=== PATIENT | male | born 1990 | race Two or more races ===

== ENCOUNTER 2023-01-21 14:36 | Emergency (ER) | payer OTHER, SELFPAY ==
[2023-01-21 14:40] VITALS: BP 138/82; PULSE 96; RESP 16; TEMP 36.3; O2SAT 97; BMI 39.2
--- NOTE | 2023-01-21 15:56 | CRLHL7_ITS ---
For Patients: As a result of the Century Cures Act, medical imaging exams and procedure reports are released immediately into your electronic medical record. You may view this report before your referring provider. If you have questions, please contact your health care provider. INDICATION: Head injury TECHNIQUE: CT head without contrast. COMPARISON: None. FINDINGS: CSF spaces: Within normal limits for age. Brain parenchyma: The bernal-white differentiation is normal. No sign of mass, hemorrhage, or midline shift. Skull base and calvarium: The visualized paranasal sinuses and mastoid air cells demonstrate no acute or significant findings. The visualized orbits are grossly unremarkable. No skull fractures. IMPRESSION: Unremarkable noncontrast head CT. Please note that all CT scans at this facility use dose modulation, iterative reconstruction, and/or weight-based dosing when appropriate to reduce radiation dose to as low as reasonably achievable. Dictated by Juvencio Lombardi MD @ 01/21/2023 5:15:16 PM (Electronically Signed)
--- NOTE | 2023-01-21 16:02 | ED_ITS ---
HPI - General Adult General Date Seen: 01/21/23 Chief complaint: Weakness Stated complaint: Fell Wednesday, dizzy since Time Seen by Provider: 01/21/23 15:43 Source: patient Mode of arrival: ambulatory Limitations: no limitations History of Present Illness HPI narrative: One patient is a 32-year-old male who fell one backward five days ago hitting his back and the back of his head on cement. He did not lose consciousness. He had immediate lightheadedness but no neurologic deficit. No bleeding or fluid from his ears or nose. In the past three days he has had some generalized weakness and vertigo. He vomited twice yesterday. He has been drinking but is not eating. No decreased level of consciousness, slurred speech, hearing or vision changes, focal neurologic deficit. No history of concussion. No other chronic health problems. He has not been taking any medications regularly. Related Data Previous Rx's Medication Instructions Recorded meclizine 25 mg tablet 25 mg PO TID PRN dizziness #15 tabs 01/21/23 Allergies Allergy/AdvReac Type Severity Reaction Status Date / Time No Known Drug Allergies Allergy Verified 01/21/23 14:42 Review of Systems Narrative: Review of systems is outlined above otherwise noted to be negative. PFSH PFSH Social History Smoking Status: Never smoker Do you use any of these nicotine containing products: None How often do you have a drink containing alcohol: never AUDIT-C Alcohol total score: 0 Non-prescribed substance use: denies use Exam Narrative: Exam Narrative: Vitals noted. HEENT: Conjunctiva clear. Tympanic membranes are pearly white bilaterally. Posterior pharynx is clear without erythema or exudate. Neck is supple without adenopathy, thyromegaly, carotid bruit. Full range of motion of the cervical spine. He has some tenderness on the left posterior skull but no bony deformity or crepitus is noted. No reproducible nystagmus. Lungs: Clear to auscultation in all joya. No wheezes, rales, rhonchi. Heart: Regular rate and rhythm without murmur. Abdomen: Soft and nontender. No guarding, rigidity, rebound. Bowel sounds are normal. No palpable masses. Extremities: No cyanosis or edema. Good distal pulses. Skin: No abnormalities noted of the exposed skin. Neurologic: Awake, alert, fully oriented. Neurologic exam is nonfocal. He is ambulatory without difficulty. Speech is clear. Const: Vital Signs, click to edit/add: Vital Signs - 24 hr 01/21/23 14:40 01/21/23 17:01 Temperature 97.3 F L 97.6 F Pulse Rate [Right Pulse Oximeter] 96 90 Respiratory Rate 16 16 Blood Pressure [Ri ght Upper Arm] 138/82 130/80 Pulse Oximetry 97 96 Oxygen Delivery Me thod Room Air Room Air Course Course Hospital Course: Patient seen and examined. IV is established she is given a L of normal saline. CT of his head is ordered. Reevaluation(s) Reevaluation #1: CT is unremarkable. He felt better after his IV fluids. He was also given a dose of meclizine 25 mg orally. Typical instructions following a closed head injury were given. Vital Signs Vital signs: Initial Vital Signs Temperature 97.3 F L 01/21/23 14:40 Temperature Source Temporal Artery Scan 01/21/23 14:40 Pulse Rate 96 01/21/23 14:40 Pulse Rhythm Regular 01/21/23 14:40 Pulse Strength 3+ Normal 01/21/23 14:40 Respiratory Rate 16 01/21/23 14:40 Blood Pressure 138/82 01/21/23 14:40 Blood Pressure Mean 100 01/21/23 14:40 Blood Pressure Position Sitting 01/21/23 14:40 Pulse Oximetry 97 01/21/23 14:40 Oxygen Delivery Method Room Air 01/21/23 14:40 Vital Signs Temperature 97.3 F L 01/21/23 14:40 Pulse Rate 96 01/21/23 14:40 Respiratory Rate 16 01/21/23 14:40 Blood Pressure 138/82 01/21/23 14:40 Pulse Oximetry 97 01/21/23 14:40 Oxygen Delivery Method Room Air 01/21/23 14:40 Temperature 97.6 F 01/21/23 17:01 Pulse Rate 90 01/21/23 17:01 Respiratory Rate 16 01/21/23 17:01 Blood Pressure 130/80 01/21/23 17:01 Pulse Oximetry 96 01/21/23 17:01 Oxygen Delivery Method Room Air 01/21/23 17:01 Discharge Plan Discharge Clinical Impression: Post concussive syndrome Patient Disposition: Home, Self-Care Condition: Improved Additional Instructions: No work until 01/25/2023. Rest, avoid screen time (TV, cellphone, computer). Push fluids. Tylenol or ibuprofen for headaches. Meclizine for vertigo. Follow-up with Dr Forrest if no better over the next 3-5 days. Prescriptions: New meclizine 25 mg tablet 25 mg PO TID PRN (Reason: dizziness) Qty: 15 0RF Follow Up/Referrals: Fe Forrest MD [Primary Care Provider] - Stand Alone Forms: [employer] Info Instructions
[2023-01-21] MEDS: 0.9 % SODIUM CHLORIDE 1000 ml 1,000 ML IV (16:25)
[2023-01-21] MEDS: MECLIZINE HCL 25 MG TABLET PO (16:59)
[2023-01-21 17:01] VITALS: BP 130/80; PULSE 90; RESP 16; TEMP 36.4; O2SAT 96
== END 2023-01-21 17:27 | disposition home or self-care (01) ==
PROVIDERS: Emergency Provider Family Medicine; PCP Family Medicine
DX: F07.81 Postconcussional syndrome (principal)
CPT/HCPCS: 70450; 99282; 99283; 99284; A9270; J7030

== ENCOUNTER 2024-06-19 08:17 | Outpatient (CLI) | payer OTHER, SELFPAY | END 2024-06-19 08:18 | disposition home or self-care (01) | LOC: AMB 06-21 03:13 | PROVIDERS: PCP Family Medicine; Visit Provider Family Medicine | DX: R56.9 Unspecified convulsions (principal); R42 Dizziness and giddiness | CPT/HCPCS: A0425; A0427 ==

== ENCOUNTER 2024-06-19 08:42 | Emergency (ER) | payer OTHER, SELFPAY ==
[2024-06-19 08:49] VITALS: BP 140/115; PULSE 154; RESP 22; TEMP 36.6; O2SAT 95; BMI 40.7
--- NOTE | 2024-06-19 09:01 | ED_ITS ---
HPI - General Adult General Time Seen by Provider: 09:01 Date Seen: 06/19/24 Chief complaint: Seizure Stated complaint: seizure Time Seen by Provider: 06/19/24 09:01 Source: patient and RN notes reviewed Mode of arrival: ambulatory Limitations: no limitations History of Present Illness HPI narrative: This 34-year-old male is brought in by ambulance with probable seizure. Patient was driving to work, started to notice his vision was blurring, he did drive a little bit thinking his eyes were maybe just dry. Eventually he pulled over and the next thing he noted he was on the ground with people around him. A witness whom talk to EMS stated he looks like he was having seizure activity. Patient noted with his vision closing in, he was feeling funny. He does not recollect any abnormal movements. His tongue is sore, did have blood it is mouth. He has never had a prior seizure. He notes he did hit his head in the shower yesterday. He had some alcohol Wednesday night, couple beers. Denies any chronic alcohol use, no illicit drug use, no medicines or supplements. He notes he does have severe anxiety. 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 Related Data Home Medications ?Medication ?Instructions ?Recorded ?Confirmed sertraline 50 mg tablet 50 mg PO DAILY 06/19/24 06/19/24 Previous Rx's ?Medication ?Instructions ?Recorded meclizine 25 mg tablet 25 mg PO TID PRN dizziness #15 tabs 01/21/23 Allergies Allergy/AdvReac Type Severity Reaction Status Date / Time No Known Drug Allergies Allergy Verified 01/21/23 14:42 Review of Systems Status of ROS: Reports: 6 or more systems reviewed and unremarkable except as noted in History and below [facility] Social History Smoking Status: Never smoker Do you use any of these nicotine containing products: None How often do you have a drink containing alcohol: never How often do you have six or more drinks on one occasion: Never AUDIT-C Alcohol total score: 0 Non-prescribed substance use: denies use Exam Const: Vital Signs, click to edit/add: Vital Signs - 24 hr 06/19/24 08:49 06/19/24 09:09 Temperature 98 F Pulse Rate [Right Pulse Oximeter] 154 H Respiratory Rate 22 Blood Pressure [Ri ght Upper Arm] 140/115 H Pulse Oximetry 95 94 Oxygen Delivery Me thod Room Air This 34-year-old male is alert, interactive, back to baseline, GCS 15/15. Pupils equal round reactive, sclera clear. He has some dried blood around his lips, can see a non bleeding bite on the left lateral tongue, some dried blood on along the tongue. Mucosa is dry. His speech is currently normal. CV fast but regular, no murmur. Lungs are clear, good air entry, no wheezing or crackles. Does seem mildly anxious but overall speech is normal and patient is lucid. Gross motor normal. He is able to follow commands at this time. No concern for any altered state at this time, not postictal. Documenting provider has reviewed patient's vital signs: yes Course Course ED Course: Patient's exam certainly seems to suggest that he did have a seizure with the tongue being bit. There was no loss of bowel or bladder but there is oral trauma. I doubt that this is anxiety, do feel that this represents seizure disorder. Will do head CT given that he did report hitting his head yesterday. Will do full laboratory workup. Reevaluation(s) Time of Reevaluation #1: 10:34 Reevaluation #1: Patient's heart rate is still elevated in the 130s, he states his only had a little coffee. He does not seem anxious any longer. Do think I will initiate some IV fluids. Will talk to Neurology on him, he will need follow-up outpatient. His potassium is mildly low, am replacing with oral. Did also review his elevated liver functions, will ultrasound just to ensure that we are not missing something but certainly could be fatty liver. I do supposed there is also the possibility that there can be anoxic injury but does not sound that he had an extended seizure. Time of Reevaluation #2: 13:28 Reevaluation #2: Provided copy of the ultrasound. We discussed that he very likely has fatty liver causing the elevated liver enzymes. He has had no further seizure activity, plan will be discharged to home. Reviewed with him that I did speak with his primary doctor, Dr. Munoz. She is aware of the elevated liver enzym es, did send her his ultrasound report. Will send her his liver enzyme levels. We have scheduled him a follow-up with her this week. She is placing stat referrals for Neurology for further seizure workup. I have discussed with him no driving, no operating machinery where he might get injured, no solitary bathing or swimming or hot tub until cleared by Neurology. We will provide him a note for work. Consultations Consultation #1: Did speak with Dr. Dhillon Neurology at [facility]. He recommended follow-up with [facility] or [facility]. He provided me with a general phone number from [facility]. Did contact [facility] and they would not let me talk to her provider, stated we needed to do the new referral as the patient had not been seen there before. Did review with them that this is a first-time seizure patient and he would have no reason to have seen them before. Reviewed that I was in the ER, do not have a referral process. Time: 10:55 Consultation #2: Spoke with patient's primary care provider Dr. Munoz. She is placing the neurology referral. Did discuss his liver enzymes and that we have an ultrasound pending, certainly could be fatty liver disease but does seem significant for liver enzymes. We will make sure she gets these results. Vital Signs Vital signs: Initial Vital Signs Temperature 98 F 06/19/24 08:49 Temperature Source Temporal Artery Scan 06/19/24 08:49 Pulse Rate 154 H 06/19/24 08:49 Pulse Rhythm Regular 06/19/24 08:49 Pulse Strength 3+ Normal 06/19/24 08:49 Respiratory Rate 22 06/19/24 08:49 Blood Pressure 140/115 H 06/19/24 08:49 Blood Pressure Mean 123 H 06/19/24 08:49 Blood Pressure Position Semi-Fowlers 06/19/24 08:49 Pulse Oximetry 95 06/19/24 08:49 Oxygen Delivery Method Room Air 06/19/24 08:49 Vital Signs Temperature 98 F 06/19/24 08:49 Pulse Rate 154 H 06/19/24 08:49 Respiratory Rate 22 06/19/24 08:49 Blood Pressure 140/115 H 06/19/24 08:49 Pulse Oximetry 95 06/19/24 08:49 Oxygen Delivery Method Room Air 06/19/24 08:49 Temperature 98 F 06/19/24 08:49 Pulse Rate 154 H 06/19/24 08:49 Respiratory Rate 22 06/19/24 08:49 Blood Pressure 140/115 H 06/19/24 08:49 Pulse Oximetry 94 06/19/24 09:09 Oxygen Delivery Method Room Air 06/19/24 08:49 Medications Administered Medications: Discontinued Medications Generic Name Dose Route Start Last Admin Trade Name Brendan PRN Reason Stop Dose Admin Lactated Ringer's 1,000 mls @ 1,000 mls/hr 06/19/24 10:46 06/19/24 11:37 Lactated Ringers 1000 Ml IV 06/19/24 11:45 Infused .Q1H ONE Infusion Potassium Bicarbonate 25 meq 06/19/24 10:45 06/19/24 12:36 Potassium Bicarb 25 Meq Effervescent Tab PO 06/19/24 12:46 25 meq Q2H HEMANTH Administration Medical Decision Making Lab Data Lab results reviewed: Yes I reviewed the patient's lab results Labs: Lab Results 06/19/24 06/19/24 06/19/24 Range/Units 09:01 09:09 10:52 WBC 11.27 H (4.50-11.00) K/uL RBC 5.15 (4.30-5.90) m/uL Hgb 16.4 (13.5-17.5) gm/dL Hct 48.9 (37.0-53.0) % MCV 95 (80-100) fL MCH 32 (26-34) pg MCHC 34 (32-36) gm/dL RDW Coeff of Ted 13.7 (11.5-15.5) % Plt Count 208 (140-440) K/uL Neut % (Auto) 55.8 (42.0-72.0) % Lymph % (Auto) 31.3 (20-44) % [place] % (Auto) 10.4 (0.0-11.0) % Eos % (Auto) 0.6 (0.0-7.0) % Baso % (Auto) 0.4 (0.0-3.0) % Neut # (Auto) 6.30 (1.7-7.0) K/uL Lymph # (Auto) 3.50 H (0.90-2.90) K/uL [place] # (Auto) 1.20 H (0.00-0.90) K/UL Eos # (Auto) 0.10 (0.00-0.50) K/uL Baso # (Auto) 0.00 (0.00-0.30) K/uL Abs Immat Gran (auto) 0.20 (0.00-0.30) K/uL Imm/Tot Granulo (auto) 1.5 % VBG pH 7.363 (7.32-7.43) VBG pCO2 26 L (40-50) mmHG VBG pO2 66.3 H (25-47) mmHG VBG HCO3 15 L (21-28) mmol/L Sodium 133 L (135-149) mmol/L Potassium 2.9 L* (3.6-5.1) mmol/L Chloride 93 L (96-114) mmol/L Carbon Dioxide 13 L (20-32) mmol/L Anion Gap 27 H (7-15) mEq/L BUN 9 (5-24) mg/dL Creatinine 1.4 (0.5-1.5) mg/dL Estimated Creat Clear 70.82 Estimated GFR 68 ml/min Glucose 185 H (60-115) mg/dL Lactate 14.9 H* (0.5-1.9) mmol/L Calcium 9.9 (8.4-10.6) mg/dL Magnesium 3.5 H (1.5-2.6) mg/dL Total Bilirubin 4.2 H (0.1-1.5) mg/dL AST 525 H (12-35) U/L ALT 205 H (4-50) U/L Alkaline Phosphatase 121 (40-150) U/L C-Reactive Protein 1.1 H (0.5-1.0) mg/dL Total Protein 9.1 H (6.0-8.3) g/dL Albumin 4.8 (3.3-5.0) g/dL Ethyl Alcohol < 0.01 L (0.01-0.03) % Lab Acknowledgement Test Added Imaging Data CT scan - head: Attestation: I have reviewed the pertinent imaging results. Radiologist's impression: Patient: AUGUSTA MCCLELLAN Facility:?[facility] Patient ID:?[id number] Site Patient ID:?[id number]. Site :?[id number] Study:?CT-Head w/o-06/19/2024 9:23:39 AM Ordering Physician:Vernell Diallo Final Report: Indication: Seizure, hit head Technique: Volumetric multidetector CT images of the head were obtained without the administration of low osmolar intravenous contrast. Comparison: CT head January 22, 2020 3rd Findings: There is no intra-axial or extra-axial fluid collection. There is no mass effect or midline shift. There is mild global cortical atrophy somewhat greater than expected for age. Lateral ventricles are grossly preserved in size and position. There are chronic small vessel disease changes in the subcortical and periventricular white matter without lost bernal-white differentiation. The orbits and their contents are grossly within normal limits. The bony calvarium is grossly intact. The paranasal sinuses are clear. The mastoid air cells are well aerated. Impression: Mild global cortical atrophy somewhat greater than expected for age with sulcal widening seen predominantly at the cerebral vertex. Persistent chronic small- vessel disease changes of the subcortical and periventricular white matter without evidence of acute intracranial abnormality. Please note that all CT scans at this facility use dose modulation, iterative reconstruction, and/or weight-based dosing when appropriate to reduce radiation dose to as low as reasonably achievable. Dictated by Luca Landry MD @ 06/19/2024 9:48:21 AM (Electronic Signature) US - abdomen: Attestation: I have reviewed the pertinent imaging results. Radiologist's impression: Patient: AUGUSTA MCCLELLAN Facility:?[facility] Patient ID:?[id number] Site Patient ID:?[id number] Site :?[id number] Study:?US-Abdomen limited-06/19/2024 11:34:57 AM Ordering Physician:?Kari Diallo Final Report: INDICATION: Elevated LFTs. TECHNIQUE: Ultrasound abdomen limited. Sonographic images of the right upper quadrant were obtained using bernal-scale and color Doppler images. COMPARISON: Abdominal ultrasound dated 12/01/2021. FINDINGS: Liver: Diffusely increased hepatic echogenicity. No suspicious masses. No intrahepatic biliary dilatation. Gallbladder: No stones or sludge. Normal wall thickness. No pericholecystic fluid. Common bile duct: 3 mm. The biliary tree is relatively poorly visualized due to bowel gas. Pancreas: Not well visualized. Right kidney: Normal in size. Normal echotexture and cortex. No suspicious masses, stones, or hydronephrosis. IMPRESSION: Diffusely increased hepatic echogenicity, compatible with steatosis. Dictated by Christopher De Souza MD @ 06/19/2024 12:02:39 PM (Electronic Signature) ECG Data Attestation: I personally reviewed and interpreted this ECG as follows: (Sinus tachycardia, 135 beats per minute. No acute ischemic change.) Prior ECG tracings: not available for review Discharge Plan Discharge Clinical Impression: New onset seizure, Fatty liver Instructions: New-Onset Seizure in Adults (ED) Additional Instructions: Follow up appointment is scheduled at the [facility] on 06/21 with a 10am appointment time. Please check in at 9:45am to complete paperwork. If you have any questions or need to reschedule, please call [phone][place] [address], should not operate any machinery where you might be injured if recurrent seizure happens; may shower but no unsupervised swimming, hot tubs or bath tubs until further cleared by Neurology. If you do have a recurrent seizure, call 911 and seek emergent medical evaluation. Your primary care provider has placed neurology referral, can review this with her when you are clinic later this week. Prescriptions: No Action meclizine 25 mg tablet 25 mg PO TID PRN (Reason: dizziness) Qty: 15 0RF sertraline 50 mg tablet 50 mg PO DAILY Follow Up/Referrals: Fe Forrest MD [Primary Care Provider] -
[2024-06-19 09:09] VITALS: O2SAT 94
--- NOTE | 2024-06-19 09:09 | CRLHL7_ITS ---
For Patients: As a result of the Century Cures Act, medical imaging exams and procedure reports are released immediately into your electronic medical record. You may view this report before your referring provider. If you have questions, please contact your health care provider. Indication: Seizure, hit head Technique: Volumetric multidetector CT images of the head were obtained without the administration of low osmolar intravenous contrast. Comparison: CT head January 22, 2020 Findings: There is no intra-axial or extra-axial fluid collection. There is no mass effect or midline shift. There is mild global cortical atrophy somewhat greater than expected for age. Lateral ventricles are grossly preserved in size and position. There are chronic small vessel disease changes in the subcortical and periventricular white matter without lost bernal-white differentiation. The orbits and their contents are grossly within normal limits. The bony calvarium is grossly intact. The paranasal sinuses are clear. The mastoid air cells are well aerated. Impression: Mild global cortical atrophy somewhat greater than expected for age with sulcal widening seen predominantly at the cerebral vertex. Persistent chronic small-vessel disease changes of the subcortical and periventricular white matter without evidence of acute intracranial abnormality. Please note that all CT scans at this facility use dose modulation, iterative reconstruction, and/or weight-based dosing when appropriate to reduce radiation dose to as low as reasonably achievable. Dictated by Luca Landry MD @ 06/19/2024 9:48:21 AM (Electronically Signed)
[2024-06-19 09:27] LABS: Lactate* 14.9 mmol/L (0.5-1.9)
[2024-06-19 09:27] LABS: PCO2 VBG 26 mmHG (40-50); pH VBG 7.363 (7.32-7.43)
[2024-06-19 09:28] LABS: HCO3 VBG 15 mmol/L (21-28); PO2 VBG 66.3 mmHG (25-47)
[2024-06-19 09:31] LABS: Albumin* 4.8 g/dL (3.3-5.0); Basophils Percent Auto 0.4 % (0.0-3.0); Chloride* 93 mmol/L (96-114); Eosinophils Percent Auto 0.6 % (0.0-7.0); Hematocrit 48.9 % (37.0-53.0); Hemoglobin* 16.4 gm/dL (13.5-17.5); Immature Granulocytes Pct Auto 1.5 %; Lymphocytes Percent Auto 31.3 % (20-44); Mean Corpuscular HGB Conc 34 gm/dL (32-36); Mean Corpuscular Hemoglobin 32 pg (26-34); Mean Corpuscular Volume 95 fL (80-100); Monocytes Percent Auto 10.4 % (0.0-11.0); Neutrophils Percent Auto 55.8 % (42.0-72.0); Platelet Count* 208 K/uL (140-440); RDW Coefficient of Variation % 13.7 % (11.5-15.5); Red Blood Count 5.15 m/uL (4.30-5.90); White Blood Count* 11.27 K/uL (4.50-11.00)
[2024-06-19 09:32] LABS: Sodium* 133 mmol/L (135-149)
[2024-06-19 09:34] LABS: Bilirubin Total* 4.2 mg/dL (0.1-1.5); Creatinine* 1.4 mg/dL (0.5-1.5); Est. Creatinine Clearance* 70.82; Estimated Glomerular Filt Rate 68 ml/min
[2024-06-19 09:35] LABS: Alkaline Phosphatase* 121 U/L (40-150); Anion Gap 27 mEq/L (7-15); Blood Urea Nitrogen* 9 mg/dL (5-24); Calcium* 9.9 mg/dL (8.4-10.6); Carbon Dioxide* 13 mmol/L (20-32); Glucose* 185 mg/dL (60-115); Total Protein* 9.1 g/dL (6.0-8.3)
[2024-06-19 09:38] LABS: C Reactive Protein* 1.1 mg/dL (0.5-1.0)
[2024-06-19 09:41] LABS: Aspartate Amino Transferase* 525 U/L (12-35); Slide Review Reflex No
[2024-06-19 09:59] LABS: Potassium* 2.9 mmol/L (3.6-5.1)
[2024-06-19 10:00] LABS: Ethanol* < 0.01 % (0.01-0.03)
[2024-06-19 10:11] LABS: Alanine Aminotransferase* 205 U/L (4-50)
--- NOTE | 2024-06-19 10:32 | CRLHL7_ITS ---
For Patients: As a result of the Century Cures Act, medical imaging exams and procedure reports are released immediately into your electronic medical record. You may view this report before your referring provider. If you have questions, please contact your health care provider. INDICATION: Elevated LFTs. TECHNIQUE: Ultrasound abdomen limited. Sonographic images of the right upper quadrant were obtained using bernal-scale and color Doppler images. COMPARISON: Abdominal ultrasound dated 12/01/2021. FINDINGS: Liver: Diffusely increased hepatic echogenicity. No suspicious masses. No intrahepatic biliary dilatation. Gallbladder: No stones or sludge. Normal wall thickness. No pericholecystic fluid. Common bile duct: 3 mm. The biliary tree is relatively poorly visualized due to bowel gas. Pancreas: Not well visualized. Right kidney: Normal in size. Normal echotexture and cortex. No suspicious masses, stones, or hydronephrosis. IMPRESSION: Diffusely increased hepatic echogenicity, compatible with steatosis. Dictated by Christopher De Souza MD @ 06/19/2024 12:02:39 PM (Electronically Signed)
[2024-06-19] MEDS: LACTATED RINGERS 1000 ML 1,000 ML IV (10:53)
[2024-06-19] MEDS: POTASSIUM BICARB 25 MEQ EFFERVESCENT TAB PO ×2 (10:53→12:36)
[2024-06-19 11:08] LABS: Magnesium* 3.5 mg/dL (1.5-2.6)
== END 2024-06-19 13:53 | disposition home or self-care (01) ==
PROVIDERS: Emergency Provider Family Medicine; PCP Family Medicine
DX: K76.0 Fatty (change of) liver, not elsewhere classified (principal); G40.89 Other seizures
CPT/HCPCS: 36415; 70450; 76705; 80053; 82077; 82803; 83605; 83735; 85025; 86140; 93005; 94761; 99285; A9270; J7120

== ENCOUNTER 2025-01-15 10:39 | Emergency (ER) | payer OTHER, SELFPAY ==
--- OUTSIDE RECORDS SUMMARY | 2024-12-28 16:48 | XMS_ITS | Encounter Summary ---
Author Organization [facility] Address [address] [place] [address] Care Team Providers Care District Gauger Name Role Phone Elsewhere, Pcp Primary Care Provider Unavailabl e Reason for Visit * Reason Comments Jaundice * Auth/Cert (Routine) Specialty Diagnoses / Procedures Referred By Contac t Referred To Contact Diagnoses Hyponatremia Hyperbilirubinemia Jaundice Procedures [facility] INIT HOSP IP/OBS SF/LOW Referral ID Status Reason Start Date Expiration Date Visits Re quested Visits Authorized [id number] 1 1 Encounter Details Date Type Department Care Team (Latest Contact Info) Description 12/28/2024 4:48 PM CDT - 12/31/2024 8:07 AM CDT Hospital Encounter [facility], [facility], Third Floor [address] [place] [address] [phone] Jeanine Thompson P.A.-C., M.S. [address] [place] [address] [phone] Regi Mcadams APRN, C.N.P., D.N.P., M.S.N. [address] [place] [phone] Tripp Ni M.D. [address] [place] [address] [phone] Hyperbilirubinemia (Primary Dx); Jaundice; Hyponatremia Discharge Disposition: Home or Self Care Social History Tobacco Use Types Packs/Day Years Used Date Smoking Tobacco: Never Smokeless Tobacco: Never Tobacco Cessation:Counseling Given: Not Answered Alcohol Use Standard Drinks/Week Comments Yes 84 (1 standard drink = 0.6 oz pure alcohol) Detox for withdrawal 02/08/2022 [facility] Utilities Answer Date Recorded In the past 12 months has e [employer], gas, oil, or water [employer] threatened to shut off services in your [...] things needed for daily living? No 12/30/2024 Dental Answer Date Recorded Dental: Regular Dentist Unknown 02/11/20 Housing Stability Answer Date Recorded What is your living situation today? I have a [facility] place to live 12/29/2024 Sex and [...] AM CDT DISCHARGE SUMMARY BRIEF OVERVIEW Hospital: [facility] Discharge Provider: Tripp Ni M.D. Primary Team: [facility] Medicine 1 ([facility]) Primary Care Providers: Elsewhere, Pcp (General) No [...] call within the next week, please call [phone]. 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 Other recommendations: Please ABSTAIN from alcohol for life If you have any questions regarding your hospitalization prior to your follow-up appointments, contact the [facility] Supervisor [employer] at [phone] and ask to speak with the [facility] Medicine ([facility]) Service. OUTPATIENT FOLLOW UP For appointment details [...] AM CDT You were discharged from the [facility] Medicine 1 ([facility]) Service. Please identify this service name if youcall with questions after hospitalization. Take a copy of this after visit summary to your appointment(s). ? [place], [place] ? JANUARY 05, 2025- Wednesday -1:00 PM- Hospital Follow-Up with Dr. Oliver, primary care provider, at [facility]. ? RECOMMENDATIONS: ? * PLEASE ARRIVE AT LEAST 15 MINUTES EARLY. ? * ? [facility] ? You may have outpatient appointments at [facility] that changed during your hospitalization.? Refer to your [facility] Patient Appointment Guide (PAG) for the most current schedule of appointments and detailed instructions of tests/procedures. ? Call [phone], if you did not receive a PAG or need to CANCEL any [facility] appointment(s). documented in this encounter Medications at Time of Discharge ondansetron (ZOFRAN) 4 mg tablet Take 4 mg by mouth every 6 (six) hours as needed. 11/19/2021 documented as of this encounter Progress Notes * Moises Temple M.D., M.S. - 12/30/2024 6:32 AM CDT T Medicine 1 ([facility]) PROGRESS NOTE SUBJECTIVE Interval Events: Mr. Bocanegra [...] is a 34 y.o. male hospitalized on [place] [address] ([facility]) for likely alcoholic hepatitis with signs of [...] medical student, Eleazar Antony. Plan discussed with [facility] Medicine 1 ([facility]) Employment Consultant, Dr. Ni, who was present during wu portionsof the evaluation today. Please page the [facility] Medicine 1 ([facility]) service pager at [phone] with any questions. Moises Temple M.D., M.Sc. [...] is hospitalized on RO DO3D in room [id number]. The patient was hospitalized on 12/28/2024 for Hyponatremia [E87.1], Hyperbilirubinemia [R17], and Jaundice [R17]. ASSESSMENT / PLAN ASSESSMENT Visit was aimed at addressing the consult. PLAN Social work will attempt to meet with the patient at a later date Karissa Alaniz, Remedios.S.W. 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 EtOH Use disorder - ethanol level < 10, monitoring CIWA scores without prn lorazepam, MVI w/min,monitoring & replacing refeeding labs. Jaden Ellis Pharm.D., R.Ph., BCPS documented in this encounter H&P Notes * Kassi Pascual M.D., Ph.D. - 12/29/2024 12:33 AM CDT [facility] Medicine 1 ([facility]) Admission Note SUBJECTIVE CHIEF COMPLAINT/REASON FOR VISIT: [...] The patient had elevated LFTs going back [id number] at which time patient had ALT and [...] years of age). 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 OBJECTIVE PHYSICAL EXAMINATION General: [...] / PLAN Mr. Bocanegra is hospitalized on [facility] 1 ([facility]) for evaluation and management of hyperbilirubinemia, hyponatremia [...] Home Please page the T Medicine 1 ([facility]) service pager at [phone] with any questions. Kassi Pascual M.D., Ph.D. [...] underlying cause. He has never seen a transit planner. He drinks at least eight 12oz beers [...] antibody, iron studies (TIBC, iron, ferritin), ceruloplasmin, [id number], alpha-fetoprotein, A1c, lipid panel POCUS to determine if amenable pocket for diagnostic paracentesis GI Hepatology consult Diphenhydramine prn for pruritis CIWA, thiamine, multivitamin, CM consult for substance use alcohol cessation Patient is not on any chronic home medications. Outpatient follow-up with Neurology as planned for recent seizure hx This is a senior resident supervisory note. Please see the graduate intern's note for further details. The patient will be discussed with the unix consultant in the morning. documented in this encounter Consult Notes * Ines Washington M.S.W., L.G.S.W. - 12/30/2024 3:50 PM CDTAssociated Order(s): IP CONSULT TO CARE MANAGEMENT Psychosocial Assessment SUBJECTIVE ASSESSMENT INFORMATION Referral Data Referral Source: Provider/Service Referral Reason: Psychosocial assessment, Chemical Health assessment Previous Assessment: No Technical Specialist Services Used: No Primary Language: Sami Technical Specialist Services Used: No Sexuality/Pronoun: Person(s) present during [...] OF PRESENT ILLNESS The patient presents to [place] ED due to jaundice and itchiness all over his body for the past few weeks. He was admitted to a general med floor - Dom 3 D room 345 with an admitting diagnosis of Hyperbilirubinemia. SOCIAL HISTORY Early Growth and Development: The patient met social and developmental milestones as expected. Family of Origin: The patient is one in a sib-set of 5. Citizenship: Unknown Resident Status: [place] Resident Marital Status: Family / Household: The patient resides in [place], [place] with his spouse and their 3 kids. Support System: spouse and family members Primary Caregiver: self Spirituality/Druze/Cultural Factors: Unknown History: No Highest Level of [...] Communication: Can write, Talks, Understands speaking, Understands Sami Shopping: Independent Medication Management: Independent Housekeeping: Independent Meal Prep: Independent Assistive Devices: None BASELINE SERVICES/RESOURCES Primary care clinic and provider: ELSEWHERE, PCP/Dr. Vikas Oliver MD ([phone]) Services/Resources: None ANTICIPATED NEEDS Anticipated Needs Functional [...] or his immediate [facility] concerns over his drinking. Substance [...] counter medications: Other: ASSESSMENT / PLAN DISCUSSION Search Engine Marketing Strategist met with the patient in his room on [address] to address the care management consult for substance use and to complete a psychosocial assessment. The patient was lying awake, watching TV. Search Engine Marketing Strategist introduced self and explained the role of an inpatient hospital social human services assistants and purpose of the visit. The patient was agreeable to meet. Lizet Bocanegra (92) is a 34 year old male who was born and raised in the [place], [place] area. He is one in a sib-set of 5. His parents are still living. He has regular contact with family members. The patient completed high school and went on and earned an AA degree. The patient is and has 3 children. The patient and family reside in a one level home in [place], [place]. There are 2 steps, with railing, [...] the transition of care/plan: None Karissa Martin, Toby.G.S.WLloyd 12/30/2024 * Camilla Beth M.D. - 12/29/2024 [...] steroids. He has not previously seen a Deputy Probation Officer. This is a supervisory note for medical [...] page the GI Hepatobiliary consult pager at [phone] with any questions or concerns. Cosigned by [...] [phone] DATE OF CONSULTATION: 12/29/2024 REQUESTING SERVICE: T Medicine 1 ([facility]) CHIEF COMPLAINT/REASON FOR VISIT We are seeing Lizet Bocanegra at the request of T Medicine 1 ([facility]) for the evaluation of new cirrhosis. HISTORY [...] has never previously been seen by a car rental sales assistant. Liver enzymes were not checked again until [...] Pleasepage the GI Hepatobiliary consult pager at [phone] with any questions or concerns. -- Charmaine [...] free from falls End of Shift Summary: [id number]. Pt had a temp of 38C but [...] PM CDT Care of patient transferred to nm by VIRGINIA Thompson. Disposition pending Facilitate admission. VITAL SIGNS BP 129/64 Pulse 102 Temp 36.6 ??C (Oral) Resp 20 Wt 112 kg SpO2 94% ED Course as of 12/28/24 2232 Amy December 28, 20242230 Potassium, P: 3.8 2231 Sodium, P(!): 127 1 Creatinine(!): 0.53 2231 Glucose, P: 108 1 Hemoglobin(!): 13.1 1 Platelet Count(!): 412 1 Leukocytes(!): 12.5 1 Lactate(!): 2.6 1 INR: 1.4 1 Lipase, S: 44 2231 Bilirubin, Total, S(!): 15.9 2231 Aspartate Aminotransferase [...] not been signed. Information might be incomplete. 2231 US Gallbladder and or Biliary Ducts Result [...] not been signed. Information might be incomplete. 2231 CT Abdomen Pelvis with IV Contrast Narrative [...] documented in this encounter Plan of Treatment Upcoming Encounters Date Type Department Care Team (Late st Contact Info) Description 01/17/2025 8:30 AM CDT Virtual Visit Division of Gastroenterology in [place], [place] [address] [place] [phone] Camilla Beth M.D. [address] [place] [phone] documented as of this encounter Procedures Procedure Name Priority Date/Time Associated Diagnosis Comments HEPATIC FUNCTION PANEL, S Routine 2024 9:00 AM CDT PROTHROMBIN TIME (PT), P Routine 9:00 AM CDT CBC WITH DIFFERENTIAL, B Routine 9:00 AM CDT BASIC METABOLIC PANEL, S/P [...] CAPACITY, S/P Routine 12/29/2024 10:16 AM CDT [id number], S Routine 10:16 AM CDT CERULOPLASMIN, S [...] PM CDT PROTHROMBIN TIME (PT), P STAT 025 5:17 PM CDT CBC WITH DIFFERENTIAL, B STAT 025 5:17 PM CDT LIPASE, S/P STAT 12/28/2024 [...] 9:00 AM CDT 12/30/2024 9:47 AM CDT Janki Perkins M.D. LAB BLOOD ADD-ON Final Resu lt [facility] [address] [place] [address], [facility] [address] [place] [address] * (ABNORMAL) CBC with Differential, Blood (12/30/2024 [...] - 6.45 x10(9)/L 12/30/2024 11:04 AM CDT [facility] Comment:Rechecked Lymphocytes 0.88(L) 0.95 - 3.07 x10(9)/L [...] ADD-ON Final Resu lt Performing Organization Address [facility] Co de Phone Number [facility] [address] DTL [facility] [address] 200 [place] [address] * (ABNORMAL) Prothrombin Time (PT) (12/30/2024 9:00 AM CDT) Prothrombin Time, P 15.8(H) 9.4 - 12.5 sec 12/30/2024 11:32 AM CDT DTL INR 1.4 0.9 - 1.1 12/30/2024 11:32 AM CDT DTL Comment: ----ADDITIONAL INFORMATION---- Standard intensity warfarin therapeutic range: 2.0 to 3.0 High intensity warfarin therapeutic range: 2.5 to 3.5 Blood (Blood, Venous) 12/30/2024 9:00 AM CDT 12/30/2024 9:33 AM CDT us Janki Perkins M.D. LAB BLOOD ADD-ON Final Resu lt Performing Organization Address City/[facility]/ZIP Co de Phone Number [facility] [address] [facility] 200 [place] [address] * (ABNORMAL) Hepatic Function Panel (12/30/2024 9:00 [...] 9:00 AM CDT 12/30/2024 9:47 AM CDT Janki Perkins M.D. LAB BLOOD ADD-ON Final Resu lt [facility] 200 [place] [address], [facility] 200 [place] [address] * Lactate for Sepsis with Reflex (12/29/2024 6:34 PM CDT) Pathologist [facility] Lactate, P 1.7 0.5 - 2.2 mmol/L 12/29/2024 7:02 PM CDT [facility] Blood (Blood, Venous) 12/29/2024 6:34 PM CDT 12/29/2024 6:40 PM CDT us Janki Perkins M.D. LAB BLOOD NON ADD-ON Final Result [facility] [address] [place] [address], [facility] STMA [facility] [address] [place] [address] * Bacteria / Avril Culture, Blood #2 (12/29/2024 6:34 PM CDT) Bacteria/Berenice da Culture, Blood No growth after 5 days of incubation. 01/03/2025 7:02 PM CDT DTL Blood (Blood, Peripheral Draw) 12/29/2024 6:34 PM CDT 12/29/2024 7:01 PM CDT Comment:Specimen Source Site : Blood us Janki Perkins M.D. LAB MICROBIOLOGY - GENERAL ORDERABLES Final Result Performing Organization Address City/[facility]/ZIP Co de Phone Number [facility] [address] [place] [address], [facility] [address] [place] [address] * Bacteria / Avril Culture, Blood #1 (12/29/2024 6:26 PM CDT) Bacteria/Berenice da Culture, Blood No growth after 5 days of incubation. 01/03/2025 7:02 PM CDT DTL Blood (Blood, Peripheral Draw) 12/29/2024 6:26 PM CDT 12/29/2024 7:01 PM CDT Comment:Specimen Source Site : Blood us Janki Perkins M.D. LAB MICROBIOLOGY - GENERAL ORDERABLES Final Result [facility] [address] [place] [address], [facility] [address] [place] [address] * US Paracentesis with Imaging Guidance (12/29/2024 [...] PM CDT DHPM Gross Appearance Serous 12/30/19 5:54 PM CDT DHPM Total Nucleated Cells 220 /mcL 12/29/2024 5:54 PM CDT [facility]PM Comment: ----REFERENCE VALUE---- Synovial: <150 /mcL Peritoneal: <500 /mcL Pleural: <500 /mcL Pericardial: <500 /mcL ----ADDITIONAL INFORMATION---- This test has been modified from the leak detection engineer's instructions. Its performance characteristics were determined by [facility] in a manner consistent with CLIA [...] Reviewed by: Tech 12/29/2024 9:11 PM CDT [facility] Fluid (Peritoneal Fluid) 12/29/2024 4:15 PM CDT Janki Perkins M.D. LAB BODY FLUIDS AND STOOLS ORDERABLES Final Result Performing Organization Address [facility]/ZIP Co de Phone Number [facility] 200 [place] [address], [facility] 200 [place] [address] * Bacterial Culture, Aerobic + Susceptibility (12/29/2024 4:15 PM CDT) Bacterial Culture, Aerobic + Susc No growth after 5 days of incubation. 01/03/2025 3:26 PM CDT DT Fluid (Peritoneum) 12/29/2024 4:15 PM CDT Narrative [facility] - 01/03/2025 3:26 PM CDT Bacterial Culture: Received Bactec aerobic and Bactec anaerobic bottles Janki Perkins M.D. LAB MICROBIOLOGY - GENERAL ORDERABLES Final Result Performing Organization Address [facility] de Phone Number [facility] 200 [place] [address], [facility] 200 [place] [address] * Phosphatidylethanol Confirmation (12/29/2024 11:10 AM CDT) PEth 16:0/18:1 (POPEth) by LC-MS/MS 457 Cutoff: 10 ng/mL 12/31/2024 2:16 PM CDT [facility] Comment: Phosphatidylethanol (PEth) homologues result interpretation [...] 10 ng/mL 12/31/2024 2:16 PM CDT [facility] Comment: PEth 16:0/18:2 (PLPEth) Reference ranges are not well established PEth Interpretation Positive. 12/31 2:16 PM CDT [facility] Comment: ----ADDITIONAL INFORMATION---- This report is intended for use in clinical monitoring and management of patients. It is not intended for use in employment-related testing. This test was developed and its performance characteristics determined by [facility] in a manner consistent with CLIA requirements. This test has not been cleared or approved by the U.S. Food and Drug Administration. Blood (Blood, Venous) 12/29/2024 11:10 AM CDT 12/29/2024 12:47 PM CDT Camilla Beth M.D. LAB BLOOD ADD-ON Final Result [facility] [address] [place] [address] [facility] [address] [place] [address] [place] [address] * (ABNORMAL) Phosphorus Inorganic (12/29/2024 10:16 AM CDT) Phosphorus (Inorganic), S 1.7(L) 2.5 - 4.5 mg/dL 12/29/2024 11:27 AM CDT DTL Blood (Blood, Venous) 12/29/2024 10:16 AM CDT 12/29/2024 11:01 AM CDT Kassi Pascual M.D., Ph.D. LAB BLOOD ADD-ON Final Result [facility] [address] [place] [address], [facility] [address] [place] [address] * (ABNORMAL) Lipid Panel (12/29/2024 10:16 AM CDT) Triglycerides 393(H) mg/dL 12/29/2024 12:30 PM CDT DTL Comment: ----REFERENCE VALUE---- Normal: <150 mg/dL Borderline [...] M.D., Ph.D. LAB BLOOD ADD-ON Final Result [facility] 200 [place], [place] [address] DTL [facility] 200 [place] [address] * (ABNORMAL) Hepatic Function Panel (12/29/2024 10:16 [...] M.D., Ph.D. LAB BLOOD ADD-ON Final Result [facility] 200 [place] [address], [facility] [address] [place] [address] * (ABNORMAL) Wlmir-1-Sibwysmybtw (12/29/2024 10:16 AM CDT) Nnvun-0-Cothhvo psin, S 239(H) 100 - 190 mg/dL 12/29/2024 4:10 PM CDT [facility] Blood (Blood, Venous) 12/29/2024 10:16 AM CDT 12/29/2024 2:54 PM CDT us Kassi Pascual M.D., Ph.D. LAB BLOOD ADD-ON Final Result [facility] [address] [place] [address] [facility] [address] [place] [address] * (ABNORMAL) Ceruloplasmin (12/29/2024 10:16 AM CDT) Ceruloplasmin, S 39.7(H) 19.0 - 31.0 mg/dL 12/29/2024 1:30 PM CDT [facility] Blood (Blood, Venous) 12/29/2024 10:16 AM CDT 12/29/2024 11:43 AM CDT Kassi Pascual M.D., Ph.D. LAB BLOOD ADD-ON Final Result Performing Organization Address City/[facility]/ZIP Co de Phone Number [facility] 200 [place] [address], [facility] 200 [place] [address] * Mitochondrial Antibodies (M2) (12/29/2024 10:16 AM CDT) Mitochondrial Ab, M2, S <0.1 <0.1 (Negative) U 12/29/2024 6:43 PM CDT [facility] Blood (Blood, Venous) 12/29/2024 10:16 AM CDT 12/29/2024 12:59 PM CDT us Kassi Pascual M.D., Ph.D. LAB BLOOD ADD-ON Final Result [facility] [address] [place] [address] [facility] [address] [place] [address] * (ABNORMAL) Immunoglobulin G (IgG) (12/29/2024 10:16 AM CDT) [facility] Immunoglobulin G (IgG), S 1780(H) 767 - 1590 mg/dL 12/29/2024 4:04 PM CDT [facility] Blood (Blood, Venous) 12/29/2024 10:16 AM CDT 12/29/2024 1:44 PM CDT us Kassi Pascual M.D., Ph.D. LAB BLOOD ADD-ON Final Result [facility] [address] [place] [address] [facility] [address] [place] [address] * (ABNORMAL) Ferritin (12/29/2024 10:16 AM CDT) [facility] Ferritin, S 417(H) 31 - 409 mcg/L 12/29/2024 11:27 AM CDT DT Blood (Blood, Venous) 12/29/2024 10:16 AM CDT 12/29/2024 10:49 AM CDT Kassi Pascual M.D., Ph.D. LAB BLOOD ADD-ON Final Result [facility] [address] [place], [place] [address] [place] [address] [facility] [address] [place] [address] * (ABNORMAL) Iron and Total Iron-Binding Capacity (12/29/2024 10:16 AM CDT) [facility] Iron 65 50 - 150 mcg/dL 12/29/2024 11:27 AM CDT DTL Total Iron Binding Capacity 177(L) 250 - 400 mcg/dL 12/29/2024 11:27 AM CDT DTL Percent Saturation 37 14 - 50 % 12/29/2024 11:27 AM CDT DTL Blood (Blood, Venous) 12/29/2024 10:16 AM CDT 12/29/2024 10:49 AM CDT Kassi Pascual M.D., Ph.D. LAB BLOOD ADD-ON Final Result Performing Organization Address [facility]/ZIP Co de Phone Number [facility] [address] [place] [address], [facility] DTL [facility] [address] [place] [address] * Smooth Muscle Antibodies (12/29/2024 10:16 AM CDT) Smooth Muscle Ab Screen, S Negative Negative 12/30/2024 10:42 AM CDT [facility] Comment: Negative: No further testing will be performed ----ADDITIONAL INFORMATION---- This test was developed and its performance characteristics determined by [facility] in a manner consistent with CLIA requirements. This test has not been cleared or approved by the U.S. Food and Drug Administration. Blood (Blood, Venous) 12/29/2024 10:16 AM CDT 12/29/2024 12:54 PM CDT Kassi Pascual M.D., Ph.D. LAB BLOOD ADD-ON Final Result Performing Organization Address City/[facility] Co de Phone Number [facility] [address] [place] [address] [facility] [address] [place] [address] [place] [address] * (ABNORMAL) EMANUEL (Antinuclear Antibodies) (12/29/2024 10:16 AM CDT) Antinuclear Ab, S 2.1(H) <=1.0 (Negative) U 12/29/2024 7:34 PM CDT [facility] Comment: Interpretation: Weak Positive (1.1-2.9) ----ADDITIONAL INFORMATION---- Method: Enzyme-linked immunoassay using HEp-2 nuclear extract supplemented with purified antigens. Blood (Blood, Venous) 12/29/2024 10:16 AM CDT 12/29/2024 12:58 PM CDT us Kassi Pascual M.D., Ph.D. LAB BLOOD ADD-ON Final Result [facility] [address] [place] [address] [facility] [address] [place] [address] * (ABNORMAL) CBC with Differential, Blood (12/29/2024 [...] - 6.45 x10(9)/L 12/29/2024 11:52 AM CDT DH Comment:Rechecked Lymphocytes 0.95 0.95 - 3.07 x10(9)/L 12/29/2024 11:52 AM CDT DTL Monocytes 1.19(H) 0.26 - 0.81 x10(9)/L 12/29/2024 11:52 AM CDT DTL Eosinophils 0.11 0.03 - 0.48 x10(9)/L 12/29/2024 11:52 AM CDT DTL Basophils 0.10(H) 0.01 - 0.08 x10(9)/L 12/29/2024 11:52 AM CDT DTL Blood (Blood, Venous) 12/29/2024 10:16 AM CDT 12/29/2024 10:37 AM CDT us Kassi Pascual M.D., Ph.D. LAB BLOOD ADD-ON Final Result [facility] [address] [place] [address], [facility] DTL [facility] [address] [place] [address] [facility] [address] [place] [address] * (ABNORMAL) Basic Metabolic Panel (12/29/2024 10:16 AM CDT) Pathologist [facility] Potassium, S 4.3 3.6 - 5.2 mmol/L [...] - 140 mg/dL 12/29/2024 11:27 AM CDT DT Blood (Blood, Venous) 12/29/2024 10:16 AM CDT 12/29/2024 10:49 AM CDT Kassi Pascual M.D., Ph.D. LAB BLOOD ADD-ON Final Result Performing Organization Address City/[facility]/ZIP Co de Phone Number [facility] [address] [place] [address] * Hemoglobin A1c (12/29/2024 10:15 AM CDT) Pathologist [facility] Hemoglobin A1c, B 4.8 4.0 - 5.6 % 12/29/2024 11:08 AM CDT [facility] Blood (Blood, Venous) 12/29/2024 10:15 AM CDT 12/29/2024 10:37 AM CDT Kassi Pascual M.D., Ph.D. LAB BLOOD ADD-ON Final Result Performing Organization Address [facility] Co de Phone Number [facility] [address] [place] [address] * HBs Antigen Scrn, Serum (12/29/2024 10:15 AM CDT) Pathologist [facility] HBs Antigen Scrn, S Negative Negative 12/29/2024 1:48 PM CDT [facility] Blood (Blood, Peripheral Draw) 12/29/2024 10:15 AM CDT 12/29/2024 1:04 PM CDT Kassi Pascual M.D., Ph.D. LAB MICROBIOLOGY - BLOOD ORDERABLES Final Result [facility] [address] [place] [address] [facility] [address] [place] [address] * HCV Ab w/Reflex to HCV PCR, Serum (12/29/2024 10:15 AM CDT) Pathologist [facility] HCV Ab, S Negative Negative 12/29/2024 1:48 PM CDT [facility] Comment: Consumption of high-dose biotin supplement within 12 hours of blood collection for this test can cause false-negative results. Blood (Blood, Venous) 12/29/2024 10:15 AM CDT 12/29/2024 1:04 PM CDT Kassi Pascual M.D., Ph.D. LAB MICROBIOLOGY - BLOOD ORDERABLES Final Result Performing Organization Address City/[facility]/ZIP Co de Phone Number [facility] [address] [place] [address] [place] [address] * Hepatitis A IgM Ab, Serum (12/29/2024 10:15 AM CDT) [facility] Hepatitis A IgM Ab, S Negative Negative 12/29/2024 1:48 PM CDT [facility] Comment: This result does not exclude the possibility of recent exposure to hepatitis A virus. Antibody level during early infection stage may be below the limit of detection of the assay. Consumption of high-dose biotin supplement within 12 hours of blood collection for this test can cause false-negative results. Blood (Blood, Peripheral Draw) 12/29/2024 10:15 AM CDT 12/29/2024 1:04 PM CDT us Kassi Pascual M.D., Ph.D. LAB MICROBIOLOGY - BLOOD ORDERABLES Final Result [facility] [address] [place] [address] [facility] [address] [place] [address] * Hepatitis B Core IgM Ab (12/29/2024 10:15 AM CDT) [facility] HBc IgM Ab, S Negative Negative 12/29/2024 1:48 PM CDT [facility] Comment: Consumption of high-dose biotin supplement within 12 hours of blood collection for this test can cause false-negative results. Blood (Blood, Peripheral Draw) 12/29/2024 10:15 AM CDT 12/29/2024 1:04 PM CDT Kassi Pascual M.D., Ph.D. LAB MICROBIOLOGY - BLOOD ORDERABLES Final Result Performing Organization Address [facility] Co de Phone Number [facility] [address] [place], [place] [id number] [place] [address] [place] [address] * Acetaminophen Level (12/29/2024 9:50 AM CDT) [facility] Acetaminophen, S <7 Therapeutic Range: 10-30 mcg/mL 12/29/2024 12:27 PM CDT DT Blood (Blood, Venous) 12/29/2024 9:50 AM CDT 12/29/2024 12:02 PM CDT Camilla Beth M.D. LAB BLOOD ADD-ON Final Result Performing Organization Address [facility] [place] [address], [address] [address] * (ABNORMAL) Magnesium (12/28/2024 11:42 PM CDT) [facility] Magnesium, P 2.4(H) 1.7 - 2.3 mg/dL 12/29/2024 12:16 AM CDT DT Blood (Blood, Venous) 12/28/2024 11:42 PM CDT 12/28/2024 11:52 PM CDT Regi Mcadams APRN, C.N.P., D.N.P., M.S.N. LAB BLO OD ADD-ON Final Result Performing Organization Address [facility] Co de Phone Number [facility] [address] [place] [address], [facility] 200 [place] [address] * (ABNORMAL) Phosphorus Inorganic (12/28/2024 11:42 PM CDT) Pathologist [facility] Phosphorus (Inorganic), P 1.6(L) 2.5 - 4.5 mg/dL 12/29/2024 12:16 AM CDT DTL Blood (Blood, Venous) 12/28/2024 11:42 PM CDT 12/28/2024 11:52 PM CDT Edilberto Mcguire APRN.N.P., [place].N.P., M.S.N. LAB BLO OD ADD-ON Final Result Performing Organization Address [facility] Co de Phone Number [facility] [address] [place] [address], [facility] [address] [place] [address] * Lactate (12/28/2024 11:42 PM CDT) [facility] Lactate, P 1.0 0.5 - 2.2 mmol/L 12/29/2024 12:17 AM CDT DTL Blood (Blood, Venous) 12/28/2024 11:42 PM CDT 12/28/2024 11:52 PM CDT us Regi Mcadams APRN, C.N.P., D.N.P., M.S.N. LAB BLO OD NON ADD-ON Final Result Performing Organization Address City/[facility]/ZIP Co de Phone Number [facility] [address] [place] [address], [facility] 200 [place] [address] * Ethanol Level, Serum (12/28/2024 11:42 PM CDT) Ethanol, S <10 <10 mg/dL 12/29/2024 12:24 AM CDT DTL Blood (Blood, Venous) 12/28/2024 11:42 PM CDT 12/29/2024 12:13 AM CDT us Jeanine Thompson P.A.-C., M.S. LAB BLOOD NON ADD -ON Final Result [facility] [address] [place] [address], [facility] [address] [place] [address] * US Liver with Liver Doppler (12/28/2024 [...] limits given known liverparenchymal disease/cirrhosis. us Ivan Meléndez M.D. Ge US PROCEDURES Ann l Result * CT [...] lesions. Lung bases are clear. Procedure Note Vikas Tejeda M.D. - 12/28/2024 EXAM: CT ABDOMEN PELVIS [...] (ABNORMAL) Lactate, B (12/28/2024 5:17 PM CDT) Lactate, B 2.6(H) 0.5 - 2.2 mmol/L 12/28/2024 5:26 PM CDT [facility] Blood (Blood, Venous) 12/28/2024 5:17 PM CDT 12/28/2024 5:24 PM CDT Deysi Garcia P.A.-C., M.S. LAB BLOOD NON ADD -ON Final Result [facility] [employer] [facility] [address] [place] [address], [facility] [address] [place] [address] * Lipase (12/28/2024 5:17 PM CDT) Lipase, S 44 13 - 60 U/L 12/28/2024 6: 02 PM CDT DT Blood (Blood, Venous) 12/28/2024 5:17 PM CDT 12/28/2024 5:44 PM CDT Deysi Garcia P.A.-C., M.S. LAB BLOOD ADD-ON Final Result [address] [place] [address] * (ABNORMAL) Prothrombin Time (PT) (12/28/2024 5:17 PM CDT) Prothrombin Time, P 15.7(H) 9.4 - 12.5 sec 12/28/2024 5:33 PM CDT [facility] INR 1.4 0.9 - 1.1 12/28/2024 5:33 PM CDT [facility] Comment: ----ADDITIONAL INFORMATION---- Standard intensity warfarin therapeutic range: 2.0 to 3.0 High intensity warfarin therapeutic range: 2.5 to 3.5 Blood (Blood, Venous) 12/28/2024 5:17 PM CDT 12/28/2024 5:24 PM CDT Deysi Garcia P.A.-C., M.S. LAB [place]OD [place] [address] * (ABNORMAL) Hepatic Function Panel (12/28/2024 5:17 [...] P.A.-C., M.S. LAB BLOOD ADD-ON Final Result [facility] [address] [place] [address], [facility] [address] [place] [address] * (ABNORMAL) Basic Metabolic Panel (12/28/2024 5:17 [...] P.A.-C., M.S. LAB BLOOD ADD-ON Final Result [facility] [address] [place] [address], [facility] STMA [facility] [address] [place] [address] DTL [facility] [address] [place] [address] * (ABNORMAL) CBC with Differential, Blood (12/28/2024 5:17 PM CDT) Hemoglobin 13.1(L) 13.2 - 16.6 g/dL 12/28/2024 [...] - 6.45 x10(9)/L 12/28/2024 6:17 PM CDT [facility] Comment:Rechecked Lymphocytes 0.96 0.95 - 3.07 x10(9)/L [...] P.A.-C., M.S. LAB BLOOD ADD-ON Final Result [facility] [address] [place] [address], [facility] [address] [place] [address] [facility] [address] [place] [address] documented in this encounter Visit Diagnoses Diagnosis [...] intravenous, Once in imaging, contrast, Starting on Amy 12/28/24 at 1928, For 1 dose, Imaging [...] mL/hr, Administer over 1 Hours, Once, On Amy 12/28/24 at 1829, For 1 dose New Bag 12/28/2024 6:38 PM CDT 1,000 mL 1000 mL/hr ldvqckhfg-avuryy-jwldbhqty 280-160-250 mg per packet 1 packet (Phos-NaK) [...] 1-100 mL 1-100 mL, intravenous, Once, On Amy 12/28/24 at 1929, For 1 dose, Imaging [...] Cano R.N.)2257 (Given - Provider: Erika Elizalde RCarey) 0615 (Given - Provider: Skip AcharyaN.)1434 (Given - Provider: Jaden Cano R.N.)2139 (Given - Provider: Erika Elizalde R.N.) 0556 (Given - Provider: Erika Elizalde R.N.) multivitamin/mineral-p renatal tablet 1 tablet 1 tablet, oral, Daily, First dose on Wed12/29/24 at 0900 0923 (Given - Provider: Jaden Cano R.N.) 0810 (Given - Provider: Jaden Cano R.N.) truqxuahd-tigksz-tggii hate 280-160-250 mg per packet 1 packet [...] R.N.)2259 (Given - Provider: Erika Elizalde R.N.) 0810 (Given - Provider: Jaden Cano R.N.)2012 (Given [...] injection documented in this encounter Care Teams District Gauger Relationship Specialty Start Date End Date Elsewhere, Pcp PCP - General Internal Medicine 7/12/22 documented as of this encounter
--- OUTSIDE RECORDS SUMMARY | 2025-01-08 05:33 | XMS_ITS | Continuity of Care Document ---
Author Organization [facility] Address [address] [address] [place] [address] Phone Care Team Providers Care Machining Supervisor Name Role Phone Anand Branham MD, Moises Avitia Unavailabl e Advance Directives Directive Yes / No Effective Date File Name No Information Encounters Encounter Description Practice Location Reason(s) For Visit Diagnoses Date Provider Providers Copied on Encounter [facility], [address] [address], [place], [place], [id number], [place] tel:[phone] [facility] No Information Anand De Leon. [address] [facility] [address], [place], [place], [id number], [place]. tel:[phone] Family History Family Member Type Diagnosis Age At Onset No Information Payers Payer name Insurance type Covered democrat ID Authoriza tion(s) No Information Social History Type Description Quantity Date Captured Comments Sex Male Smoking Status No Information Chief Complaint And Reason For Visit No Information Reason For Referral Reason For Referral No Information Plan Of Treatment Date Type Action Status Appointment Lizet Bocanegra BOOKED History Of Present Illness Encounter Date Complaint History Of Prese nt Illness No Information Functional Status Date Functional Assessmen t No Information Instructions Date Instruction Additional Infor mation No Information Assessments Type Assessment Date No Information Patient Care Teams Name Effective Dates (start - stop) Status Members No Information
--- OUTSIDE RECORDS SUMMARY | 2025-01-08 05:33 | XMS_ITS | Continuity of Care Document ---
Author Organization [facility] Address [address] [address] [place] [address] Phone Care Team Providers Care Spray Dyer Name Role Phone Anand Branham MD, Moises Avitia Unavailabl e Advance Directives Directive Yes / No Effective Date File Name No Information Encounters Encounter Description Practice Location Reason(s) For Visit Diagnoses Date Provider Providers Copied on Encounter [facility], [address] [address], [place], [place], [id number], [place] tel:[phone] [facility] No Information Anand De Leon. [address] [facility] [address], [place], [place], [id number], [place]. tel:[phone] Family History Family Member Type Diagnosis Age At Onset No Information Payers Payer name Insurance type Covered constitution party ID Authoriza tion(s) No Information Social History [...]
--- OUTSIDE RECORDS SUMMARY | 2025-01-15 10:43 | XMS_ITS | Clinical Summary ---
Author Organization [facility] Address [address] [place] [address] Care Team Providers Care Assistant Manager/Embalmer Name Role Phone Elsewhere, Pcp Primary Care Provider Unavailabl e Source Comments Patient records contain information from all sites at [facility]. For routine questions regarding patient records, call [phone] during business hours, M-F 8:00 AM - 5:00 PM Central Time. Record requests for emergency care only can be directed to [phone] at any time.[facility] Allergies No known active allergies Medications ondansetron (ZOFRAN) 4 mg tablet Take 4 mg by mouth every 6 (six) hours as needed. 2 Active LORazepam (ATIVAN) 1 mg tablet Take 1 mg by mouth 2 (two) times a day. 2 12/30/19 25 Discontinued Active Problems Problem Noted Date Diagnosed Date Hyperbilirubinemia 12/28/2024 Hematuria 02/10/2022 Encounters Date Type Department Care Team Description 12/31/2024 Clinical Communication Division of Gastroenterology in [place], [place] [address] [place] [phone] Evon Colby M.D. 12/29/2024 Clinical Communication [facility] [address] [place] [phone] Nate Pinto M.D. 12/28/2024 4:48 PM CDT - 12/31/2024 8:07 AM CDT Hospital Encounter [facility], [facility] Third Floor [address] [place] [phone] Jeanine Thompson P.A.-C., M.S. Regi Mcadams APRN C.N.P., D.N.P., M.S.N. Tripp Ni M.D. Hyperbilirubinemia (Primary Dx); Jaundice; Hyponatremia Discharge Disposition: Home or Self Care from Last 3 Months Social History Tobacco Use Types Packs/Day Years Used Date Smoking Tobacco: Never Smokeless Tobacco: Never Tobacco Cessation:Counseling Given: Not Answered Alcohol Use Standard Drinks/Week Comments Yes 84 (1 standard drink = 0.6 oz pure alcohol) Detox for withdrawal 02/08/2022 [facility] [employer] Answer Date Recorded In the past 12 months has [facility] [employer], gas, oil, or water [employer] threatened to shut off services in your [...] Date Recorded Dental: Regular Dentist Unknown 02/11/20 22 Housing Stability Answer Date Recorded What is your living situation today? I have a [facility] place to live 12/29/2024 Sex and Gender Information Value Date Recorded Sex Assigned at Not on file Legal Sex Male 12:18 PM CDT Gender Identity Not on file Sexual Orientation Not on file Last Filed Vital Signs Vital Sign Reading [...] Mass Index 40.07 12/29/2024 12:08 AM CDT Plan of Treatment Upcoming Encounters Date Type Department Care Team (Late st Contact Info) Description 01/17/2025 8:30 AM CDT Virtual Visit Division of Gastroenterology in [place], [place] [address] [place] [phone] Camilla Beth M.D. [address] [place] [phone] Health Maintenance Due Date Last Done Comments HIV Screening 1992 DTaP,Tdap,and Td Vaccines (1 - Tdap) 02/21/2011 Hepatitis B Vaccines (1 of 3 - 19+ 3-dose series) 02/21/2011 COVID-19 Vaccine ( - 2023-2 5 season) 2024 Influenza Vaccine (#1) 2024 Depression Screening (Annual PHQ-2) 08/02/2024 Hepatitis B Screening Discontinued 11/25/2021 HPV Vaccines Aged Out No longer eligi ble based on patient's age to complete this topic IPV Vaccines Aged Out No longer eligi ble based on patient's age to complete this topic Pneumococcal vaccine (0-49 years) Aged Out No longer eligible based on patient's age to complete this topic Procedures Procedure Name Priority Date/Time Associated Diagnosis Comments BASIC METABOLIC PANEL, S/P Routine 12/30/2024 9:00 AM CDT CBC WITH DIFFERENTIAL, B Routine 9:00 AM CDT PROTHROMBIN TIME (PT), P Routine 9:00 AM CDT HEPATIC FUNCTION PANEL, S Routine 2024 9:00 AM CDT ADULT OXYGEN THERAPY Routine [...] and all outpatients) 12/29/2024 4:32 PM CDT CELL COUNT AND DIFFERENTIAL, BF Timed 12/29/2024 4:15 PM CDT Hyperbilirubine carmina Jaundice Hyponatremia BACTERIAL CULTURE, AEROBIC + SUSC Timed 12/29/2024 4:15 PM CDT Hyperbilirubine carmina Jaundice Hyponatremia PHOSPHATIDYLETHANOL CONFIRMATION, B Routine 12/29/2024 11:10 AM CDT PHOSPHORUS (INORGANIC), S Routine 2024 10:16 AM CDT LIPID PANEL, S Routine 12/29/2024 10:16 AM CDT HEPATIC FUNCTION PANEL, S Routine 2024 10:16 AM CDT BZLAQ-1-[id number], S Routine 10:16 AM CDT CERULOPLASMIN, S Routine 12/29/2024 10:16 AM CDT MITOCHONDRIAL ABS (M2), S Routine 2024 10:16 AM CDT IMMUNOGLOBULIN G (IGG), S Routine 2024 10:16 AM CDT FERRITIN, S Routine 12/29/2024 10:16 AM CDT IRON AND TOT IRON-BINDING CAPACITY, S/P Routine 12/29/2024 10:16 AM CDT SMOOTH MUSCLE ABS, S Routine 12/29/2024 10:16 AM CDT ANTINUCLEAR ABS (EMANUEL), S Routine 025 10:16 AM CDT CBC WITH DIFFERENTIAL, B Routine 025 10:16 AM CDT BASIC METABOLIC PANEL, S/P Routine 12/29/2024 10:16 AM CDT HEMOGLOBIN A1C, B Routine 12/29/2024 10:15 AM CDT HBS ANTIGEN SCRN, S Routine 12/29/2024 10:15 AM CDT HCV AB W/REFLEX TO HCV PCR, S Routine 12/29/2024 10:15 AM CDT HEPATITIS A IGM AB Routine 12/29/2024 10:15 AM CDT HEP B CORE AB, IGM Routine 12/29/2024 10:15 AM CDT ACETAMINOPHEN LEVEL, S Routine 9:50 AM CDT ADULT OXYGEN THERAPY Routine 12/29/2024 8:01 AM CDT ADULT OXYGEN THERAPY Routine 12/29/2024 1:11 AM CDT ADULT OXYGEN THERAPY Routine 12/29/2024 1:11 AM CDT ADULT OXYGEN THERAPY Routine 12/29/2024 1:11 AM CDT MAGNESIUM, S STAT 12/28/2024 11:42 PM CDT PHOSPHORUS (INORGANIC), S STAT 2024 11:42 PM CDT LACTATE, B/P STAT 12/28/2024 11:42 PM CDT ETHANOL, S STAT 12/28/2024 11:42 PM CDT US LIVER [...] LACTATE, B STAT 12/28/2024 5:17 PM CDT LIPASE, S/P STAT 12/28/2024 5:17 PM CDT PROTHROMBIN TIME (PT), P STAT 025 5:17 PM CDT HEPATIC FUNCTION PANEL, S STAT 2024 5:17 PM CDT BASIC METABOLIC PANEL, S/P STAT 12/28/2024 5:17 PM CDT CBC WITH DIFFERENTIAL, B STAT 025 5:17 PM CDT from Last 3 Months Results * (ABNORMAL) Hepatic Function Panel (12/30/2024 9:00 AM CDT) Only the most recent of3 resultswithin the time period is included. Bilirubin, Total, S 15.8(H) 0.0 - 1.2 [...] M.D. LAB BLOOD ADD-ON Final Resu lt [facility] [address] [place] [address], [facility] DTL [facility] [address] [place] [address] * (ABNORMAL) Prothrombin Time (PT) (12/30/2024 9:00 AM CDT) Only the most recent of2 resultswithin the time period is included. Prothrombin Time, P 15.8(H) 9.4 - 12.5 sec 12/30/2024 11:32 AM CDT DTL INR 1.4 0.9 - 1.1 12/30/2024 11:32 AM CDT DTL Comment: ----ADDITIONAL INFORMATION---- Standard intensity warfarin therapeutic range: 2.0 to 3.0 High intensity warfarin therapeutic range: 2.5 to 3.5 Blood (Blood, Venous) 12/30/2024 9:00 AM CDT 12/30/2024 9:33 AM CDT us Janki Perkins M.D. LAB BLOOD ADD-ON Final Resu lt [facility] [address] [place] [address], [facility] [address] [place] [address] * (ABNORMAL) CBC with Differential, Blood (12/30/2024 9:00 AM CDT) Only the most recent of3 resultswithin the time period is included. Pathologist [facility] Hemoglobin 12.7(L) 13.2 - 16.6 g/dL 12/30/2024 [...] - 6.45 x10(9)/L 12/30/2024 11:04 AM CDT [facility] Comment:Rechecked Lymphocytes 0.88(L) 0.95 - 3.07 [...] M.D. LAB [place]LOOD [place] [address], [facility] DTL [facility] [address] [place] [address] * (ABNORMAL) Basic Metabolic Panel (12/30/2024 9:00 AM CDT) Only the most recent of3 resultswithin the time period is included. Potassium, S 4.2 3.6 - 5.2 mmol/L [...] ADD-ON Final Resu lt Performing Organization Address City/[facility]/ZIP Co de Phone Number [address] [place] [address] * Lactate for Sepsis with Reflex (12/29/2024 6:34 PM CDT) [facility] Lactate, P 1.7 0.5 - 2.2 mmol/L 12/29/2024 7:02 PM CDT [facility] Blood (Blood, Venous) 12/29/2024 6:34 PM CDT 12/29/2024 6:40 PM CDT Janki Perkins M.D. LAB BLOOD NON [place] [address] * Bacteria / Avril Culture, Blood #2 (12/29/2024 6:34 PM CDT) Only the most recent of2 resultswithin the time period is included. Bacteria/Berenice da Culture, Blood No growth after 5 days of incubation. 01/03/2025 7:02 PM CDT DTL Blood (Blood, Peripheral Draw) 12/29/2024 6:34 PM CDT 12/29/2024 7:01 PM CDT Comment:Specimen Source Site : Blood us Janki Perkins M.D. LAB MICROBIOLOGY - GENERAL ORDERABLES Final Result [facility] [address] [place] [address], [place] [facility] [address] [place] [address] * US Paracentesis with Imaging Guidance (12/29/2024 [...] POST-PROCEDURE DIAGNOSIS: Ascites. IMPRESSION: Ultrasound-guided paracentesis. EP Janki Perkins M.D. IMG US PROCEDURES Final Res ult * Bacterial Culture, Aerobic + Susceptibility (12/29/2024 4:15 PM CDT) Bacterial Culture, Aerobic + Susc No growth after 5 days of incubation. 01/03/2025 3:26 PM CDT DTL Fluid (Peritoneum) 12/29/2024 4:15 PM CDT Narrative [facility] - 01/03/2025 3:26 PM CDT Bacterial Culture: Received Bactec aerobic and Bactec anaerobic bottles Janki Perkins M.D. LAB MICROBIOLOGY - GENERAL ORDERABLES Final Result [facility] [address] [place] [address], [place] [facility] [address] [place] [address] * Cell Count and Differential, Body Fluid [...] This test has been modified from the spinning bath person's instructions. Its performance characteristics were determined by [facility] in a manner consistent with CLIA [...] or maligna nt cells seen. Reviewed by: Ina 12/29/2024 9:11 PM CDT DHPM Fluid (Peritoneal Fluid) 12/29/2024 4:15 PM CDT us Janki Perkins M.D. LAB BODY FLUIDS AND STOOLS ORDERABLES Final Result [facility] [address] [place] [address], [facility] [address] [place] [address] * Phosphatidylethanol Confirmation (12/29/2024 11:10 AM CDT) PEth 16:0/18:1 (POPEth) by LC-MS/MS 457 Cutoff: 10 ng/mL 12/31/2024 2:16 PM CDT [facility] Comment: Phosphatidylethanol (PEth) homologues result interpretation [...] Cutoff: 10 ng/mL 12/31/2024 2:16 PM CDT [facility] Comment: PEth 16:0/18:2 (PLPEth) Reference ranges are not well established PEth Interpretation Positive. 12/31 2:16 PM CDT [facility] Comment: ----ADDITIONAL INFORMATION---- This report is intended for use in clinical monitoring and management of patients. It is not intended for use in employment-related testing. This test was developed and its performance characteristics determined by [facility] in a manner consistent with CLIA requirements. This test has not been cleared or approved by the U.S. Food and Drug Administration. Blood (Blood, Venous) 12/29/2024 11:10 AM CDT 12/29/2024 12:47 PM CDT us Camilla Beth M.D. LAB BLOOD ADD-ON Final Result [facility] [address] [place] [address] [facility] [address] [place] [address] [place] [address] * (ABNORMAL) Lipid Panel (12/29/2024 10:16 AM [...] M.D., Ph.D. LAB BLOOD ADD-ON Final Result [facility] [address] [place] [address], [place] DTL [facility] [address] [place] [address] * (ABNORMAL) Iron and Total Iron-Binding Capacity (12/29/2024 10:16 AM CDT) Iron 65 50 - 150 mcg/dL 12/29/2024 11:27 AM CDT DTL Total Iron Binding Capacity 177(L) 250 - 400 mcg/dL 12/29/2024 11:27 AM CDT DTL Percent Saturation 37 14 - 50 % 12/29/2024 11:27 AM CDT DT Blood (Blood, Venous) 12/29/2024 10:16 AM CDT 12/29/2024 10:49 AM CDT Kassi Pascual M.D., Ph.D. LAB BLOOD ADD-ON Final Result Performing Organization Address [facility]/ZIP Co de Phone Number [facility] [address] [place] [address], [facility] [address] [place] [address] * (ABNORMAL) Qougj-6-Cvibyjwtzgm (12/29/2024 10:16 AM CDT) Nvmci-3-Yjceoki psin, S 239(H) 100 - 190 mg/dL 12/29/2024 4:10 PM CDT [facility] Blood (Blood, Venous) 12/29/2024 10:16 AM CDT 12/29/2024 2:54 PM CDT Kassi Pascual M.D., Ph.D. LAB BLOOD ADD-ON Final Result [facility] [address] [place] [address] [facility] [address] [place] [address] * (ABNORMAL) Ceruloplasmin (12/29/2024 10:16 AM CDT) Ceruloplasmin, S 39.7(H) 19.0 - 31.0 mg/dL 12/29/2024 1:30 PM CDT DT Blood (Blood, Venous) 12/29/2024 10:16 AM CDT 12/29/2024 11:43 AM CDT us Kassi Pascual M.D., Ph.D. LAB BLOOD ADD-ON Final Result Performing Organization Address City/[facility]/ZIP Co de Phone Number [facility] [address] [place] [address], [facility] [address] [place] [address] * Mitochondrial Antibodies (M2) (12/29/2024 10:16 AM CDT) Mitochondrial Ab, M2, S <0.1 <0.1 (Negative) U 12/29/2024 6:43 PM CDT [facility] Blood (Blood, Venous) 12/29/2024 10:16 AM CDT 12/29/2024 12:59 PM CDT us Kassi Pascual M.D., Ph.D. LAB BLOOD ADD-ON Final Result Performing Organization Address [facility] Co de Phone Number [facility] [address] [place] [address] [facility] [address] [place] [address] * Smooth Muscle Antibodies (12/29/2024 10:16 AM CDT) Smooth Muscle Ab Screen, S Negative Negative 12/30/2024 10:42 AM CDT [facility] Comment: Negative: No further testing will be performed ----ADDITIONAL INFORMATION---- This test was developed and its performance characteristics determined by [facility] in a manner consistent with CLIA requirements. This test has not been cleared or approved by the U.S. Food and Drug Administration. Blood (Blood, Venous) 12/29/2024 10:16 AM CDT 12/29/2024 12:54 PM CDT us Kassi Pascual M.D., Ph.D. LAB BLOOD ADD-ON Final Result Performing Organization Address [facility]/ZIP Co de Phone Number [facility] [address] [place] [address] [facility] [address] [place] [address] [place] [address] * (ABNORMAL) EMANUEL (Antinuclear Antibodies) (12/29/2024 10:16 AM CDT) Antinuclear Ab, S 2.1(H) <=1.0 (Negative) U 12/29/2024 7:34 PM CDT [facility] Comment: Interpretation: Weak Positive (1.1-2.9) ----ADDITIONAL INFORMATION---- Method: Enzyme-linked immunoassay using HEp-2 nuclear extract supplemented with purified antigens. Blood (Blood, Venous) 12/29/2024 10:16 AM CDT 12/29/2024 12:58 PM CDT Kassi Pascual M.D., Ph.D. LAB BLOOD ADD-ON Final Result Performing Organization Address [facility] Co de Phone Number [facility] [address] [place] [address] [place] [address] [place] [address] * (ABNORMAL) Phosphorus Inorganic (12/29/2024 10:16 AM CDT) Only the most recent of2 resultswithin the time period is included. Pathologist [facility] Phosphorus (Inorganic), S 1.7(L) 2.5 - 4.5 mg/dL 12/29/2024 11:27 AM CDT DTL Blood (Blood, Venous) 12/29/2024 10:16 AM CDT 12/29/2024 11:01 AM CDT Kassi Pascual M.D., Ph.D. LAB BLOOD ADD-ON Final Result Performing Organization Address City/[facility]/ZIP Co de Phone Number [facility] [address] [facility] [address] [place] [address] * (ABNORMAL) Immunoglobulin G (IgG) (12/29/2024 10:16 AM CDT) [facility] Immunoglobulin G (IgG), S 1780(H) 767 - 1590 mg/dL 12/29/2024 4:04 PM CDT [facility] Blood (Blood, Venous) 12/29/2024 10:16 AM CDT 12/29/2024 1:44 PM CDT Kassi Pacsual M.D., Ph.D. LAB BLOOD ADD-ON Final Result [facility] [address] [place] [address] [facility] [address] [place] [address] * (ABNORMAL) Ferritin (12/29/2024 10:16 AM CDT) [facility] Ferritin, S 417(H) 31 - 409 mcg/L 12/29/2024 11:27 AM CDT [facility] Blood (Blood, Venous) 12/29/2024 10:16 AM CDT 12/29/2024 10:49 AM CDT Kassi Pascual M.D., Ph.D. LAB BLOOD ADD-ON Final Result [facility] [address] [place] [address], [facility] [address] [place] [address] * HBs Antigen Scrn, Serum (12/29/2024 10:15 AM CDT) [facility] HBs Antigen Scrn, S Negative Negative 12/29/2024 1:48 PM CDT [facility] Blood (Blood, Peripheral Draw) 12/29/2024 10:15 AM CDT 12/29/2024 1:04 PM CDT Result [facility] Kassi Pascual M.D., Ph.D. LAB MICROBIOLOGY - BLOOD ORDERABLES Final Result Performing Organization Address City/[facility] Co de Phone Number [facility] [address] [place] [address] [facility] [address] [place] [address] * HCV Ab w/Reflex to HCV PCR, Serum (12/29/2024 10:15 AM CDT) HCV Ab, S Negative Negative 12/29/2024 1:48 PM CDT [facility] Comment: Consumption of high-dose biotin supplement within 12 hours of blood collection for this test can cause false-negative results. Blood (Blood, Venous) 12/29/2024 10:15 AM CDT 12/29/2024 1:04 PM CDT Result [facility] Kassi Pascual M.D., Ph.D. LAB MICROBIOLOGY - BLOOD ORDERABLES Final Result Performing Organization Address [facility] de Phone Number [facility] [address] [place] [address] [facility] [address] [place] [address] * Hepatitis A IgM Ab, Serum (12/29/2024 10:15 AM CDT) Hepatitis A IgM Ab, S Negative Negative 12/29/2024 1:48 PM CDT [facility] Comment: This result does not exclude the possibility of recent exposure to hepatitis A virus. Antibody level during early infection stage may be below the limit of detection of the assay. Consumption of high-dose biotin supplement within 12 hours of blood collection for this test can cause false-negative results. Blood (Blood, Peripheral Draw) 12/29/2024 10:15 AM CDT 12/29/2024 1:04 PM CDT Result [facility] Kassi Pascual M.D., Ph.D. LAB MICROBIOLOGY - BLOOD ORDERABLES Final Result Performing Organization Address City/[facility]/ZIP Co de Phone Number [facility] [address] [place] [address] [facility] [address] [place] [address] * Hepatitis B Core IgM Ab (12/29/2024 10:15 AM CDT) Pathologist [facility] HBc IgM Ab, S Negative Negative 12/29/2024 1:48 PM CDT [facility] Comment: Consumption of high-dose biotin supplement within 12 hours of blood collection for this test can cause false-negative results. Blood (Blood, Peripheral Draw) 12/29/2024 10:15 AM CDT 12/29/2024 1:04 PM CDT Kassi Pascual M.D., Ph.D. LAB MICROBIOLOGY - BLOOD ORDERABLES Final Result Performing Organization Address [facility] Co de Phone Number [facility] [address] [place] [address] [facility] [address] [place] [address] * Hemoglobin A1c (12/29/2024 10:15 AM CDT) Pathologist [facility] Hemoglobin A1c, B 4.8 4.0 - 5.6 % 12/29/2024 11:08 AM CDT DTL Blood (Blood, Venous) 12/29/2024 10:15 AM CDT 12/29/2024 10:37 AM CDT Kassi Pascual M.D., Ph.D. LAB BLOOD ADD-ON Final Result [facility] [address] [place] [address], [facility] [address] [place] [address] * Acetaminophen Level (12/29/2024 9:50 AM CDT) Pathologist [facility] Acetaminophen, S <7 Therapeutic Range: 10-30 mcg/mL 12/29/2024 12:27 PM CDT DTL Blood (Blood, Venous) 12/29/2024 9:50 AM CDT 12/29/2024 12:02 PM CDT Camilla Beth M.D. LAB BLOOD ADD-ON Final Result Performing Organization Address City/[facility]/ZIP Co de Phone Number [facility] [address] [place] [address] * Ethanol Level, Serum (12/28/2024 11:42 PM CDT) Ethanol, S <10 <10 mg/dL 12/29/2024 12:24 AM CDT DTL Blood (Blood, Venous) 12/28/2024 11:42 PM CDT 12/29/2024 12:13 AM CDT Jeanine Thompson P.A.-C., M.S. LAB BLOOD NON ADD -ON Final Result Performing Organization Address [facility] Co de Phone Number [facility] [address] [place] [address] * (ABNORMAL) Magnesium (12/28/2024 11:42 PM CDT) Magnesium, P 2.4(H) 1.7 - 2.3 mg/dL 12/29/2024 12:16 AM CDT DTL Blood (Blood, Venous) 12/28/2024 11:42 PM CDT 12/28/2024 11:52 PM CDT Regi Mcadams APRN, C.N.P., D.N.P., M.S.N. LAB BLO OD ADD-ON Final Result Performing Organization Address City/[facility]/ZIP Co de Phone Number [facility] [address] [place] [address] * Lactate (12/28/2024 11:42 PM CDT) Lactate, P 1.0 0.5 - 2.2 mmol/L 12/29/2024 12:17 AM CDT DTL Blood (Blood, Venous) 12/28/2024 11:42 PM CDT 12/28/2024 11:52 PM CDT us Regi Mcadams APRN, C.N.P., D.N.P., M.S.N. LAB BLO OD NON ADD-ON Final Result [facility] [address] [place] [address], [facility] DTL [facility] [address] [place] [address] * US Liver with Liver Doppler (12/28/2024 [...] bowel gas. Other: Trace ascites. Procedure Note McMenomy, Miah P, M.D. - 12/29/2024 EXAM: US LIVER WITH [...] and hepatic veins. us Ivan Meléndez M.D. IMGe US PROCEDURES Ann l Result * US [...] limits given known liverparenchymal disease/cirrhosis. us Ivan ENRIQUEZ US PROCEDURES Ann l Result * CT [...] LAB BLOOD NON ADD -ON Final Result Performing Organization Address City/[facility]/ZIP Co de Phone Number [facility] [address] [place] [address], [facility] STMA [facility] [address] [place] [address] * Lipase (12/28/2024 5:17 PM CDT) Lipase, S 44 13 - 60 U/L 12/28/2024 6: 02 PM CDT DTL Blood (Blood, Venous) 12/28/2024 5:17 PM CDT 12/28/2024 5:44 PM CDT Deysi Garcia P.A.-C., M.S. LAB BLOOD ADD-ON Final Result Performing Organization Address [facility] Co de Phone Number [facility] [address] [place] [address], [facility] DTL [facility] [address] [place] [address] from Last 3 Months Insurance [employer] Advance Directives For more information, please contact: [phone] * Full Code (Latest Code Status on File) Date Activated Date Inactivated Comments 12/29/2024 1:11 AM 12/31/2024 10:12 AM Question Answer Comments Full Code: Discussed Care Teams Assistant Manager/Embalmer Relationship Specialty Start Date End Date Elsewhere, Pcp PCP - General Internal Medicine 02/10/22
--- OUTSIDE RECORDS SUMMARY | 2025-01-15 10:43 | XMS_ITS | Encounter Summary ---
Author Organization [facility] Address [address] [place] [id number] Care Team Providers Care Pluck Separator Name Role Phone Elsewhere, Pcp Primary Care Provider Unavailabl e Encounter Details Date Type Department Care Team (Latest Contact Info) Description 12/31/2024 Clinical Communication Division of Gastroenterology in [place], [place] [address] [place] [phone] Evon Colby M.D. [address] [place] [address] Social History Tobacco Use Types Packs/Day Years Used Date Smoking Tobacco: Never Smokeless Tobacco: Never Alcohol Use Standard Drinks/Week Comments Yes 84 (1 standard drink = 0.6 oz pure alcohol) Detox for withdrawal 02/08/2022 [facility] Utilities Answer Date Recorded In the past 12 months has [facility] [employer], gas, oil, or water [employer] threatened to shut off services in your [...] your living situation today? I have a [facility] place to live 12/29/2024 Sex and Gender Information Value Date Recorded Sex Assigned at Not on file Legal Sex Male 12:18 PM CDT Gender Identity Not on file Sexual Orientation Not on file documented as of this encounter Plan of Treatment Upcoming Encounters Date Type Department Care Team (Late st Contact Info) Description 01/17/2025 8:30 AM CDT Virtual Visit Division of Gastroenterology in [place], [place] [address] [place] [address] Camilla Beth M.D. [address] [place] [address] documented as of this encounter Visit Diagnoses Diagnosis Alcoholic Hepatitis Without Ascites (HCC)- Primary documented in this encounter Care Teams Pluck Separator Relationship Specialty Start Date End Date Elsewhere, Pcp PCP - General Internal Medicine 02/10/22 documented as of this encounter
--- OUTSIDE RECORDS SUMMARY | 2025-01-15 10:44 | XMS_ITS | Encounter Summary ---
Author Organization [facility] Address [address] [place] [id number] Care Team Providers Care Technical Services Assistant Name Role Phone Elsewhere, Pcp Primary Care Provider Unavailabl e Reason for Referral * Outpatient (Routine) - Authorized Specialty Diagnoses / Procedures Referred By Contac t Referred To Contact Diagnoses Other Seizures (HCC) Procedures EEG routine - awake and sleep VT INJ TRIGGER PNT >=3 MUS Carmella Contreras M.D. [address] [place] [address] Phone: tel: fax: [facility] Region Referral ID Status Reason Start Date Expiration Date V isits Requested Visits Authorized [id number] Authorized 12/29/2024 03/31/2026 1 1 * Outpatient (Routine) - Authorized Specialty Diagnoses / Procedures Referred By Contac t Referred To Contact Neurology Diagnoses Other Seizures (HCC) Carmella Contreras M.D. [address] [place] [address] Phone: tel: fax: [facility] Region Referral ID Status Reason Start Date Expiration Date V isits Requested Visits Authorized [id number] Authorized 12/29/2024 06/30/2026 1 1 Encounter Details Date Type Department Care Team (Late st Contact Info) Description 12/29/2024 Clinical Communication [facility] [address] [place] [address] Nate Pinto M.D. [address] [place] [address] Social History Tobacco Use Types Packs/Day Years Used Date Smoking Tobacco: Never Smokeless Tobacco: Never Alcohol Use Standard Drinks/Week Comments Yes 84 (1 standard drink = 0.6 oz pure alcohol) Detox for withdrawal 02/08/2022 [facility] Utilities Answer Date Recorded In the past 12 months has [facility] [employer], gas, oil, or water [employer] threatened to shut off services in your [...] your living situation today? I have a [facility] place to live 12/29/2024 Sex and [...] CDT Virtual Visit Division of Gastroenterology in [place], [place] [address] [place] [address] Camilla Beth M.D. [address] [place] [address] Scheduled Orders Name Type Priority Associated Diagnoses Orde r Schedule EEG routine - awake and sleep Neurology Routine Other Seizures (HCC) Expected: 01/12/2025, Expires: 03/31/2026 Scheduled Referrals Name Type Priority Associated Diagnoses Orde r Schedule Neurology - Epilepsy consult (clinic) Outpatient Referral Routine Other Seizures (HCC) Expected: 01/12/2025 (Approximate), Expires: 03/31/2026 documented as of this encounter Visit Diagnoses Diagnosis Other Seizures (HCC)- Primary documented in this encounter Care Teams Technical Services Assistant Relationship Specialty Start Date End Date Elsewhere, Pcp PCP - General Internal Medicine 02/10/22 documented as of this encounter
--- OUTSIDE RECORDS SUMMARY | 2025-01-15 10:44 | XMS_ITS | Clinical Summary ---
Author Organization [facility] Address [address] [place] [id number] Care Team Providers Care Web Knitter Name Role Phone Vikas Oliver MD Primary Care P rovider Allergies No known active allergies Medications cholestyramine 4 gram powdIndications:El evated bilirubin Mix 4 g in liquid then take by mouth 2 times daily if needed (Use 4g 1-2x per day as needed for itching). 231 g 5 Active multivitamin no.36-folate no.6 1 mg chewIndications:He patitis Chew by mouth. 5 Active thiamine 100 mg tabletIndications: Hepatitis Take 1 Tablet (100 mg) by mouth once daily. 5 Active sertraline (ZOLOFT) 50 mg tabletIndications: Current moderate episode of major depressive disorder, unspecified whether recurrent (HC),Anxiety Take 1 Tablet (50 mg) by mouth once daily. 30 Tablet 1 4 12/28/19 25 Discontinu ed(*Med complete/R egimen complete/L evel of care change) oxyCODONE (ROXICODONE) 5 mg immediate release tabletIndications: Right sided abdominal pain Take 1 Tablet (5 mg) by mouth every 6 hours if needed for Pain. 6 Tablet 5 12/28/19 25 Discontinu ed(*Med complete/R egimen complete/L evel of care change) ondansetron (ZOFRAN ODT) 4 mg disintegrating tabletIndications: RUQ pain Place 1 Tablet (4 mg) on the tongue every 8 hours if needed for Nausea/Vom iting. 10 Tablet 12/28/19 Discontinu ed(*Med complete/R egimen complete/L evel of care change) Active Problems Problem Noted Date Diagnosed Date Portal hypertension 01/07/2025 Alcoholic cirrhosis of liver with ascites 2024 Hyperbilirubinemia 12/28/2024 Elevated LFTs 12/27/2024 New onset seizure 06/21/2024 Fatty liver 06/21/2024 Recurrent dislocation of right shoulder 04/25/20 Depression 04/14/2024 Anxiety 04/14/2024 Encounters Date Type Department Care Team Description 01/15/2025 Telephone [facility] [address] [place] [address] Vikas Oliver MD Other (Sick) 01/14/2025 2:00 PM CDT Telemedicine [facility] [address] [place] [address] Zora Moon NP Telehealth (/My stomach being bloated and my stool. /No vitals taken -virtual visit./) 01/09/2025 Nurse Triage [facility] [address] [place] [address] Vikas Oliver MD Leg Swelling 01/06/2025 4:18 PM CDT - 01/06/2025 9:13 PM CDT Emergency [facility] [address] [place] [address] Cal Love PA Cirrhosis of liver with ascites, unspecified hepatic cirrhosis type (HC) (Primary Dx); Hyperbilirubinemia Discharge Disposition: Home Self Care 01/06/2025 Travel 01/05/2025 1:00 PM CDT Office Visit [facility] [address] [place] [address] Vikas Oliver MD Hospital F/U (Yellow skin and eyes and itching 12/28-12/31/24) 01/05/2025 Travel 12/27/2024 2:15 PM CDT Office Visit [facility] [address] [place] [address] Vikas Oliver MD Concerns (Eyes jaundice/itching skin) 12/27/2024 Travel 12/27/2024 Nurse Triage [facility] [address] [place] [address] Josie Munoz, DO Jaundice 10/27/2024 Telephone [facility] [address] [place] [address] Josie Munoz, DO Questions (Paperwork) from Last 3 Months Family History Medical History Relation Name Comments Diabetes type II Father Hypertension Father Relation Name Status Comments Father Social History Tobacco Use Types Packs/Day Years Used Date Smoking Tobacco: Never Smokeless Tobacco: Never Tobacco Cessation:Counseling Given: Yes Alcohol Use Standard Drinks/Week Comments Not Currently 0 (1 standard drink = 0.6 oz pur e alcohol) PHQ-2 Answer Date Recorded PHQ-2 TOTAL SCORE 2 04/06/2024 Social Connections Answer Date Recorded Do you often feel lonely or isolated from those around you? 4 04/06/2024 Financial Resource Strain Answer Date R ecorded Difficulty of Paying Living Expenses 3 04/06/2024 Difficulty of Paying Living Expenses Not on file 04/06/2024 Food Insecurity Answer Date Recorded Do you worry your food will run out before you are able to buy more? 1 04/06/2024 Transportation Needs Answer Date Record ed Does lack of transportation keep you from medica l appointments? 1 04/06/2024 Does lack of transportation keep you from work, meetings or getting things that you need? 1 04/06/2024 Housing Stability Answer Date Recorded What is your housing situation today? 1 04/06/2024 Interpersonal Safety Answer Date Record ed Are you being hit, kicked, p ushed or yelled at (see row info)? No 01/06/2025 Interpersonal Safety Abuse 12 - 18 Not on file 01/06/2025 Interpersonal Safety Ambulatory Vulnerability No t on file 01/06/2025 Utilities Answer Date Recorded Do you have trouble paying f or utilities (for example, heat, electricity, water, phone)? 1 04/06/2024 Sex and Gender Information Value Date Recorded Sex Assigned at Male 10/11/2024 10:03 AM CDT Legal Sex Male 6:11 AM CDT Gender Identity Male 10/11/2024 10:03 AM CDT Sexual Orientation Straight 10/11/2024 10 :03 AM CDT Obstetrics History Last Filed Vital Signs Vital Sign Reading Time Taken Comments Blood Pressure 120/70 01/06/2025 9:11 PM CDT Pulse 108 01/06/2025 9:11 PM CDT Temperature 36.1 C (97 F) 01/06/2025 4:28 PM CDT Respiratory Rate 18 01/06/2025 6:27 PM CDT Oxygen Saturation 94% 01/06/2025 9:11 PM CDT Inhaled Oxygen Concentration - - Weight 113.4 kg (250 lb) 01/06/2025 4:28 PM CDT Height 167.6 cm (5' 6) 01/06/2025 4:28 PM CDT Body Mass Index 40.35 01/06/2025 4:28 PM CDT Plan of Treatment Health Maintenance Due Date Last Done Comments Tdap 02/21/2003 HIV for age 15-65 02/21/2007 Hepatitis B series for 19+ ( 1 of 3 - 19+ 3-dose series) 02/21/2011 Pneumococcal series for age 6-49 (1 of 2 - PCV) 02/21/2011 Tetanus booster 2012 BMI (ht and wt on same day) for age 18+ 04/15/2022 04/15/2021, 02/13/2021 COVID-19 vaccine series ( - 2023- season) 2024 Influenza Vaccine (Season Ended) 2025 Depression screening for age 12+ 04/06/2025 04/06/2024, 11/28/2021, 11/27/2021, Additional history exists Hepatitis C screening for ag e 18-79 Completed 11/25/2021 Procedures Procedure Name Priority Date/Time Associated Diagnosis Comments CT ABDOMEN PELVIS W STAT 01/06/2025 7 :[address] CHEST PE STUDY STAT 01/06/2025 7:2 2 PM CDT RED CELL MORPHOLOGY STAT 01/06/2025 5 :20 PM CDT PLATELET ESTIMATE STAT 01/06/2025 5:2 0 PM CDT MANUAL DIFFERENTIAL STAT 01/06/2025 5 :20 PM CDT CBC WITH AUTO DIFFERENTIAL STAT 01/06/2025 5:20 PM CDT ETHANOL SERUM OR PLASMA STAT 01/06/2025 5:20 PM CDT D-DIMER,QUANTITATIVE STAT 01/06/2025 5:20 PM CDT TROPONIN T (HS) ACUTE W/2HR REFLEX STAT 01/06/2025 5:20 PM CDT BLOOD GAS,VENOUS STAT 01/06/2025 5:20 PM CDT PROTIME-INR STAT 01/06/2025 5:20 PM CDT PRO-BNP STAT 01/06/2025 5:20 PM CDT LIPASE STAT 01/06/2025 5:20 PM CDT HEPATIC FUNCTION PANEL STAT 01/06/2025 5:20 PM CDT CBC WITH AUTO DIFFERENTIAL STAT 01/06/2025 5:20 PM CDT BASIC METABOLIC PANEL STAT 01/06/2025 5:20 PM CDT EKG 12 LEAD STAT 01/06/2025 4:44 PM CDT HEPATIC FUNCTION PANEL Routine 12/27/2024 3:10 PM CDT Fatty liver Jaundice LIPID PANEL Routine 12/27/2024 3:10 PM CDT Fatty liver PROTIME-INR Routine 12/27/2024 3:08 PM CDT Fatty liver Jaundice ANTI HCV Add On 11/25/2021 10:00 AM CDT Elevated liver enzymes from Last 3 Months or Most Recently Relevant to Health Maintenance Results * CT ABDOMEN PELVIS W (01/06/2025 7:23 PM CDT) Anatomical Region Laterality Modality Abdomen, Pelvis, AORTA, LIVER, SPLEEN Computed Tomography 01/06/2025 8:09 PM CDT Impressions 01/06/2025 8:09 PM CDT 1. Cirrhotic liver morphology with stigmata of portal venous hypertension, including small volume of ascites, gastroesophageal and splenic varices and splenomegaly. 2. Mild gallbladder wall thickening is nonspecific and can be seen with hepatic dysfunction. 3. Moderate pancolonic wall thickening, nonspecific but suggestive of portal colopathy. Please note that all CT scans at this facility use dose modulation, iterative reconstruction, and/or weight-based dosing when appropriate to reduce radiation dose to as low as reasonably achievable. Dictated by Jorge Luis Kothari MD @ 01/06/2025 8:09:32 PM (Electronically Signed) Narrative 01/06/2025 8:09 PM CDT For Patients: As a result of the Century Cures Act, medical imaging exams and procedure reports are released immediately into your electronic medical record. You may view this report before your referring provider. If you have questions, please contact your health care provider. INDICATION: Abdominal pain. TECHNIQUE: Multiplanar CT examination of the abdomen and pelvis was performed after the administration of 100 mL Omnipaque 350 intravenous contrast. COMPARISON: CT abdomen pelvis 10/11/2024. FINDINGS: Lower chest: No focal consolidation. Normal heart size. No pleural effusions or pneumothorax. Linear bandlike opacifications of the lungs bilaterally, likely subsegmental atelectasis and/or scarring. Liver: Cirrhotic liver morphology. Gallbladder: Mild gallbladder wall thickening. Biliary: Unremarkable. Pancreas: Within normal limits. Spleen: Splenomegaly. Adrenal glands: Unremarkable. Renal/ureters/bladder: Normal in size and symmetrically enhancing. No obstructive uropathy. No hydronephrosis or obstructive urinary calculi. No suspicious renal masses. The ureters appear unremarkable. The bladder is within normal limits. Pelvis: Unremarkable. Gastrointestinal: Diffuse pancolonic wall thickening, likely portal colopathy. No bowel obstruction. Normal appendix. No significant colonic diverticulosis. Mild colonic stool burden. Vasculature: No aortic aneurysm. The portal vein remains patent. Mild atherosclerotic calcifications. Gastroesophageal and splenic varices. Lymph nodes: No pathologic lymphadenopathy by size criteria. Peritoneum: Small volume ascites. No drainable fluid collections. No pneumoperitoneum. Abdominal wall/soft tissues: Soft tissue nodule in the left anterior abdominal wall, likely sebaceous cyst. Bones: No acute osseous abnormalities. Multilevel degenerative changes of the visualized thoracolumbar spine. Procedure Note TayeJorge Luish, DO - 01/06/2025 For Patients: As a result of the Cures Act, medical imagingexams and procedure reports are released immediately into your electronicmedical record. You may view this report before your referring provider.If you have questions, please contact your health care provider. INDICATION: Abdominal pain. TECHNIQUE: Multiplanar CT examination of the abdomen and pelvis was performed afterthe administration of 100 mL Omnipaque 350 intravenous contrast. COMPARISON: CT abdomen pelvis 10/11/2024. FINDINGS: Lower chest: No focal consolidation. Normal heart size. No pleuraleffusions or pneumothorax. Linear bandlike opacifications of the lungsbilaterally, likely subsegmental atelectasis and/or scarring. Liver: Cirrhotic liver morphology. Gallbladder: Mild gallbladder wall thickening. Biliary: Unremarkable. Pancreas: Within normal limits. Spleen: Splenomegaly. Adrenal glands: Unremarkable. Renal/ureters/bladder: Normal in size and symmetrically enhancing. Noobstructive uropathy. No hydronephrosis or obstructive urinary calculi. Nosuspicious renal masses. The ureters appear unremarkable. The bladder iswithin normal limits. Pelvis: Unremarkable. Gastrointestinal: Diffuse pancolonic wall thickening, likely portalcolopathy. No bowel obstruction. Normal appendix. No significant colonicdiverticulosis. Mild colonic stool burden. Vasculature: No aortic aneurysm. The portal vein remains patent. Mildatherosclerotic calcifications. Gastroesophageal and splenic varices. Lymph nodes: No pathologic lymphadenopathy by size criteria. Peritoneum: Small volume ascites. No drainable fluid collections. Nopneumoperitoneum. Abdominal wall/soft tissues: Soft tissue nodule in the left anteriorabdominal wall, likely sebaceous cyst. Bones: No acute osseous abnormalities. Multilevel degenerative changes ofthe visualized thoracolumbar spine. IMPRESSION: 1. Cirrhotic liver morphology with stigmata of portal venous hypertension,including small volume of ascites, gastroesophageal and splenic varicesand splenomegaly. 2. Mild gallbladder wall thickening is nonspecific and can be seen withhepatic dysfunction. 3. Moderate pancolonic wall thickening, nonspecific but suggestive ofportal colopathy. Please note that all CT scans at this facility use dose modulation,iterative reconstruction, and/or weight-based dosing when appropriate toreduce radiation dose to as low as reasonably achievable. Dictated by Jorge Luis Kothari MD @ 01/06/2025 8:09:32 PM (Electronically Signed) Cal COLEMAN CT Final Re sult * CT CHEST PE STUDY (01/06/2025 7:22 PM CDT) Anatomical Region Laterality Modality CHEST, THORAX, HEART Computed To mography 01/06/2025 8:04 PM CDT Impressions 01/06/2025 8:04 PM CDT 1. Poor enhancement of the pulmonary artery limits evaluation. No central or proximal pulmonary emboli seen. 2. Basilar atelectasis. 3. Splenomegaly. Fatty appearance of the liver with hepatomegaly. Mild upper abdominal ascites. Please note that all CT scans at this facility use dose modulation, iterative reconstruction, and/or weight-based dosing when appropriate to reduce radiation dose to as low as reasonably achievable. Dictated by Estelita Fisher MD @ 01/06/2025 8:04:38 PM (Electronically Signed) Narrative 01/06/2025 8:04 PM CDT For Patients: As a result of the 21st Century Cures Act, medical imaging exams and procedure reports are released immediately into your electronic medical record. You may view this report before your referring provider. If you have questions, please contact your health care provider. INDICATION: PE suspected TECHNIQUE: CT chest was acquired with 100 cc Omnipaque 350 IV contrast. Coronal and MIP reconstructions were performed. COMPARISON: CT 10/11/2024 FINDINGS: Lungs and pleura: No suspicious nodules or infiltrates. No pleural effusions, pleural thickening, or pneumothorax. Lungs are hypoinflated. Atelectasis Basilar Heart and vasculature: Heart size is normal. Thoracic aorta and pulmonary artery are normal in caliber. Extremely limited exam with poor Enhancement of the pulmonary artery. No central or proximal pulmonary emboli seen Lymph nodes/mediastinum: No mediastinal, hilar, or axillary adenopathy. Chest wall: No masses. Upper abdomen: Splenomegaly measuring 18.6 centimeters heterogeneous fatty appearance of the liver. Hepatomegaly. Mild upper abdominal ascites Bones: Unremarkable for age. Procedure Note Estelita Fisher MD - 01/06/2025 For Patients: As a result of the Century Cures Act, medical imagingexams and procedure reports are released immediately into your electronicmedical record. You may view this report before your referring provider.If you have questions, please contact your health care provider. INDICATION: PE suspected TECHNIQUE: CT chest was acquired with 100 cc Omnipaque 350 IV contrast. Coronal andMIP reconstructions were performed. COMPARISON: CT 10/11/2024 FINDINGS: Lungs and pleura: No suspicious nodules or infiltrates. No pleuraleffusions, pleural thickening, or pneumothorax. Lungs are hypoinflated. Atelectasis Basilar Heart and vasculature: Heart size is normal. Thoracic aorta and pulmonaryartery are normal in caliber. Extremely limited exam with poorEnhancement of the pulmonary artery. No central or proximal pulmonaryemboli seen Lymph nodes/mediastinum: No mediastinal, hilar, or axillary adenopathy. Chest wall: No masses. Upper abdomen: Splenomegaly measuring 18.6 centimeters heterogeneous fattyappearance of the liver. Hepatomegaly. Mild upper abdominal ascites Bones: Unremarkable for age. IMPRESSION: 1. Poor enhancement of the pulmonary artery limits evaluation. No centralor proximal pulmonary emboli seen. 2. Basilar atelectasis. 3. Splenomegaly. Fatty appearance of the liver with hepatomegaly. Mildupper abdominal ascites. Please note that all CT scans at this facility use dose modulation,iterative reconstruction, and/or weight-based dosing when appropriate toreduce radiation dose to as low as reasonably achievable. Dictated by Estelita Fisher MD @ 01/06/2025 8:04:38 PM (Electronically Signed) us Cal Danny COLEMAN CT Final Re sult * TROPONIN T (HS) ACUTE W/2HR REFLEX (01/06/2025 5:20 PM CDT) TROPONIN T HS <6 6-15 ng/L ng/L 01/06/2025 5:53 PM CDT [facility] Blood BLOOD SPECIMEN / Unknown Venipuncture / Unknown 01/06/2025 5:20 PM CDT 01/06/2025 5:23 PM CDT Narrative [facility] - 01/06/2025 5:53 PM CDT hs-cTnT (Elecsys Troponin T Gen 5) concentration (s) above the sex-specific 99th percentile (16 ng/L or greater for males or 11 ng/L or greater for females) are indicative of myocardial injury. If initial hs-cTnT <=100 ng/L at presentation, a 0h/2h ABSOLUTE (ng/L) delta change (rising or falling) of >=10 ng/L suggests a significant change, whereas a 0h/2h delta change <=3 ng/L suggests no significant change. If initial hs-cTnT >100 ng/L at presentation, a 0h/2h/ RELATIVE (percent, %) delta change of 20% is suggested to distinguish patients with acute vs. chronic myocardial injury. There are multiple etiologies that can cause hs-cTnT increases above the 99th percentile (myocardial injury) other than acute myocardial infarction. Clinical context and careful clinical evaluation are critical for diagnosis and risk-stratification. The diagnosis of acute myocardial infarction requires a rising and/or falling pattern in hs-cTnT concentrations with at least one value above the sex-specific 99th percentile PLUS at least one of the following clinical criteria: ischemic symptoms, new or presumed new significant ST-T wave changes or new LBBB, development of pathological Q waves, imaging evidence of new loss of viable myocardium or new regional wall motion abnormality, or identification of intracoronary atherothrombosis or an acute angiographic culprit on coronary angiography. In appropriate low-risk patients with a non-ischemic electrocardiogram without active chest pain with a symptom onset >3-hours without recurrence, a single initial hs-cTnT<6 ng/L identifies patient with a very low risk in emergency department patient population. us Cal COLEMAN CHEMISTRY Final Re sult [facility] [address] [place] [address] * (ABNORMAL) CBC WITH AUTO DIFFERENTIAL (01/06/2025 5:20 PM CDT) WHITE BLOOD COUNT 16.1(H) 4.5 - 11.0 thou/cu mm 01/06/2025 6:17 PM CDT [facility] RED BLOOD COUNT 3.58(L) 4.30 - 5.90 mil/cu mm 01/06/2025 6:17 PM CDT [facility] HEMOGLOBIN 12.2(L) 13.5 - 17.5 g/dL 01/06/2025 6:17 PM T [facility] HEMATOCRIT 35.0(L) 37.0 - 53.0 % 01/06/2025 6:17 PM T [facility] MCV 98 80 - 100 fL 01/06/2025 6:17 PM T [facility] MCH 34.1(H) 26.0 - 34.0 pg 01/06/2025 6:17 PM [facility] MCHC 34.9 32.0 - 36.0 g/dL 01/06/2025 6:17 PM T [facility] RDW 19.8(H) 11.5 - 15.5 % 01/06/2025 6:17 PM T [facility] PLATELET COUNT 423 140 - 440 thou/cu mm 01/06/2025 6:17 PM T [facility] MPV 10.3 6.5 - 11.0 fL 01/06/2025 6:17 PM [facility] Blood BLOOD SPECIMEN / Unknown Venipuncture / Unknown 01/06/2025 5:20 PM CDT 01/06/2025 5:23 PM CDT us Cal Danny COLEMAN HEMATOLOGY Final Re sult [facility] [address] [place] [address] * (ABNORMAL) RED CELL MORPHOLOGY (01/06/2025 5:20 PM CDT) TARGET CELLS Moderate 01/06/2025 6:17 PM CDT [facility] RBC COMMENT Present(A) RBC morphology appears normal, RBC morphology within normal limits for newborns. 01/06/2025 6:17 PM CDT [facility] Blood BLOOD SPECIMEN / Unknown Venipuncture / Unknown 01/06/2025 5:20 PM CDT 01/06/2025 5:23 PM CDT Cal COLEMAN HEMATOLOGY Final Re sult Performing Organization Address [facility]/ZIP Co de Phone Number [facility] [address] [place] [address] * (ABNORMAL) PLATELET ESTIMATE (01/06/2025 5:20 PM CDT) [facility] PLATELET ESTIMATE Increased (A) Adequate, No estimate 01/06/2025 6:17 PM CDT [facility] Blood BLOOD SPECIMEN / Unknown Venipuncture / Unknown 01/06/2025 5:20 PM CDT 01/06/2025 5:23 PM CDT Cal COLEMAN HEMATOLOGY Final Re sult Performing Organization Address [facility] Co de Phone Number [facility] [address] [place] [address] * (ABNORMAL) MANUAL DIFFERENTIAL (01/06/2025 5:20 PM CDT) [facility] % NEUTROPHILS 82.0 % 01/06/2025 6:17 PM CDT [facility] % LYMPHOCYTES 14.0 % 01/06/2025 6:17 PM T [facility] % MONOCYTES 3.0 % 01/06/2025 6:17 PM T [facility] % EOSINOPHILS 1.0 % 01/06/2025 6:17 PM T [facility] % BASOPHILS 0.0 % 01/06/2025 6:17 PM T [facility] NEUTROPHILS ABSOLUTE 13.2(H) 1.7 - 7.0 thou/cu mm 01/06/2025 6:17 PM T [facility] LYMPHOCYTES ABSOLUTE 2.3 0.9 - 2.9 thou/cu mm 01/06/2025 6:17 PM T [facility] MONOCYTES ABSOLUTE 0.5 <0.9 thou/cu mm 01/06/2025 6:17 PM T [facility] EOSINOPHILS ABSOLUTE 0.2 <0.5 thou/cu mm 01/06/2025 6:17 PM T [facility] BASOPHILS ABSOLUTE 0.0 <0.3 thou/cu mm 01/06/2025 6:17 PM T [facility] Blood BLOOD SPECIMEN / Unknown Venipuncture / Unknown 01/06/2025 5:20 PM CDT 01/06/2025 5:23 PM CDT us Calmac COLEMAN HEMATOLOGY Final Re sult [facility] [address] [place] [id number] * (ABNORMAL) BLOOD GAS,VENOUS (01/06/2025 5:20 PM CDT) PH, VENOUS 7.44(H) 7.32 - 7.43 01/06/2025 5:36 PM [facility] PCO2, VENOUS 34(L) 41 - 51 mmHg 01/06/2025 5:36 PM [facility] PO2, VENOUS 58(H) 35 - 40 mmHg 01/06/2025 5:36 PM [facility] HCO3,VENOUS 23 22 - 29 mmol/L 01/06/2025 5:36 PM [facility] BASE EXCESS, VENOUS, POCT -0.5 -2.0 - 3.0 01/06/2025 5:36 PM [facility] O2 SATURATION, VENOUS 91(H) 70 - 75 % 01/06/2025 5:36 PM [facility] PATIENT TEMPERATURE 37.0 Degrees C 01/06/2025 5:36 PM T [facility] Blood VENOUS BLOOD SPECIMEN / Unknown Venipuncture / Unknown 01/06/2025 5:20 PM CDT 01/06/2025 5:23 PM CDT Cal COLEMAN CHEMISTRY Final Re sult Performing Organization Address [facility]/ZIP Co de Phone Number [facility] [address] [place] [address] * ETHANOL SERUM OR PLASMA (01/06/2025 5:20 PM CDT) ETHANOL <0.010 <0.010 g/dL 01/06/2025 5:46 PM CDT [facility] Blood BLOOD SPECIMEN / Unknown Venipuncture / Unknown 01/06/2025 5:20 PM CDT 01/06/2025 5:23 PM CDT Cal COLEMAN CHEMISTRY Final Re sult Performing Organization Address [facility] de Phone Number [facility] [address] [place] [address] * (ABNORMAL) PROTIME-INR (01/06/2025 5:20 PM CDT) Only the most recent of2 resultswithin the time period is included. Pathologist [facility] INR 1.8(H) <1.3 01/06/2025 6:06 PM CDT [facility] PROTIME 20.7(H) 10.6 - 12.4 sec 01/06/2025 6:06 PM CDT [facility] Blood BLOOD SPECIMEN / Unknown Venipuncture / Unknown 01/06/2025 5:20 PM CDT 01/06/2025 5:23 PM CDT Narrative [facility] - 01/06/2025 6:06 PM CDT Therapeutic Range 2.0-3.0 for most anticoagulated patients 2.5-3.5 or 4.0 for high risk patients The INR is only used for patients on stable oral anticoagulant therapy. It makes no significant contribution to the diagnosis or treatment of patients whose Protime is prolonged for other reasons. INR results are increased when heparin levels exceed 1.0 U/mL, which corresponds to an aPTT >125 seconds if the patient is on UFH. Cal COLEMAN HEMATOLOGY Final Re sult Performing Organization Address [facility] Co de Phone Number [facility] [address] [place] [address] * (ABNORMAL) D-DIMER,QUANTITATIVE (01/06/2025 5:20 PM CDT) D-DIMER,QUANTI TATIVE 2.12(H) <=0.49 FEU mcg/mL 01/06/2025 6:06 PM CDT [facility] Blood BLOOD SPECIMEN / Unknown Venipuncture / Unknown 01/06/2025 5:20 PM CDT 01/06/2025 5:23 PM CDT [facility] - 01/06/2025 6:06 PM CDT The cut off value for exclusion of Deep Vein Thrombosis and / or Pulmonary Embolism is 0.50 FEU mcg/mL For patients greater than 50 years of age the upper limit is age dependent and was calculated with the formula: (PATIENT AGE x 0.01) FEU mcg/mL = Upper limit of normal range Cal COLEMAN HEMATOLOGY Final Re sult Performing Organization Address [facility] de Phone Number [facility] [address] [place] [address] * (ABNORMAL) PRO-BNP (01/06/2025 5:20 PM CDT) PRO-BNP 144(H) <125 pg/mL 01/06/2025 5:54 PM CDT [facility] Blood BLOOD SPECIMEN / Unknown Venipuncture / Unknown 01/06/2025 5:20 PM CDT 01/06/2025 5:23 PM CDT [facility] - 01/06/2025 5:54 PM CDT The following cut-points have been suggested for the use of proBNP for the diagnostic evaluation of heart failure (HF) in patient with acute dyspnea. Patients with eGFR >= 60 Diagnosis (rule in CHF) <50 Years Old 450 pg/mL 50 - 75 Years Old 900 pg/mL >75 Years Old 1800 pg/mL Exclusion (rule out CHF) Age Independent 300 pg/mL A cutoff of 1200 pg/mL for patients with an eGFR <60 yields a diagnostic sensitivity of 89% and specificity of 72% for acute congestive heart failure. Cal COLEMAN SEND OUTS Final Re sult Performing Organization Address [facility] de Phone Number [facility] [address] [place], [place] [phone] * LIPASE (01/06/2025 5:20 PM CDT) LIPASE 28.4 13.0 - 60.0 IU/L 01/06/2025 5:53 PM CDT [facility] Blood BLOOD SPECIMEN / Unknown Venipuncture / Unknown 01/06/2025 5:20 PM CDT 01/06/2025 5:23 PM CDT Cal COLEMAN CHEMISTRY Final Re sult Performing Organization Address [facility] Co de Phone Number [facility] [address] [place], [place] [phone] * (ABNORMAL) HEPATIC FUNCTION PANEL (01/06/2025 5:20 PM CDT) Only the most recent of2 resultswithin the time period is included. ALBUMIN 2.5(L) 4.0 - 4.9 g/dL 01/06/2025 5:54 PM CDT [facility] PROTEIN,TOTAL 6.5 6.0 - 8.0 g/dL 01/06/2025 5:54 PM CDT [facility] BILIRUBIN,TOTAL 14.1(H) 0.0 - 1.2 mg/dL 01/06/2025 5:54 PM CDT [facility] BILIRUBIN,DIRECT 10.1(H) 0.0 - 0.2 mg/dL 01/06/2025 5:54 PM CDT [facility] BILIRUBIN,INDIRE CT 4.0(H) 0.2 - 0.8 mg/dL 01/06/2025 5:54 PM CDT [facility] ALK PHOSPHATASE 184(H) 40 - 129 IU/L 01/06/2025 5:54 PM T [facility] ALT (SGPT) 153(H) 10 - 50 IU/L 01/06/2025 5:54 PM T [facility] AST (SGOT) 432(H) 10 - 50 IU/L 01/06/2025 5:54 PM T [facility] Blood BLOOD SPECIMEN / Unknown Venipuncture / Unknown 01/06/2025 5:20 PM CDT 01/06/2025 5:23 PM CDT us Calmac COLEMAN CHEMISTRY Final Re sult [facility] [address] [place] [address] * (ABNORMAL) BASIC METABOLIC PANEL (01/06/2025 5:20 PM CDT) SODIUM 133(L) 136 - 145 mmol/L 01/06/2025 5:54 PM CDT [facility] POTASSIUM 3.9 3.5 - 5.1 mmol/L 01/06/2025 5:54 PM [facility] CHLORIDE 102 98 - 107 mmol/L 01/06/2025 5:54 PM T [facility] CO2,TOTAL 21(L) 22 - 29 mmol/L 01/06/2025 5:54 PM T [facility] ANION GAP 10 5 - 18 01/06/2025 5:54 PM CDT [facility] GLUCOSE 91 70 - 99 mg/dL 01/06/2025 5:54 PM CDT [facility] CALCIUM 7.6(L) 8.8 - 10.4 mg/dL 01/06/2025 5:54 PM CDT [facility] Comment: Reference ranges for this test were updated on 06/06/2024 to reflect our healthy population more accurately. Reference range changes are not retroactively applied to results, but previous results using the same methodology can be interpreted in the context of the new reference range. BUN 6 6 - 20 mg/dL 01/06/2025 5:54 PM T [facility] CREATININE 0.57(L) 0.70 - 1.20 mg/dL 01/06/2025 5:54 PM T [facility] BUN/CREAT RATIO 11 10 - 20 5:54 PM T [facility] eGFR >90 >90 mL/min/1. 73m2 01/06/2025 5:54 PM T [facility] Comment:As of 2021, eG FR is calculated by the CKD-EPI creatinine equation without race adjustment. eGFR can be influenced by muscle mass, exercise, and diet. The reported eGFR is an estimation only and is only applicable if the renal function is stable. Blood BLOOD SPECIMEN / Unknown Venipuncture / Unknown 01/06/2025 5:20 PM CDT 01/06/2025 5:23 PM CDT us Cal COLEMAN CHEMISTRY Final Re sult [facility] [address] [place] [address] * EKG 12 LEAD (01/06/2025 4:44 PM CDT) Interpretation Sinus tachycardia Otherwise normal ECG When compared with ECG of 11-Oct-2024 11:04, No significant change was found BEYOND NOW Ventricular Rate 105 BPM BEYOND NOW Atrial Rate 105 BPM BEYOND NOW P-R Interval 146 ms BEYOND NOW QRS Duration 94 ms BEYOND NOW QT 356 ms BEYOND NOW QTc 470 ms BEYOND NOW P [place] 23 degrees BEYOND NOW R [place] 29 degrees BEYOND NOW T [place] 9 degrees BEYOND NOW 01/06/2025 4:44 PM CDT 01/06/2025 10:06 PM CDT us Calmac COLEMAN EKG ORD Final Re sult BEYOND NOW [place], [place] * (ABNORMAL) LIPID PANEL (12/27/2024 3:10 PM CDT) CHOLESTEROL, TOTAL TNP mg/dL [facility] Comment: TEST NOT PERFORMED Specimen is icteric. HDL CHOLESTEROL 7(L) > OR = 40 mg/dL [facility] TRIGLYCERIDES 468(H) <150 mg/dL [facility] Comment: If a non-fasting specimen was collected, consider repeat triglyceride testing on a fasting specimen if clinically indicated. Win et al. J. of Clin. Lipidol. 2015;9:129-169. LDL-CHOLESTEROL [facility] Comment: Result not calculated because one or more required values not available. Reference range: <100 Desirable range <100 mg/dL for primary prevention; <70 mg/dL for patients with CHD or diabetic patients with > or = 2 CHD risk factors. LDL-C is now calculated using the Hao-Rasmussen calculation, which is a validated novel method providing better accuracy than the Friedewald equation in the estimation of LDL-C. Hao SS et al. MADDY. 2013;310(19): 6576-6960 (http://education.[employer]/faq/QLZ323) CHOL/HDLC RATIO [facility] Comment: Result not calculated because one or more required values not available. NON HDL CHOLESTEROL [facility] Comment: Result not calculated because one or more required values not available. For patients with diabetes plus 1 major ASCVD risk factor, treating to a non-HDL-C goal of <100 mg/dL (LDL-C of <70 mg/dL) is considered a therapeutic option. Blood BLOOD SPECIMEN / Unknown 12/27/2024 3:10 PM CDT 12/27/2024 3:10 PM CDT Narrative [facility] - 01/01/2025 1:30 PM CDT FASTING:NO FASTING: NO us Vikas Oliver MD CHEMISTRY Final Result [facility] [address] [place] [address], [facility] [address] [place] [address] * ANTI HCV (11/25/2021 10:00 AM CDT) Pathologist [facility] HEPATITIS C ANTIBODY Non-React maritza Non-React maritza 11/26/2021 10:49 AM CDT [facility] Comment:Antibodies to HCV no t detected; does not exclude the possibility of exposure to HCV. Blood BLOOD SPECIMEN / Unknown Venipuncture / Unknown 11/25/2021 10:00 AM CDT 11/25/2021 10:03 AM CDT us Henny COLEMAN SEND OUTS Final Resu lt [facility] [address] [place] [address], from Last 3 Months or Most Recently Relevant to Health Maintenance Insurance [facility] Care Teams Web Knitter Relationship Specialty Start Date End Date Vikas Oliver MD [address] [place] [address] PCP - General Family Practice 12/27/24
[2025-01-15 10:47] VITALS: BP 112/74; PULSE 103; RESP 20; TEMP 36.4; O2SAT 95; BMI 42.0
[2025-01-15 11:22] LABS: Basophils Percent Auto 0.2 % (0.0-3.0); Eosinophils Percent Auto 0.5 % (0.0-7.0); Hematocrit 35.6 % (37.0-53.0); Hemoglobin* 12.1 gm/dL (13.5-17.5); Immature Granulocytes Pct Auto 4.6 %; Lactate* 1.4 mmol/L (0.5-1.9); Lymphocytes Percent Auto 6.8 % (20-44); Mean Corpuscular HGB Conc 34 gm/dL (32-36); Mean Corpuscular Hemoglobin 34 pg (26-34); Mean Corpuscular Volume 101 fL (80-100); Monocytes Percent Auto 7.3 % (0.0-11.0); Neutrophils Percent Auto 80.6 % (42.0-72.0); Platelet Count* 435 K/uL (140-440); RDW Coefficient of Variation % 19.7 % (11.5-15.5); Red Blood Count 3.53 m/uL (4.30-5.90); White Blood Count* 17.46 K/uL (4.50-11.00)
[2025-01-15 11:24] LABS: Slide Review Reflex No
--- NOTE | 2025-01-15 11:29 | ED.GENADULT ---
HPI - General Adult General Chief complaint: Chest Pain Stated complaint: up left side pain abdominal, blood on stool Time Seen by Provider: 01/15/25 10:54 Source: patient Mode of arrival: ambulatory Limitations: no limitations History of Present Illness HPI narrative: 34-year-old male presenting today with generalized not feeling well. Patient states that for the last 6 weeks he has had significant bloating, can not eat more than a handful of food at a time. He states that he has noticed a change in his skin color over the last 6 weeks, skin and eyes turning yellow. He states that he has diarrhea often times with blood spots in his stools. He denies vomiting but feels nauseated. Patient states that he was admitted at [facility] where ?I did not do anything for me, so I left?. He states that he also had an ER visit at [place] medial week or 2 ago and that they ?did not do anything for me either?. Patient complains of left upper quadrant abdominal pain that comes and goes but is becoming more constant. He complains of feeling short of breath over the last 6 weeks. States that he did drink approximately 8-10 drinks per day, 3 days per week. He was instructed to follow up with GI, has not done this yet- states that it is this Wednesday. Patient states that he has not had any alcoholic beverages for over a month. Per medical records from [place], patient has a history of fatty liver, alcoholic hepatitis seizures, hyperbilirubinemia, . It appears that the patient was admitted to [facility] on 12/28/2024 after being fall and jaundiced with elevated LFTs. At that time bilirubin was 15.9, elevated lactate. CT of the abdomen showed changes of the liver consistent with cirrhosis and suggestion of portal hypertension with mild ascites. Ultrasound of the gallbladder showed gallbladder wall thickening with sludge. Ultrasound of the liver shows signs consistent with cirrhosis and portal hypertension. Patient was admitted, had a negative workup for infectious etiology of hepatitis. Diagnostic paracentesis with clear fluid and few PMNs. Patient left AMA on 12/31, had not yet been evaluated by GI. Seen by primary care in 01/05 -thiamine and folate supplementation recommended, hepatology follow-up recommended. Patient was seen in the ER in [place] on 01/06 - with similar complaints that he presents with today. CT scan done on 01/06/2025 a showed cirrhotic liver morphology, mild gallbladder wall thickening, splenomegaly. Also showed diffuse medina colonic wall thickening, likely portal colopathy. Presence of gastroesophageal and splenic varices in small volume ascites. He was also found to have an elevated D-dimer in with his shortness of breath he had a chest CT PE study which did not show evidence of PE. Going through the patient's [place] records, it appears that the patient has had elevated LFTs going back to 2021, at which time they were in the 700-800 range. Got as high as an ALT of 1500 and AST of 966. They have been declining since. Related Data Home Medications ?Medication ?Instructions ?Recorded ?Confirmed No Known Home Medications 01/15/25 01/15/25 Allergies Allergy/AdvReac Type Severity Reaction Status Date / Time No Known Drug Allergies Allergy Verified 01/21/23 14:42 Review of Systems Status of ROS: Reports: 10 or more systems reviewed and unremarkable except as noted in History and below [facility] Social History Smoking Status: Never smoker Do you use any of these nicotine containing products: None How often do you have a drink containing alcohol: 2-3 times a week AUDIT-C Alcohol total score: 3 Non-prescribed substance use: denies use Exam Narrative: Exam Narrative: Well-nourished well-developed patient in no acute distress. Alert and oriented. Answers questions appropriately. Mood and affect are appropriate. Thoughts are goal oriented and rational. No tangential or magical thinking noted. Patient speaks in full sentences without needing to catch his breath. Clearly jaundiced. HEENT: Normocephalic atraumatic. Pupils are equally round reactive to light. Extraocular muscles are intact. Conjunctivae are moist with icterus. Slightly dry mucous membranes. Posterior pharynx is normal. Neck is soft without any lymphadenopathy or thyromegaly. No masses are appreciated. Cardiovascular: Heart is regular rate and rhythm S1 and S2 are present without any murmurs. Lungs: Clear to auscultation bilaterally no wheezes rhonchi or rales are appreciated. Patient takes deep breaths without any discomfort. Abdomen: Tense, distended. Normal bowel sounds. Nontender. Extremities: Bilateral lower extremities show 1+ pitting edema to the knees. Const: Vital Signs, click to edit/add: Vital Signs - 24 hr 01/15/25 10:47 01/15/25 11:55 01/15/25 14:04 Temperature 97.5 F L Pulse Rate 109 H Pulse Rate [Pulse Oximeter] 103 H 101 H Respiratory Rate 20 20 18 Blood Pressure 131/77 Blood Pressure [Ri ght Upper Arm] 112/74 149/74 H Pulse Oximetry 95 95 93 Oxygen Delivery Me thod Room Air Room Air Room Air Course Course ED Course: On 01/06/2025 patient had an ALT of 153 and AST of 432, total bilirubin was 14.1. Today, labs look much worse with an ALT of 301, AST of 807 and total bilirubin of 18.6. He does also have an elevated white cell count at 17.46, however it was 16,000 on the . CRP is elevated at 6.5, sodium low at 130. Normal renal function. INR elevated at 1.49. Low sodium at 1:30 a.m., normal potassium at 4.3. Slightly low calcium at 8.2. Alkaline phosphatase elevated at 187. Normal troponin. TSH minimally elevated at 4.93 Urine is aureliano colored with 3+ bilirubin. Urine drug screen is negative, negative salicylates acetaminophen and alcohol levels. Upon arrival IV was started and patient was given a L of normal saline. He remained hemodynamically stable while he was here. I did speak to Dr. Philippe GI at [facility] [place] [place], hospitalist who for in agreement that the patient should be transferred for fleeting management at a location that had GI services. It is a 4-8 hour beds away at this time, but patient will be transferred to [facility] at this time. Vital Signs Vital signs: Initial Vital Signs Temperature 97.5 F L 01/15/25 10:47 Temperature Source Temporal Artery Scan 01/15/25 10:47 Pulse Rate 103 H 01/15/25 10:47 Respiratory Rate 20 01/15/25 10:47 Blood Pressure 112/74 01/15/25 10:47 Blood Pressure Mean 86 01/15/25 10:47 Blood Pressure Position Sitting 01/15/25 10:47 Pulse Oximetry 95 01/15/25 10:47 Oxygen Delivery Method Room Air 01/15/25 10:47 Vital Signs Temperature 97.5 F L 01/15/25 10:47 Pulse Rate 103 H 01/15/25 10:47 Respiratory Rate 20 01/15/25 10:47 Blood Pressure 112/74 01/15/25 10:47 Pulse Oximetry 95 01/15/25 10:47 Oxygen Delivery Method Room Air 01/15/25 10:47 Temperature 97.5 F L 01/15/25 10:47 Pulse Rate 109 H 01/15/25 14:04 Respiratory Rate 18 01/15/25 14:04 Blood Pressure 131/77 01/15/25 14:04 Pulse Oximetry 93 01/15/25 14:04 Oxygen Delivery Method Room Air 01/15/25 14:04 Medications Administered Medications: Discontinued Medications Generic Name Dose Route Start Last Admin Trade Name Freq PRN Reason Stop Dose Admin Sodium Chloride 1,000 mls @ 1,000 mls/hr 01/15/25 12:30 01/15/25 14:01 0.9 % Sodium Chloride 1000 Ml IV 01/15/25 13:29 Infused .Q1H HEMANTH Infusion Medical Decision Making MDM Narrative Medical decision making narrative: 34-year-old male with liver failure, likely secondary to alcoholic cirrhosis. Patient will be transferred for further management. Medical Records Medical records reviewed: Yes I reviewed the patient's medical records Lab Data Lab results reviewed: Yes I reviewed the patient's lab results Labs: Lab Results 01/15/25 01/15/25 Range/Units 11:12 12:30 WBC 17.46 H (4.50-11.00) K/uL RBC 3.53 L (4.30-5.90) m/uL Hgb 12.1 L (13.5-17.5) gm/dL Hct 35.6 L (37.0-53.0) % MCV 101 H (80-100) fL MCH 34 (26-34) pg MCHC 34 (32-36) gm/dL RDW Coeff of Ted 19.7 H (11.5-15.5) % Plt Count 435 (140-440) K/uL Neut % (Auto) 80.6 H (42.0-72.0) % Lymph % (Auto) 6.8 L (20-44) % Piute % (Auto) 7.3 (0.0-11.0) % Eos % (Auto) 0.5 (0.0-7.0) % Baso % (Auto) 0.2 (0.0-3.0) % Neut # (Auto) 14.10 H (1.7-7.0) K/uL Lymph # (Auto) 1.20 (0.90-2.90) K/uL [place] # (Auto) 1.30 H (0.00-0.90) K/UL Eos # (Auto) 0.10 (0.00-0.50) K/uL Baso # (Auto) 0.00 (0.00-0.30) K/uL Abs Immat Gran (auto) 0.80 H (0.00-0.30) K/uL Imm/Tot Granulo (auto) 4.6 % ESR 72 H (2-15) mm/hr INR 1.49 H (0.91-1.10) Sodium 130 L (135-149) mmol/L Potassium 4.3 (3.6-5.1) mmol/L Chloride 101 (96-114) mmol/L Carbon Dioxide 23 (20-32) mmol/L Anion Gap 6 L (7-15) mEq/L BUN 8 (5-24) mg/dL Creatinine 0.6 (0.5-1.5) mg/dL Estimated Creat Clear 159.50 Estimated GFR 132 ml/min Glucose 97 (60-115) mg/dL Lactate 1.4 (0.5-1.9) mmol/L Calcium 8.2 L (8.4-10.6) mg/dL Total Bilirubin 18.6 H* (0.1-1.5) mg/dL Direct Bilirubin 16.3 H (0.0-0.5) mg/dL AST 807 H (12-35) U/L ALT 301 H (4-50) U/L Alkaline Phosphatase 187 H (40-150) U/L Ammonia < 8.7 L (13.1-30.0) umol/L Troponin I < 0.01 (0.01-0.04) ng/mL C-Reactive Protein 6.5 H (0.5-1.0) mg/dL NT-Pro-B Natriuret Pep 145 (See Note) pg/mL Total Protein 7.6 (6.0-8.3) g/dL Albumin 3.0 L (3.3-5.0) g/dL Lipase 98 (23-300) U/L Procalcitonin 0.43 (<0.50) ng/mL TSH 4.930 H (0.270-4.20) uIU/mL Urine Color Aureliano A (Yellow) Urine Appearance Clear (Clear) Urine pH 6.0 (5.0-8.5) Ur Specific [place] 1.015 (1.000-1.030) Urine Protein 1+ A (Negative) Urine Glucose (UA) Trace A (Negative) Urine Ketones Trace A (Negative) Urine Blood Negative (Negative) Urine Nitrite Negative (Negative) Urine Bilirubin 3+ A (Negative) Urine Urobilinogen 1.0 (0.2-1.0) Ur Leukocyte Esterase Negative (Negative) Urine RBC 0-2 (0-2) Urine WBC 0-2 (0-5) Ur Squamous Epith Cells None (None-Few) Urine Bacteria Few A (None) Salicylates < 1.0 L (1.0-10) mg/dL Urine Opiates Screen Negative (Negative) Ur Oxycodone Screen Negative (Negative) Urine Methadone Screen Negative (Negative) Acetaminophen < 10.0 (10.0-30.0) ug/mL Ur Barbiturates Screen Negative (Negative) U Tricyclic Antidepress Negative (Negative) Ur Phencyclidine Scrn Negative (Negative) Ur Amphetamines Screen Negative (Negative) U Methamphetamines Scrn Negative (Negative) U Benzodiazepines Scrn Negative (Negative) Urine Cocaine Screen Negative (Negative) U Marijuana (THC) Screen Negative (Negative) Ur Drug Screen Comment See Note Ethyl Alcohol < 0.01 (0.01-0.03) % Discharge Plan Discharge Clinical Impression: Liver failure Patient Disposition: steve Paz Condition: Stable Prescriptions: No Action No Known Home Medications Stand Alone Forms: MyHealth Info Instructions
[2025-01-15 11:35] LABS: Chloride* 101 mmol/L (96-114); Potassium* 4.3 mmol/L (3.6-5.1); Sodium* 130 mmol/L (135-149)
[2025-01-15 11:37] LABS: Blood Urea Nitrogen* 8 mg/dL (5-24); Creatinine* 0.6 mg/dL (0.5-1.5); Estimated Glomerular Filt Rate 132 ml/min
[2025-01-15 11:38] LABS: Alanine Aminotransferase* 301 U/L (4-50); Alkaline Phosphatase* 187 U/L (40-150); Anion Gap 6 mEq/L (7-15); Bilirubin Direct* 16.3 mg/dL (0.0-0.5); Calcium* 8.2 mg/dL (8.4-10.6); Carbon Dioxide* 23 mmol/L (20-32); Glucose* 97 mg/dL (60-115); INR 1.49 (0.91-1.10); Lipase* 98 U/L (23-300); Total Protein* 7.6 g/dL (6.0-8.3)
[2025-01-15 11:41] LABS: C Reactive Protein* 6.5 mg/dL (0.5-1.0)
[2025-01-15 11:45] LABS: Ammonia* < 8.7 umol/L (13.1-30.0)
[2025-01-15 11:50] LABS: Bilirubin Total* 18.6 mg/dL (0.1-1.5)
[2025-01-15 11:51] LABS: Acetaminophen* < 10.0 ug/mL (10.0-30.0); Aspartate Amino Transferase* 807 U/L (12-35)
[2025-01-15 11:55] VITALS: BP 149/74; PULSE 101; RESP 20; O2SAT 95
[2025-01-15 11:55] LABS: Procalcitonin* 0.43 ng/mL (<0.50)
[2025-01-15 11:59] LABS: NT Pro B Type NatriureticPept* 145 pg/mL (See Note); Troponin I* < 0.01 ng/mL (0.01-0.04)
[2025-01-15] MEDS: 0.9 % SODIUM CHLORIDE 1000 ml 1,000 ML IV (12:33)
[2025-01-15 12:39] LABS: Appearance Urine Clear (Clear); Bilirubin Urine 3+ (Negative); Blood Urine Negative (Negative); Color Urine Amber (Yellow); Glucose Urine Trace (Negative); Ketones Urine Trace (Negative); Leukocyte Esterase Urine Negative (Negative); Nitrite Urine Negative (Negative); Protein Urine 1+ (Negative); Specific Gravity Urine 1.015 (1.000-1.030)
[2025-01-15 12:48] LABS: Amphetamine Screen Urine Negative (Negative); Barbiturate Screen Urine Negative (Negative); Benzodiazepines Screen Urine Negative (Negative); Cannabinoid Screen Urine Negative (Negative); Cocaine Screen Urine Negative (Negative); Methadone Screen Urine Negative (Negative); Methamphetamines Screen Urine Negative (Negative); Opiate Screen Urine Negative (Negative); Oxycodone Screen Urine Negative (Negative); Phencyclidine Screen Urine Negative (Negative); Tricyclic Antidepressant Urine Negative (Negative)
[2025-01-15 12:59] LABS: Bacteria Urine Few; RBC Urine 0-2 (0-2); WBC Urine 0-2 (0-5)
[2025-01-15 13:00] LABS: Ethanol* < 0.01 % (0.01-0.03); Salicylate* < 1.0 mg/dL (1.0-10)
[2025-01-15 13:44] LABS: Erythrocyte SedimentationRate* 72 mm/hr (2-15)
[2025-01-15 14:04] VITALS: BP 131/77; PULSE 109; RESP 18; O2SAT 93
[2025-01-15 16:21] VITALS: BP 121/74; PULSE 95; RESP 16; O2SAT 95
[2025-01-15 18:56] VITALS: BP 116/65; PULSE 105; RESP 18; O2SAT 93
[2025-01-15 20:30] VITALS: BP 116/68; PULSE 105; RESP 22; TEMP 36.8; O2SAT 93
== END 2025-01-15 22:40 | disposition short-term general hospital (02) ==
PROVIDERS: Emergency Provider Family Medicine
DX: K72.00 Acute and subacute hepatic failure without coma (principal)
CPT/HCPCS: 36415; 80048; 80076; 80143; 80179; 80306; 81001; 82077; 82140; 83605; 83690; 83880; 84145; 84443; 84484; 85025; 85610; 85651; 86140; 87086; 99284; 99285; J7030

== ENCOUNTER 2025-01-15 22:28 | Outpatient (CLI) | payer OTHER, SELFPAY ==
--- OUTSIDE RECORDS SUMMARY | 2024-12-28 16:48 | XMS_ITS | Encounter Summary ---
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 escalate CIWA evaluation if deemed clinically necessary. # Liver cirrhosis, new, query 2/2 alcohol, MELD 25 # Small Ascites # Jaundice # Splenomegaly # Thrombocytosis # Hypoalbuminemia # Hyponatremia Repleted Phos POCUS to evaluate for amenable pocket for paracentesis Additional lab studies: Metabolic labs: A1c, lipid panel Viral hepatitis panel (hepatitis A, B, and C) Antinuclear antibody (EMANUEL) to assess for autoimmune hepatitis Smooth muscle antibody to assess for autoimmune hepatitis Gamma globulin to assess for autoimmune hepatitis Anti-mitochondrial antibody to assess for primary biliary cirrhosis Iron and total iron binding capacity to screen for hemochromatosis Ceruloplasmin to screen for Michael disease Alpha-1 antitrypsin to screen for deficiency Alpha-fetoprotein Hepatobiliary consult # Alcohol use, Binge drinking w/o complex withdrawal > Last drink 3 weeks prior, Ethanol <10 in ED CIWA protocol Thiamine 100 mg, multivitamin daily Care management, substance use consult # New seizure, unknown etiology > Patient has Neurology appointment in January VTE prophylaxis: Hep SC Code status: Full Surrogate Decision Maker: Lesly Living Situation Before Admission: Home Discharge Plan (equipment, therapy, and facility): Home Please page the [facility] ([facility]) service pager at [phone] with any questions. Kassi Pascual M.D., Ph.D. Cosigned by Tripp Ni M.D. at 12/29/2024 4:38 PM CDT Associated attestation - Tripp Ni M.D. - 12/29/2024 4:38 PM CDT I saw and evaluated the patient, participating in the wu portions of the service. I reviewed the resident/fellow???s note. I agree with the resident/fellow???s findings and plan. Patient is a 34-year-old male presenting to the ED with jaundiced skin, icterus in the setting of significant alcohol use with new onset seizures without known etiology. Noted to have elevated LFTs with imaging raising concern for cirrhosis. Noted to have a MELD score of 25. Has slight amount of ascites, splenomegaly, thrombocytosis. Lasting 3 weeks ago. Able to ambulate and respond without difficulty Seen by the gastroenterology team who advised the following: serologic work-up underway, including infections, autoimmune, ceruloplasmin and additional studies.We added a PEth and acetaminophen level (which was undetectable). We will continue to follow closely and provide further recommendations as results unfold. 2. We anticipate outpatient EGD and colonoscopy for imaging abnormalities (duodenal wall thickeningand question of fat stranding in the colon near hepatic flexure on CT in 09/2024) and to screen for varices, in addition to outpatient Hepatology follow-up. 3. Monitor closely for evidence of systemic infection. 4. Calorie counts. Continue thiamine and multivitamin with folate. 5. Continue to trend liver tests and INR with AM labs. 6. We have recommended complete abstinence from alcohol. Continue to offer resources for cessation if Lizet is interested. 7. Please obtain routine blood cultures. Tripp Ni M.D. * Juliane Vargas M.D. - 12/28/2024 10:46 PM CDT MEDICINE SENIOR SUPERVISORY ADMISSION NOTE SUBJECTIVE Lizet Bocanegra is a 34 y.o. male who presents with pruritis and jaundice. Medical comorbidities are notable for recent presumed acute acalculous cholecystitis (09/2024), elevated AST and ALT, hepatic steatosis, depression, and anxiety. Patient presented to his PCP on 12/27 with 2 weeks of pruritis and yellow skin and eyes. Labs returned 12/28 with Tbili 14.5, AST 248, and ALT 80, for which patient was directed to present to the ED. He was vitally stable. Labs were notable for mild anemia, thrombocytosis, leukocytosis, hyponatremia, hypochloremia, NAGMA, significant direct hyperbilirubinemia with mild to moderately elevated liver transaminases (AST > x2 ALT), and mildly elevated lactate. CT abdomen pelvis with contrast demonstrated liver cirrhosis with ascites and proximal colon congestion, gallbladder wall thickening w/ per icholecystic fluid favored to be reactive, and duodeanl wall thickening representing reactive duodenitis vs. less likely grooved pancreatitis. Gallbladder US redemonstrated the CT abdomen findings, additionally showing biliary sludge and a negative sonographic galan sign, suggesting secondary to liver disease. Liver US w/ dopplers showed reversal of flow in main, left, and right portal veins. Hewas given 1L NS and admitted for further management. Additional labs that resulted at time of admission: EtOH < 10, repeat lactate wnl, Mg 2.4, Phos 1.6. Patient endorses the above history. He was aware that liver markers were elevated in the past but was unsure the underlying cause. He has never seen a call center receptionist. He drinks at least eight 12oz beers approximately 2-3 days per week. He cannot quantify how long he has done this for as he willsometimes stop drinking for months to years at a time. He does not smoke tobacco. No other recreational drug use. No new medications. No new OTC supplements or vitamins. He has never had this issue in the past. OBJECTIVE PHYSICAL EXAM General: middle aged male in no acute distress Skin: jaundice. no palmar erythema. no spider angiomas. HEENT: conjunctival icterus present, pupils equal and round, EOMI, Heart: RRR, no murmurs Lungs: CTAB, breathing comfortably Abdomen: soft, obese, NT, BS+, no rebound or guarding, no fluid wave Extremities: warm and well perfused. no edema. Neuro: alert, fully oriented, conversant. speech fluent. spontaneously moves all extremities. DIAGNOSTICS I have reviewed the laboratory data, ekgs, and imaging reports since ED presentation, in addition to the following: - EBV PCR negative 12/01/2021 - CMV PCR negative 12/01/2021 - HbsAg nonreactive, HbcAby nonreactive 11/25/2021, HbsAby Quant 217 11/25/2021 - Hep C antibody nonreactive 11/25/2021 - Hep A IgG reactive, IgM nonreactive 11/27/2021 - HEV IgM negative 12/01/2021 - EMANUEL positive 1:1280 11/27/2021 - anti-smooth muscle leelee and anti-mitochondrial leelee negative 11/27/2021 - Ethanol 0.328 g/dL on 10/11/2024 ASSESSMENT / PLAN Lizet Bocanegra is a 34 y.o. male who is admitted with significant direct hyperbilirubinemia in the setting of newly found cirrhosis with portal hypertension. Patient has a prior history of elevated liver enzymes with an extensive hepatitis workup in 2021. It appears he was recommended a GI evaluation but unfortunately lost to follow-up. He now presents with cirrhosis with portal hypertension and a significant hyperbilirubinemia. His MELD-Na score is 27.We will obtain initial serum studies for cirrhosis evaluation and consult GI hepatobiliary. He did have small ascites on CT imaging, so we will perform bedside POCUS to determine if there is a fluid pocket present for a diagnostic paracentesis. MELD 3.0: 25 at 12/28/2024 5:17 PM MELD-Na: 27 at 12/28/2024 5:17 PM Calculated from: Serum Creatinine: 0.53 mg/dL (Using min of 1 mg/dL) at 12/28/2024 5:17 PM Serum Sodium: 127 mmol/L at 12/28/2024 5:17 PM Total Bilirubin: 15.9 mg/dL at 12/28/2024 5:17 PM Serum Albumin: 2.8 g/dL at 12/28/2024 5:17 PM INR(ratio): 1.4 at 12/28/2024 5:17 PM Age at listing (hypothetical): 34 years Sex: Male at 12/28/2024 5:17 PM # Liver cirrhosis with portal hypertension with ascites # Direct hyperbilirubinemia # Elevated AST, ALT, Alk Phos # Splenomegaly # Gallbladder wall thickening and pericholecystic fluid favored to be secondary to liver disease # Alcohol abuse, binge drinking # Obesity BMI > 40 # Hyponatremia # Hypochloremia # Hypophosphatemia # NAGMA # Anemia # Recent seizure PLAN Daily HFP, INR, CBC, BMP Obtain: hepatitis panel, EMANUEL, antimitochondrial antibody, gamma globulin, smooth muscle antibody, iron studies (TIBC, iron, ferritin), ceruloplasmin, [id number], alpha-fetoprotein, A1c, lipid panel POCUS to determine if amenable pocket for diagnostic paracentesis GI Hepatology consult Diphenhydramine prn for pruritis CIWA, thiamine, multivitamin, CM consult for substance use alcohol cessation Patient is not on any chronic home medications. Outpatient follow-up with Neurology as planned for recent seizure hx This is a senior resident supervisory note. Please see the music internship's note for further details. The patient will be discussed with the inside sales consultant in the morning. documented in this encounter Consult Notes * Ines Washington M.S.W., Remedios.S.W. - 12/30/2024 3:50 PM CDTAssociated Order(s): IP CONSULT TO CARE MANAGEMENT Psychosocial Assessment SUBJECTIVE ASSESSMENT INFORMATION Referral Data Referral Source: Provider/Service Referral Reason: Psychosocial assessment, Chemical Health assessment Previous Assessment: No Miniature Set Constructor Services Used: No Primary Language: Guatemalan Miniature Set Constructor Services Used: No Sexuality/Pronoun: Person(s) present during interview: patient Disclaimer: They were advised of the various topics that will be assessed during this evaluation. They consented to proceed. The information provided in the assessment is based on review of the medical record as well as the face to face interview. They were advised that the content of this interview will be shared with the health care team and documented in the medical record. They were advised that anyone with access to their patient portal will have access to this information. It was discussed that staff are mandated reporters and they reported understanding. HISTORY OF PRESENT ILLNESS The patient presents to [place] ED due to jaundice and itchiness all over his body for the past few weeks. He was admitted to a [facility] floor - Dom 3 D room 345 with an admitting diagnosis of Hyperbilirubinemia. SOCIAL HISTORY Early Growth and Development: The patient met social and developmental milestones as expected. Family of Origin: The patient is one in a sib-set of 5. Citizenship: Unknown Resident Status: [place] Marital Status: Family / Household: The patient resides in [place], [place] with his spouse and their 3 kids. Support System: spouse and family members Primary Caregiver: self Spirituality/Sabianism/Cultural Factors: Unknown History: No Highest Level of Education: associate's degree Employment: employed Psychosocial Risk Factors Impacting the Patient: none Maltreatment: none reported Trauma: none reported Current Legal Status: Legal History: none reported Social Drivers of Health with Concerns No concerns present Current Stressors Current Medical Condition Coping Skills/Strengths The patient has good coping skills OBJECTIVE FINANCES/INSURANCE Primary insurance: N/A Secondary insurance: N/A Financial concerns: No ADVANCE DIRECTIVES Advance Directives Status: None on file BASELINE FUNCTIONAL STATUS Baseline Activities of Daily Living Mobility: Independent Dressing: Independent Feeding: Independent Bathing: Independent Grooming: Independent Toileting: Independent Behavior: Appropriate, Pleasant, Cooperative, Calm Communication: Can write, Talks, Understands speaking, Understands Guatemalan Shopping: Independent Medication Management: Independent Housekeeping: Independent Meal Prep: Independent Assistive Devices: None BASELINE SERVICES/RESOURCES Primary care clinic and provider: ELSEWHERE, PCP/Dr. Vikas Oliver MD ([phone]) Services/Resources: None ANTICIPATED NEEDS Anticipated Needs Functional Status: None Assistive Devices: None Anticipated Modifications to the Patient's Home: None Transportation Needs: Independent to drive Does the patient need discharge transport arranged?: Yes Has discharge transport been arranged?: No Anticipated Discharge Destination: Home or Self Care MENTAL HEALTH Mental Health History: Patient reports no mental health history Mental Health Treatment History No history of Psychiatric Treatment noted Suicide Risk and Safety Risk Assessment: No past or current suicidal ideation or attempts. Suicidal: No Homicidal: No Mental Status: Orientation: Oriented to person, place and time Level of consciousness: Awake and alert Appearance: Age appearing Behavior observed: Calm and Interactive Memory: Good Cooperation: Cooperative Concentration: Good Mood: , Calm, and Irritable Affect: Within a normal range Speech: Coherent and Within normal limits for volume, rate and tone. Thought content: No abnormality noted Thought process: Logical and goal-directed Judgement: Good Insight: Good Review of Psychiatric Symptoms: Sleep/insomnia: no sleep concerns Energy: stable Appetite/weight: unchanged Anxiety symptoms: no symptoms of anxiety Depression symptoms: no symptoms Ivon/hypomania symptoms: no symptoms Psychotic symptoms: no symptoms Trauma response symptoms: no symptoms Disruptive, impulse-control, and conduct symptoms: no symptoms Personality symptoms: no symptoms Neurocognitive symptoms: no symptoms Neurodevelopmental symptoms: no symptoms Feeding and eating symptoms: no concerns Impact of life/functioning: None Duration/severity: 2 weeks SUBSTANCE USE Current: Patient reports drinking 1/2 case of beer sporadically. He stated that he can go weeks andmonths without drinking. He denies use of any illegal drugs. He stated he has never been in troublewith Law Enforcement due to his drinking, never received a DWI/DUI, has never missed work due to his alcohol consumption. He reported that neither his or his immediate family have ever talked towam about any concerns over his drinking. Substance Use Extended History Alcohol: Alcohol current or past use: Yes Type: Beer Route of administration: oral Age of first use: Early 20s History, pattern, and progression of use: Patient reports that he drinks sporadically, he can go weeks or months without drinking. Cannabis: Cannabis current or past use: No Hallucinogens: LSD current or past use: No Mushrooms current or past use: No Ketamine current or past use: No Phencyclidine current or past use: No Other Hallucinogen current or past use: No Inhalants: Current or past use: No Nicotine: Current or past use: No Opioids: Heroin current or past use: No Methadone current or past use: No Suboxone current or past use: No Other opioid current or past use: No Sedative/Hypnotics/Anxiolytics: Sleeping pills current or past use: No Benzodiazepines current or past use: No Stimulants: Cocaine current or past use: No Methamphetamine current or past use: No Ecstasy current or past use: No Over the counter medications: Other: ASSESSMENT / PLAN DISCUSSION Irrigation System Installer met with the patient in his room on [address] to address the care management consult for substance use and to complete a psychosocial assessment. The patient was lying awake, watching TV. Irrigation System Installer introduced self and explained the role of an inpatient hospital addiction social worker and purpose of the visit. The patient was agreeable to meet. Lizet Bocanegra ([birth year]) is a 34 year old male who was born and raised in the [place], [place] area. He is one in a sib-set of 5. His parents are still living. He has regular contact with family members. The patient completed high school and went on and earned an AA degree. The patient is and has 3 children. The patient and family reside in a one level home in [place], [place]. There are 2 steps, with railing, to get into the home. There is a step-over tub with nograb bars installed. The patient operates a motor vehicle. He did not serve in the . He is fully independent in all ADL's and IDL's. The patient denies any past or current mental health concerns, issues, or diagnosis. He has never been hospitalized for psychiatric reasons. The patient denies the use of any illegal drugs. He sporadically drinks 1/2 case of beer. He statedhe can go weeks to months without drinking. He does not feel his drinking is an issue and declined an Chemical Dependency Resources. He denies any Law Enforcement contact due to his drinking. He has never received any DWI/DUI's. He stated that neither his or his immediate family have voiced concerns about his alcohol use. The patient is planning to discharge home self-care. Family will provide transportation at time of discharge. IMPRESSION The patient was awake, alert and oriented x 3. He was pleasant but guarded. He declined any information around Chemical Dependency information or resources. INTERVENTIONS -Provided education regarding role of social work and set expectations surrounding discharge planning. -Provided supportive, strengths-based counseling related to hospitalization -Provided counseling utilizing empathic and reflective listening, normalization, problem solving and motivational interviewing techniques -Assessed needs, identified risk and protective factors PLAN - The patient will discharge home self-care. - The patient's family will provide transportation. - Social Work will continue to follow. For any new discharge planning needs. Anticipated barriers to the transition of care/plan: None Karissa Martin, Toby.[email or web address] 12/30/2024 * Camilla Beth M.D. - 12/29/2024 9:19 AM CDT GASTROENTEROLOGY & HEPATOBILIARY CONSULT Date/Time: 12/29/2024 9:20 AM CDT Patient Name: Lizet Bocanegra : 1990 CONSULT Evaluation of: Hyperbilirubinemia Referring Provider: Tripp Ni M.D. ASSESSMENT AND PLAN Mr. Bocanegra is a 34-year-old male admitted in the setting of jaundice with history of probable alcohol use disorder, obesity (BMI 40), and anxiety/depression. The chronicity of the jaundice is somewhatunclear. He has a history of abnormal liver tests, predominantly hepatocellular pattern, dating back to 2021. However, it is not clear that he was ever counseled that his abnormal liver tests might be related to alcohol. Reported last drink 3 weeks ago. Imaging shows features of advanced fibrosis if not cirrhosis in the setting of portal hypertension and recanalized umbilical vein. Previous evaluation has shown a positive EMANUEL, otherwise unrevealing serologic workup which was limited. Imaging onthis admission shows no evidence of vascular thrombotic complications such as Budd- Chiari or biliary obstruction. Trace ascites is noted; not enough for paracentesis. Lizet is relatively asymptomatic,notably without abdominal pain, fever, viral prodrome type symptoms. There is no encephalopathy or asterixis. INR is 1.4. Notably, Mr. Bocanegra also had exposure to amoxicillin-clavulanate in September. However, he reports he only took 1 tablet. Denies herbal supplements, anabolic steroids. He has not previously seen a Actuarial Consultant. This is a supervisory note for medical student doctor, Charmaine Rhodes. Please see her note for fullHPI and impressions. # Hepatitis with likely underlying advanced fibrosis/cirrhosis, evaluation in process (concern for alcohol-associated hepatitis), MELD 3.0 is 25 # Obesity (BMI 40) # Alcohol use disorder # Anxiety and depression # Hypophosphatemia RECOMMENDATIONS 1. Agree with serologic work-up underway, including infections, autoimmune, ceruloplasmin and additional studies. We added a PEth and acetaminophen level (which was undetectable). We will continue tofollow closely and provide further recommendations as results unfold. 2. We anticipate outpatient EGD and colonoscopy for imaging abnormalities (duodenal wall thickeningand question of fat stranding in the colon near hepatic flexure on CT in 09/2024) and to screen for varices, in addition to outpatient Hepatology follow-up. 3. Monitor closely for evidence of systemic infection. 4. Calorie counts. Continue thiamine and multivitamin with folate. 5. Continue to trend liver tests and INR with AM labs. 6. We have recommended complete abstinence from alcohol. Continue to offer resources for cessation if Lizet is interested. 7. Please obtain routine blood cultures. This patient was staffed with Dr. Errol Mcqueen, with the recommendations discussed with the primary team. Thank you for involving us in the care of this patient. We will continue to follow along.Please page the GI Hepatobiliary consult pager at [phone] with any questions or concerns. Cosigned by Errol Mcqueen M.D., M.P.H. at 12/29/2024 3:36 PM CDT Associated attestation - Errol Mcqueen M.D., M.P.H. - 12/29/2024 3:36 PM CDT I saw and evaluated the patient, participating in the wu portions of the service. I reviewed the resident/fellow???s note. I agree with the resident/fellow???s findings and plan. * Charmaine Rhodes - 12/29/2024 8:33 AM CDTAssociated Order(s): IP CONSULT TO HEPATOLOGY GENERAL GASTROENTEROLOGY CONSULT NOTE SUBJECTIVE Lizet Bocanegra [id number] DATE OF CONSULTATION: 12/29/2024 REQUESTING SERVICE: [facility] ([facility]) CHIEF COMPLAINT/REASON FOR VISIT We are seeing Lizet Bocanegra at the request of [facility] ([facility]) for the evaluation of new cirrhosis. HISTORY OF PRESENT ILLNESS Mr. Bocanegra is a 34 y.o. male with a history of fatty liver with LFTs, MDD, DANNY, and significant alcohol use without complex withdrawal, and seizure with no known etiology, who presented with new jaundice and pruritis. He first presented to his PCP on 12/27/24 for evaluation of yellow eyes and diffusely itchy that hadstarted one week prior. He was found to have elevated liver enzymes and was encouraged to present to the ED for further evaluation. He has a history of elevated liver enzymes first observed in October 2021 with ALT and AST peaking at 1,499 and 966 respectively. These decreased to to the 200- 300s 3 months later. ALP was normal at this time. Workup was negative for infectious etiology at the time. EMANUEL was positive but anti-smooth and anti- mitochondrial antibodies were negative. He has never previously been seen by a anesthesiology fellow. Liver enzymes were not checked again until this year when they were elevated with AST in the 200s, ALT 157 and normal ALP in both September and September. Today his AST is 300, ALT 93 and ALP is newly elevated at 196. Bilirubin is also elevated at 14.9. Lizet is not experiencing fevers/chills, nausea/vomiting, abdominal pain, change in appetite, change in abdominal girth or impaired thinking. He reports drinking 8-10 beers 2-3 times per week. When he binge drinks like this multiple days in a row, he has withdrawal symptoms of tremors. Per chart review, he has previously been to detox facilities on two separate occasions. He reports he last drank alcohol 3-4 weeks ago. There has been imaging evidence of hepatic steatosis on dating back to 2020. More recently, in September and September of this year Lizet presented to an outside ED with RUQ pain. CT in September showed colonic wall thickening and in September there was evidence of pericholecystic fluid, which was suspected to be acute cholecystitis. He was prescribed amoxicillin-clavulanate for this, but only took one tablet. CT AP from the current admission shows suspected development of cirrhosis with evidence of portal hypertension, persistent colonic thickening and new duodenal wall thickening, and persistent pericholecystic fluid, likely reactive due to hepatic dysfunction. There was no evidence of cholelithiasis and gallbladder US did not show biliary ductal dilation. OBJECTIVE Vitals: 12/29/24 0219 BP: 127/62 Pulse: 103 Resp: 16 Temp: 36.8 ??C SpO2: 95% PHYSICAL EXAMINATION General: well-appearing, lying in bed HEENT: Normocephalic, atraumatic, icteric sclera Neuro: alert and oriented , no asterixis Edema: no lower extremity edema Lungs: breathing comfortably on room air Abdomen: soft, non-distended, non-tender to deep palpation, hepatomegaly Skin: jaundiced, no palmar edema, no spider angiomas DIAGNOSTIC WORKUP: Hgb 12.3, platelets 396, WBC 12 Na 129, BUN 6, phos 1.7, albumin 2.7 Tbili 14.9 , ALT 93, AST 300, ALP 196 Ferritin 417, ceruloplasmin elevated INR 1.4 US Liver 12/28/24 1. Echogenic and coarsened liver parenchyma consistent with steatosis and chronic parenchymal disease. No focal hepatic observations. 2. Reversal of flow in the right, left and main portal veins which can be seen in the setting of portal hypertension. 3. Normal antegrade flow in the main hepatic artery and hepatic veins US Gallbladder 12/28/24 1. No biliary ductal dilatation. 2. Appearance of the gallbladder is within normal limits given known liver parenchymal disease/cirrhosis. CT AP 12/28/24 1. Heterogenous appearance of the liver parenchyma suspicious for interval development of cirrhosisespecially considering additional findings suggestive of portal hypertension including mild ascitesand congestion of the proximal colon. 2. Gallbladder wall measures 3 mm with pericholecystic fluid, favor reactive due to hepatic dysfunction. No cholelithiasis. 3. Duodenal wall thickening may represent reactive duodenitis versus less likely grooved pancreatitis. MELD 3.0: 25 at 12/28/2024 5:17 PM MELD-Na: 27 at 12/28/2024 5:17 PM Calculated from: Serum Creatinine: 0.53 mg/dL (Using min of 1 mg/dL) at 12/28/2024 5:17 PM Serum Sodium: 127 mmol/L at 12/28/2024 5:17 PM Total Bilirubin: 15.9 mg/dL at 12/28/2024 5:17 PM Serum Albumin: 2.8 g/dL at 12/28/2024 5:17 PM INR(ratio): 1.4 at 12/28/2024 5:17 PM Age at listing (hypothetical): 34 years Sex: Male at 12/28/2024 5:17 PM ASSESSMENT / PLAN # Hepatitis with likely underlying advanced fibrosis/cirrhosis, MELD 3.0 is 25 # Intrahepatic cholestasis # Trace ascites # Thrombocytosis # Hypoalbuminemia # Anxiety and depression # Alcohol use disorder Mr. Bocanegra is a 34 y.o. male with a history of MASLD, MDD, DANNY, and significant alcohol use who is admitted for management of hyperbilirubinemia, hyponatremia and hepatitis and we have been consulted for evaluation and management of possible cirrhosis. Lizet's laboratory and imaging findings are suggestive of hepatitis with likely underlying advanced fibrosis. CT findings of portal hypertension with recanalized umbilical vein and trace ascites suggest possible cirrhosis. This could be alcohol-related in the context of significant alcohol use, CAGE(BMI > 40), Michael's disease or due to underlying auto-immune liver disease. Notably, EMANUEL in 2021 was positive, with an otherwise unrevealing serologic workup. We agree with the primary team's decision to repeat this workup. With an elevated ceruloplasmin, Michael's disease is unlikely. His jaundice and newly elevated liver enzymes suggest an acute on chronic process. Infectious etiology is less likely, with a negative viral hepatitis panel. With AST:ALT > 2, there is concern foralcohol-related hepatitis. Elevated alkaline phosphatase with non-dilated bile ducts also suggests intrahepatic cholestasis, which could also be due to alcohol vs DILI or autoimmune hepatitis. Notably, although Lizet was prescribed amoxicillin-clavulanate in September, he only took one tablet so this isnot likely the culprit. He denies anabolic steroid use or herbal supplements. There is also concern for malnutrition given his low phosphorous, total protein, albumin and BUN. We recommend calorie counts and continuing thymine. Lastly, we recommend outpatient EGD to assess for esophageal varices with biopsies of duodenal wallthickening as seen on CT AP, as well as outpatient colonoscopy with biopsies due to CT evidence of persistent colonic thickening. RECOMMENDATIONS: - daily hepatic panel and INR - monitor for evidence of infection - routine blood cultures - paracentesis, if pocket on POCUS - follow auto-immune serologies - follow PEth - calorie counts - continue thymine, multivitamin with folate and B12 - outpatient EGD/colonoscopy and hepatology follow-up This patient was staffed with Dr. Mcqueen, with the recommendations discussed with the primary team. Thank you for involving us in the care of this patient. We will continue to follow along. Pleasepage the GI Hepatobiliary consult pager at [phone] with any questions or concerns. -- Charmaine Rhodes Visiting Medical Student Cosigned by Errol Mcqueen M.D., M.P.H. at 12/29/2024 3:38 PM CDT Associated attestation - Errol Mcqueen M.D., M.P.H. - 12/29/2024 3:38 PM CDT I saw the patient with the medical student. I was present for or re-performed the History of Present Illness. I saw and evaluated the patient, participating in the wu portions of the service and didmedical decision making. I have reviewed the above documentation and agree or amended. documented in this encounter Nursing Notes * Erika Elizalde R.N. - 12/30/2024 4:51 AM CDT Shift Goals: To have stable vitals and remain free from falls End of Shift Summary: [id number]. Pt had a temp of 38C but was asymptomatic. CIWA scored between 0-1overnight. Pt independent in room. He reported having multiple loose stools. Problem: PAIN - ADULT Goal: PT VERBALIZES/DEMONSTRATES ADEQUATE COMFORT LEVEL OR BASELINE Outcome: Progressing Problem: KNOWLEDGE DEFICIT Goal: Patient/family/caregiver demonstrates understanding of disease process, treatment plan, medications, and discharge instructions Outcome: Progressing Problem: SKIN/TISSUE INTEGRITY Goal: Skin/Tissue integrity maintained or improved Outcome: Progressing Problem: SAFETY ADULT Goal: Maintain a safe environment Outcome: Progressing documented in this encounter ED Notes * Jeanine Thompson P.A.-C., M.S. - 12/28/2024 10:38 PM CDT SUBJECTIVE CHIEF COMPLAINT/REASON FOR VISIT Jaundice HISTORY OF PRESENT ILLNESS History provided by: Patient and medical records Lizet Bocanegra is a 34 y.o. male with no significant past medical history who presents to the EmergencyDepartment upon referral from primary care with jaundice, pulse general pruritus that has been significant and whole-body for the past 2 weeks. Patient has had elevated liver enzymes since 2021 and reports drinking 8-10 beers 2-3 times per week. He states no recent change in this pattern. No recentmedication changes or recreational drug use. Patient denies fevers, chills, abdominal pain, nausea vomiting. He has had some looser stools but denies melena, hematochezia or bright red blood per rectum. He denies chest pain or shortness of breath. Denies urinary symptoms. REVIEW OF SYSTEMS OBJECTIVE Initial Vitals [12/28/24 1654] Temperature 36.6 ??C Pulse Rate 102 Heart Rate Resp Rate 20 Blood Pressure 126/68 SpO2 96 % Pain Score 0 - No pain PHYSICAL EXAMINATION Constitutional: Nursing note and vitals reviewed. HENT: Head: Normocephalic and atraumatic. Nose: Nose normal. Mouth/Throat: Oropharynx is clear and moist. Mucous membranes are moist. Eyes: Conjunctivae and EOM are normal. Pupils are equal, round, and reactive to light. Periorbital area normal appearing.Scleral icterus present. Neck: Neck supple. Cardiovascular: Regular rhythm and normal heart sounds. Pulmonary/Chest: Effort normal and breath sounds normal. Abdominal: Soft. Bowel sounds are normal. There is no abdominal tenderness. Musculoskeletal: General: No tenderness or edema. Normal range of motion. Cervical back: Normal range of motion and neck supple. Neurological: Alert and oriented to person, place, and time. Skin: Skin is warm, dry, intact and normal color. There is jaundice. Psychiatric: Behavior is normal. ASSESSMENT/PLAN Lizet Bocanegra is a 34 y.o. male with no significant past medical history who presents to the EmergencyDepartment upon referral from primary care with jaundice, pulse general pruritus that has been significant and whole-body for the past 2 weeks. Patient has had elevated liver enzymes since 2021 and reports drinking 8-10 beers 2-3 times per week. He states no recent change in this pattern. No recentmedication changes or recreational drug use. Patient denies fevers, chills, abdominal pain, nausea vomiting. He has had some looser stools but denies melena, hematochezia or bright red blood per rectum. He denies chest pain or shortness of breath. Denies urinary symptoms. Patient presents to the Emergency Department with 2 week history of jaundice and pruritus. He was sent from primary care with worsening LFTs and hyperbilirubinemia. Labs obtained today shows significant hepatitis and hyperbilirubinemia. He has had hyponatremia this is stable with a sodium of 127. Creatinine normal at 0.53. Patient does not have abdominal pain on exam. Plan is for CT abdomen and pelvis as well as ultrasounds and right upper quadrant with Doppler as ordered through intake. Disposition dependent on clinical course. ED Course as of 01/05/25 1047 Amy December 28, [id number] Bilirubin, Total, S(!): 15.9 Previous 1.4 2009 MELD 21 2044 Leukocytes(!): 12.5 Leukocytosis with left shift 2044 Hemoglobin(!): 13.1 Previous 15.3, [address] Abdomen Pelvis with IV Contrast 1. Heterogenous appearance of the liver parenchyma suspicious for interval development of cirrhosisespecially considering additional findings suggestive of portal hypertension including mild ascitesand congestion of the proximal colon. 2. Gallbladder wall measures 3 mm with pericholecystic fluid, favor reactive due to hepatic dysfunction. No cholelithiasis. 3. Duodenal wall thickening may represent reactive duodenitis versus less likely grooved pancreatitis. 2205 Spoke with general surgery who felt given patient has no right upper quadrant pain that this is not consistent with cholecystitis. Will admit with elevated bilirubin and a MELD score of 21 2245 Care assumed by oncoming team at shift change. General surgery will discussed patient with their staff to determine if formal consult is required. Final Diagnoses: as of 01/05/25 1047 Hyperbilirubinemia Jaundice Hyponatremia Jeanine Thompson P.A.-C., M.S. 01/05/25 1047 * Regi Mcadams APRN, C.N.P., D.N.P., M.S.N. - 12/28/2024 10:31 PM CDT Care of patient transferred to ia by [place] Thompson. Disposition pending Facilitate admission. VITAL SIGNS BP 129/64 Pulse 102 Temp 36.6 ??C (Oral) Resp 20 Wt 112 kg SpO2 94% ED Course as of 12/28/24 2232 Amy December 28, [id number] Potassium, P: 3.8 2230 Sodium, P(!): 127 1 Creatinine(!): 0.53 2231 Glucose, P: 108 2230 Hemoglobin(!): 13.1 2230 Platelet Count(!): 412 1 Leukocytes(!): 12.5 1 Lactate(!): 2.6 2230 INR: 1.4 2230 Lipase, S: 44 1 Bilirubin, Total, S(!): 15.9 2231 Aspartate Aminotransferase (AST), S(!): 300 2231 Alanine Aminotransferase (ALT), S(!): 98 223 US Liver with Liver Doppler Result in progress This result has not been signed. Information might be incomplete. Narrative & Impression EXAM: US LIVER WITH LIVER DOPPLER Exam performed with color and spectral Doppler analysis. COMPARISON: CT abdomen pelvis 12/28/2024 FINDINGS: Liver: Coarse echotexture consistent with chronic parenchymal disease. Diffuse hepatic steatosis. Doppler: Hepatic veins are patent with antegrade flow. The main hepatic artery is patent with antegrade flow. Reversal of flow in the left portal vein, main portal vein, and right portal vein. Intrahepatic ducts: Not dilated. Common duct: Not dilated. Other: Trace ascites. IMPRESSION: 1. Coarse hepatic echotexture consistent with chronic parenchymal disease. 2. Reversal of flow in the left portal, main portal, and right portal veins. 3. Normal antegrade flow in the main hepatic artery and hepatic veins. This result has not been signed. Information might be incomplete. 223 US Gallbladder and or Biliary Ducts Result in progress This result has not been signed. Information might be incomplete. Narrative & Impression EXAM: US GALLBLADDER AND OR BILIARY DUCTS COMPARISON: CT abdomen pelvis 12/28/2024 FINDINGS: Gallbladder: Gallbladder wall thickening to approximately 4 mm with biliary sludge. Small volume ascites versus pericholecystic fluid. Negative sonographic Galan sign. Intrahepatic ducts: Not dilated. Common duct: Not dilated. Aorta: Normal caliber. IMPRESSION: Gallbladder wall thickening to approximately 4 mm with biliary sludge to pericholecystic fluid versus small volume ascites. In the setting of a negative sonographic Galan sign, these findings could be related to chronic liver disease and are indeterminate for acute cholecystitis. Can consider follow-up HIDA scan as clinically indicated. This result has not been signed. Information might be incomplete. 2232 CT Abdomen Pelvis with IV Contrast Narrative & Impression EXAM: CT ABDOMEN PELVIS WITH IV CONTRAST COMPARISON: CT 02/10/2022 FINDINGS: Heterogenous appearance of the liver parenchyma. No suspicious hepatic lesions. Small volume ascites. New splenomegaly. New prominent vascular collaterals throughout the abdomen including recannulization of the periumbilical vein. Mild gallbladder wall thickening measuring 3 mm with pericholecystic fluid, favor reactive due to hepatic dysfunction. Nocholelithiasis. No hydronephrosis. Long segment (20.0 cm) duodenal wall thickening. Periduodenal stranding. Long segment cecal and ascending colonic wall thickening and pericolonic stranding. Normal-appearing terminal ileum. No obstruction. Scattered mesenteric stranding. No abdominopelvic organized fluid collection. No adenopathy. No suspicious osseous lesions. Lung bases are clear. IMPRESSION: 1. Heterogenous appearance of the liver parenchyma suspicious for interval development of cirrhosisespecially considering additional findings suggestive of portal hypertension including mild ascitesand congestion of the proximal colon. 2. Gallbladder wall measures 3 mm with pericholecystic fluid, favor reactive due to hepatic dysfunction. No cholelithiasis. 3. Duodenal wall thickening may represent reactive duodenitis versus less likely grooved pancreatitis. Final Diagnoses: as of 12/28/242231 Hyperbilirubinemia Jaundice Hyponatremia Regi Mcadams APRN, C.N.P., D.N.P., M.S.N. 12/29/24 0745 * Judy Perez R.N. - 12/28/2024 8:05 PM CDT Assumed care from Nancy BOSTON. Upon greeting patient he is A/O x 4 and denies pain. VSS. Awaiting CT results. Judy Perez R.N. 12/28/242005 * Evette Vaughan R.N. - 12/28/2024 4:50 PM CDT Presents to ED complaining of jaundice and itchiness all over his body for the past two weeks. No GI symptoms. Has had elevated LFTs since 2021. Drinks 8-10 beers 2-3 days/week. No other complaints. VSS. Evette Vaughan R.N. 12/28/24 1654 documented in this encounter Miscellaneous Notes * Hospital Course - Andrew Morales M.D. - 12/29/2024 5:04 PM CDT Mr. Lizet Bocanegra is a 34 y.o. male who presents with yellow skin and itchiness with history of significant alcohol use without complex withdrawal, new onset seizure without known etiology, Fatty liver with elevated LFTs, MDD, and DANNY. Pre-hospital course Patient originally presented to his primary care physician on 12/27/2024 for evaluation of yellow eyes and itchy skin x2 weeks. He was found to have elevated liver enzyme labs. The patient had elevated LFTs going back to 2021 at which time patient had ALT and AST in the 700-800s. Increased to around 1500 ALT at 966 for AST, slight decline into 2023 with ALT AST 159, 260 respectively. Most recent checks ALT 157 AST 227 09/2024. Bilirubin normal at that time. Previous workup for etiology of cirrhosis was negative for infectious etiology. He drinks approximately 8-12 oz beers 2-3 times per week. His withdrawal symptoms include tremors for 1-2 days. His last drink was 3 weeks ago. He has no history of complex withdrawals. ED Course In the ED, he was afebrile and vitally stable. Labs were remarkable for thrombocytosis (412), leukocytosis (12.5), INR 1.4, PT 15.7, hyponatremia (127), hyperbilirubinemia (15.9), direct (13.7) ALT 98, AST 300, alk-phos 213, lactate 2.6 which normalized with fluids. CT abdomen/pelvis with IV contrast showed heterogeneous appearance of the liver parenchyma suspicious for development of cirrhosis along with imaging consistent with portal hypertension including mild ascites in congestion of proximal colon. No cholelithiasis. New splenomegaly compared to 2021. Ultrasound gallbladder/biliary ductsshowed gallbladder wall thickening with biliary sludge, without Galan's sign. US Liver with liver d oppler, coarse hepatic echotexture consistent with chronic parenchymal disease and reversal of flowin the left portal/main portal/right portal veins. He received 1L LR and repeat lactate showed returned to normal. Hospital 1 course On the floor, patient remained overall stable. Workup for causes of underlying liver disease revealed negative infectious hepatitis serologies, slightly elevated GGT, slightly elevated ferritin (417), slightly elevated A1AT. Total IgG also slightly elevated (1780). AMA negative. Patient underwent diagnostic paracentesis on 12/29, which demonstrated clear fluid with few PMNs. Hedid fever briefly overnight 12/29-12/30 but had no pulmonary, abdominal, or urinary symptoms, and given his overall good clinical status, this was unconcerning for infection. Aminotransferases remained approximately stable throughout his stay, with slight increase on 12/30. Morning of 12/31/2024, patient stated that he wanted to leave. He understood that the medical workup had not yet completed. GI evaluation for steroids it was also not yet completed at the time of discharge, patient declined waiting for evaluation. The primary team spoke with the patient at length about the severity of his diagnosis, including the risk of liver decompensation, critical illness, and , as well as the need for appropriate treatment. The patient was accepting of these risks and hoped to seek second opinion elsewhere. He was not able to identify a second opinion provider or healthcare resource. He was not able to identify the name of a primary care provider. We expressed that we will be setting up follow up with GI for him and that he is welcome to attend these appointments if interested. Alpha 1 antitrypsin phenotype and PEth were pending at discharge. Disposition The patient was discharged to home on 12/31/2024 in stable condition. PCP Follow-Up: PCP follow up at [facility] Medications Changed Patient left before medications could be. documented in this encounter Plan of Treatment Not on file documented as of this encounter Procedures Procedure Name Priority Date/Time Associated Diagnosis Comments HEPATIC FUNCTION PANEL, S Routine 2024 9:00 AM CDT PROTHROMBIN TIME (PT), P Routine 9:00 AM CDT CBC WITH DIFFERENTIAL, B Routine 025 9:00 AM CDT BASIC METABOLIC PANEL, S/P Routine 12/30/2024 9:00 AM CDT ADULT OXYGEN THERAPY Routine 12/30/2024 8:01 AM CDT ADULT OXYGEN THERAPY Routine 12/29/2024 8:01 PM CDT LACTATE FOR SEPSIS WITH REFLEX STAT 12/29/2024 6:34 PM CDT BACTERIA / AVRIL CULTURE, BLOOD STAT 12/29/2024 6:34 PM CDT BACTERIA / AVRIL CULTURE, BLOOD STAT 12/29/2024 6:26 PM CDT US PARACENTESIS WITH IMAGING GUIDANCE RAD - Routine (most inpatients and all outpatients) 12/29/2024 4:32 PM CDT BACTERIAL CULTURE, AEROBIC + SUSC Timed 12/29/2024 4:15 PM CDT Hyperbilirubine carmina Jaundice Hyponatremia CELL COUNT AND DIFFERENTIAL, BF Timed 12/29/2024 4:15 PM CDT Hyperbilirubine carmina Jaundice Hyponatremia PHOSPHATIDYLETHANOL CONFIRMATION, B Routine 12/29/2024 11:10 AM CDT LIPID PANEL, S Routine 12/29/2024 10:16 AM CDT HEPATIC FUNCTION PANEL, S Routine 2024 10:16 AM CDT IRON AND TOT IRON-BINDING CAPACITY, S/P Routine 12/29/2024 10:16 AM CDT [id number], S Routine 10:16 AM CDT CERULOPLASMIN, S Routine 12/29/2024 10:16 AM CDT MITOCHONDRIAL ABS (M2), S Routine 2024 10:16 AM CDT SMOOTH MUSCLE ABS, S Routine 12/29/2024 10:16 AM CDT CBC WITH DIFFERENTIAL, B Routine 025 10:16 AM CDT ANTINUCLEAR ABS (EMANUEL), S Routine 025 10:16 AM CDT PHOSPHORUS (INORGANIC), S Routine 2024 10:16 AM CDT IMMUNOGLOBULIN G (IGG), S Routine 2024 10:16 AM CDT FERRITIN, S Routine 12/29/2024 10:16 AM CDT BASIC METABOLIC PANEL, S/P Routine 12/29/2024 10:16 AM CDT HBS ANTIGEN SCRN, S Routine 12/29/2024 10:15 AM CDT HCV AB W/REFLEX TO HCV PCR, S Routine 12/29/2024 10:15 AM CDT HEPATITIS A IGM AB Routine 12/29/2024 10:15 AM CDT HEP B CORE AB, IGM Routine 12/29/2024 10:15 AM CDT HEMOGLOBIN A1C, B Routine 12/29/2024 10:15 AM CDT ACETAMINOPHEN LEVEL, S Routine 9:50 AM CDT ADULT OXYGEN THERAPY Routine 12/29/2024 8:01 AM CDT ADULT OXYGEN THERAPY Routine 12/29/2024 1:11 AM CDT ADULT OXYGEN THERAPY Routine 12/29/2024 1:11 AM CDT ADULT OXYGEN THERAPY Routine 12/29/2024 1:11 AM CDT ETHANOL, S STAT 12/28/2024 11:42 PM CDT PHOSPHORUS (INORGANIC), S STAT 2024 11:42 PM CDT MAGNESIUM, S STAT 12/28/2024 11:42 PM CDT LACTATE, B/P STAT 12/28/2024 11:42 PM CDT US LIVER WITH LIVER DOPPLER RAD - Semiurgent (Fast; most ED patients; some inpatients) 12/28/2024 8:58 PM CDT US GALLBLADDER AND OR BILIARY DUCTS RAD - Semiurgent (Fast; most ED patients; some inpatients) 12/28/2024 8:[address] ABDOMEN PELVIS WITH IV CONTRAST RAD - Semiurgent (Fast; most ED patients; some inpatients) 12/28/2024 7:37 PM CDT LACTATE, B STAT 12/28/2024 5:17 PM CDT HEPATIC FUNCTION PANEL, S STAT 2024 5:17 PM CDT PROTHROMBIN TIME (PT), P STAT 5:17 PM CDT CBC WITH DIFFERENTIAL, B STAT 5:17 PM CDT LIPASE, S/P STAT 12/28/2024 5:17 PM CDT BASIC METABOLIC PANEL, S/P STAT 12/28/2024 5:17 PM CDT documented in this encounter Results * (ABNORMAL) Basic Metabolic Panel (12/30/2024 9:00 AM CDT) Potassium, S 4.2 3.6 - 5.2 mmol/L 12/30/2024 11:33 AM CDT DTL Sodium, S 128(L) 135 - 145 mmol/L 12/30/2024 11:33 AM CDT DTL Chloride, S 98 98 - 107 mmol/L 12/30/2024 11:33 AM CDT DTL Bicarbonate, S 19(L) 22 - 29 mmol/L 12/30/2024 11:33 AM CDT DTL Anion Gap 11 7 - 15 12/30/2024 11:33 AM CDT DTL BUN (Blood Urea Nitrogen), S 5(L) 8 - 24 mg/dL 12/30/2024 11:33 AM CDT DTL Creatinine 0.63(L) 0.74 - 1.35 mg/dL 12/30/2024 12:02 PM CDT DTL Estimated GFR (eGFR) >90 >=60 mL/min/BSA 12/30/2024 12:02 PM CDT DTL Comment: Estimated GFR calculated using the 2020 CKD_EPI creatinine equation. Calcium, Total, S 8.1(L) 8.6 - 10.0 mg/dL 12/30/2024 11:33 AM CDT DTL Glucose, S 112 70 - 140 mg/dL 12/30/2024 11:33 AM CDT DTL Blood (Blood, Venous) 12/30/2024 9:00 AM CDT 12/30/2024 9:47 AM CDT us Janki Perkins M.D. LAB BLOOD ADD-ON Final Resu lt [facility] [address] [place] [address], [facility] DTL [facility] [address] [place] [address] * (ABNORMAL) CBC with Differential, Blood (12/30/2024 9:00 AM CDT) Hemoglobin 12.7(L) 13.2 - 16.6 g/dL 12/30/2024 9:43 AM CDT DTL Hematocrit 36.1(L) 38.3 - 48.6 % 12/30/2024 9:43 AM CDT DTL Erythrocytes 3.80(L) 4.35 - 5.65 x10(12)/L 12/30/2024 9:43 AM CDT DTL MCV 95.0 78.2 - 97.9 fL 12/30/2024 9:43 AM CDT DTL RBC Distrib Width 19.4(H) 11.8 - 14.5 % 12/30/2024 9:43 AM CDT DTL Platelet Count 410(H) 135 - 317 x10(9)/L 12/30/2024 9:43 AM CDT DTL Leukocytes 12.1(H) 3.4 - 9.6 x10(9)/L 12/30/2024 9:43 AM CDT DTL Neutrophils 9.98(H) 1.56 - 6.45 x10(9)/L 12/30/2024 11:04 AM CDT [facility] Comment:Rechecked Lymphocytes 0.88(L) 0.95 - 3.07 x10(9)/L 12/30/2024 11:04 AM CDT DTL Monocytes 0.97(H) 0.26 - 0.81 x10(9)/L 12/30/2024 11:04 AM CDT DTL Eosinophils 0.12 0.03 - 0.48 x10(9)/L 12/30/2024 11:04 AM CDT DTL Basophils 0.14(H) 0.01 - 0.08 x10(9)/L 12/30/2024 11:04 AM CDT DTL Blood (Blood, Venous) 12/30/2024 9:00 AM CDT 12/30/2024 9:33 AM CDT Janki Perkins M.D. LAB BLOOD ADD-ON Final Resu lt Performing Organization Address City/[facility]/ZIP Co de Phone Number [facility] [address] [place] [address], [facility] [address], [place] [id number] [place] [address] [address] [place] [address] * (ABNORMAL) Prothrombin Time (PT) (12/30/2024 9:00 AM CDT) Prothrombin Time, P 15.8(H) 9.4 - 12.5 sec 12/30/2024 11:32 AM CDT DTL INR 1.4 0.9 - 1.1 12/30/2024 11:32 AM CDT DTL Comment: ----ADDITIONAL INFORMATION---- Standard intensity warfarin therapeutic range: 2.0 to 3.0 High intensity warfarin therapeutic range: 2.5 to 3.5 Blood (Blood, Venous) 12/30/2024 9:00 AM CDT 12/30/2024 9:33 AM CDT Janki Perkins M.D. LAB BLOOD ADD-ON Final Resu lt Performing Organization Address City/[facility]/ZIP Co de Phone Number [facility] [address] [place] [address], [facility] [address] [place] [address] * (ABNORMAL) Hepatic Function Panel (12/30/2024 9:00 AM CDT) Bilirubin, Total, S 15.8(H) 0.0 - 1.2 mg/dL 12/30/2024 11:33 AM CDT DTL Bilirubin, Direct, S 13.1(H) 0.0 - 0.3 mg/dL 12/30/2024 12:06 PM CDT DTL Aspartate Aminotransferase (AST), S 328(H) 8 - 48 U/L 12/30/2024 11:33 AM CDT DTL Alanine Aminotransferase (ALT), S 98(H) 7 - 55 U/L 12/30/2024 11:33 AM CDT DTL Alkaline Phosphatase, S 204(H) 40 - 129 U/L 12/30/2024 11:33 AM CDT DTL Albumin, S 2.6(L) 3.5 - 5.0 g/dL 12/30/2024 11:33 AM CDT DTL Protein, Total, S 6.2(L) 6.3 - 7.9 g/dL 12/30/2024 11:33 AM CDT DTL Blood (Blood, Venous) 12/30/2024 9:00 AM CDT 12/30/2024 9:47 AM CDT us Janki Perkins M.D. LAB BLOOD ADD-ON Final Resu lt [facility] [address] [place] [address], [facility] DTL [facility] [address] [place] [address] * Lactate for Sepsis with Reflex (12/29/2024 6:34 PM CDT) Lactate, P 1.7 0.5 - 2.2 mmol/L 12/29/2024 7:02 PM CDT STMA Blood (Blood, Venous) 12/29/2024 6:34 PM CDT 12/29/2024 6:40 PM CDT us Janki Perkins M.D. LAB BLOOD NON ADD-ON Final Result [facility] [address] [place] [address], [facility] STMA [facility] [address] [place] [address] * Bacteria / Avril Culture, Blood #2 (12/29/2024 6:34 PM CDT) Bacteria/Berenice da Culture, Blood No growth after 5 days of incubation. 01/03/2025 7:02 PM CDT DTL Blood (Blood, Peripheral Draw) 12/29/2024 6:34 PM CDT 12/29/2024 7:01 PM CDT Comment:Specimen Source Site : Blood us Janki Perkins M.D. LAB MICROBIOLOGY - GENERAL ORDERABLES Final Result Performing Organization Address [facility]/ZIP Co de Phone Number [facility] [address] [place] [address] * Bacteria / Avril Culture, Blood #1 (12/29/2024 6:26 PM CDT) Bacteria/Berenice da Culture, Blood No growth after 5 days of incubation. 01/03/2025 7:02 PM CDT DTL Blood (Blood, Peripheral Draw) 12/29/2024 6:26 PM CDT 12/29/2024 7:01 PM CDT Comment:Specimen Source Site : Blood us Janki Perkins M.D. LAB MICROBIOLOGY - GENERAL ORDERABLES Final Result Performing Organization Address [facility] Co de Phone Number [facility] [address] [place] [address] * US Paracentesis with Imaging Guidance (12/29/2024 4:32 PM CDT) Anatomical Region Laterality Modality Abdomen, Ultrasound RST LOS, Ultrasound ARZ LOS, Procedure FLA LOS, Abdominal FLA LOS, Procedural, Procedural NWWI LOS N/A Ultrasound Impressions 12/29/2024 4:35 PM CDT Ultrasound-guided paracentesis. EP Narrative 12/29/2024 4:35 PM CDT EXAM: US PARACENTESIS WITH IMAGING GUIDANCE PRE-PROCEDURE: Patient seen and evaluated. Allergies, pertinent medications, and history reviewed. Discussed risks, benefits, alternatives for procedure, and obtained informed consent. Patient understands information and questions answered. Immediately prior to starting the procedure, in the presence of the assisting personnel, procedural pause was conducted to verify correct patient identity and verification of procedure to be performed, and as applicable, correct side and site, correct patient position, availability of implants, special equipment, or special requirements, and all image and specimen identification data. The roles and responsibilities of care team members, residents, and fellows were discussed. TECHNIQUE: Sterile. 1% lidocaine for local anesthesia. Location: Right lower quadrant peritoneal space. Needle size: 5 Fr centesis catheter. Volume aspirated: 40 cc Appearance of aspirate: Clear yellow Complication: None. Blood loss: None. Purpose: Diagnostic PATIENT INSTRUCTIONS: Patient may be dismissed from the radiology department when dismissal criteria met. POST-PROCEDURE DIAGNOSIS: Ascites. Procedure Note Gurpreet Loomis Jr., M.D. - 12/29/2024 EXAM: US PARACENTESIS WITH IMAGING GUIDANCE PRE-PROCEDURE: Patient seen and evaluated. Allergies, pertinentmedications, and history reviewed. Discussed risks, benefits, alternativesfor procedure, and obtained informed consent. Patient understandsinformation and questions answered. Immediately prior to starting the procedure, in the presence of the assistingpersonnel, procedural pause was conducted to verify correct patientidentity and verification of procedure to be performed, and as applicable,correct side and site, correct patient position, availability of implants, special equipment, or specialrequirements, and all image and specimen identification data. The rolesand responsibilities of care team members, residents, and fellows werediscussed. TECHNIQUE: Sterile. 1% lidocaine for local anesthesia. Location: Right lower quadrant peritoneal space. Needle size: 5 Fr centesis catheter. Volume aspirated: 40 cc Appearance of aspirate: Clear yellow Complication: None. Blood loss: None. Purpose: Diagnostic PATIENT INSTRUCTIONS: Patient may be dismissed from the radiologydepartment when dismissal criteria met. POST-PROCEDURE DIAGNOSIS: Ascites. IMPRESSION: Ultrasound-guided paracentesis. EP us Janki Perkins M.D. IMG US PROCEDURES Final Res ult * Cell Count and Differential, Body Fluid (12/29/2024 4:15 PM CDT) Fluid Type Peritoneal /Paracente sis 12/29/2024 5:54 PM CDT DHPM Gross Appearance Serous 12/30/19 25 5:54 PM CDT DHPM Total Nucleated Cells 220 /mcL 12/29/2024 5:54 PM CDT DHPM Comment: ----REFERENCE VALUE---- Synovial: <150 /mcL Peritoneal: <500 /mcL Pleural: <500 /mcL Pericardial: <500 /mcL ----ADDITIONAL INFORMATION---- This test has been modified from the switch maker's instructions. Its performance characteristics were determined by [facility] in a manner consistent with CLIA requirements. This test has not been cleared or approved by the U.S. Food and Drug Administration. Neutrophils 3 % 12/29/2024 9:11 PM CDT DHPM Comment: ----REFERENCE VALUE---- Synovial: <25% Peritoneal: <25% Pleural: <25% Pericardial: <25% Lymphocytes 6 Synovial <75% % 12/29/2024 9:11 PM CDT DHPM Monocytes/Macropha ges 90 Synovial <70% % 12/29/2024 9:11 PM CDT DHPM Other Cells 1 % 12/29/2024 9:11 PM CDT DHPM Comment: ----REFERENCE VALUE---- The reference range and other method performance specifications have not been established for this bodyfluid. The test result must be integrated into the clinical context for interpretation. Other Cells Are: See Comment 12/29/2024 9:11 PM CDT DHPM Comment:Mesothelial cells Comment See Comment 12/29/2024 9:11 PM CDT DHPM Comment:No blasts or maligna nt cells seen. Reviewed by: Tech 12/29/2024 9:11 PM CDT DHPM Fluid (Peritoneal Fluid) 12/29/2024 4:15 PM CDT us Janki Perkins M.D. LAB BODY FLUIDS AND STOOLS ORDERABLES Final Result [facility] [address] [place] [address] * Bacterial Culture, Aerobic + Susceptibility (12/29/2024 4:15 PM CDT) Bacterial Culture, Aerobic + Susc No growth after 5 days of incubation. 01/03/2025 3:26 PM CDT DTL Fluid (Peritoneum) 12/29/2024 4:15 PM CDT Narrative [facility] - 01/03/2025 3:26 PM CDT Bacterial Culture: Received Bactec aerobic and Bactec anaerobic bottles Janki Perkins M.D. LAB MICROBIOLOGY - GENERAL ORDERABLES Final Result [facility] [address] [facility] [address] [place] [address] * Phosphatidylethanol Confirmation (12/29/2024 11:10 AM CDT) PEth 16:0/18:1 (POPEth) by LC-MS/MS 457 Cutoff: 10 ng/mL 12/31/2024 2:16 PM CDT [facility] Comment: Phosphatidylethanol (PEth) homologues result interpretation PEth 16:0/18:1 (POPEth) Less than 10 ng/mL: Not detected 10 - 19 ng/mL: Abstinence or light alcohol consumption (<2 drinks per day for several days a week) 20 - 200 ng/mL: Moderate alcohol consumption (up to 4 drinks per day for several days a week) Greater than 200 ng/mL: Heavy alcohol consumption or chronic alcohol use (at least 4 drinks per day several days a week) (Reference: Johanna Harding and Israel Hawk 2018 J. Forensic Sci) PEth 16:0/18:2 (PLPEth) by LC-MS/MS 176 Cutoff: 10 ng/mL 12/31/2024 2:16 PM CDT [facility] Comment: PEth 16:0/18:2 (PLPEth) Reference ranges are not well established PEth Interpretation Positive. 12/31 2:16 PM CDT [facility] Comment: ----ADDITIONAL INFORMATION---- This report is intended for use in clinical monitoring and management of patients. It is not intended for use in employment-related testing. This test was developed and its performance characteristics determined by [facility] in a manner consistent with CLIA requirements. This test has not been cleared or approved by the U.S. Food and Drug Administration. Blood (Blood, Venous) 12/29/2024 11:10 AM CDT 12/29/2024 12:47 PM CDT Camilla Beth M.D. LAB BLOOD ADD-ON Final Result Performing Organization Address [facility]/ZIP Co de Phone Number [facility] [address] [place] [address] [facility] [address] [place] [address] [place] [address] * (ABNORMAL) Phosphorus Inorganic (12/29/2024 10:16 AM CDT) Phosphorus (Inorganic), S 1.7(L) 2.5 - 4.5 mg/dL 12/29/2024 11:27 AM CDT DT Blood (Blood, Venous) 12/29/2024 10:16 AM CDT 12/29/2024 11:01 AM CDT Kassi Pascual M.D., Ph.D. LAB BLOOD ADD-ON Final Result Performing Organization Address City/[facility] Co de Phone Number [facility] [address] [place] [address], [facility] [address] [place] [address] * (ABNORMAL) Lipid Panel (12/29/2024 10:16 AM CDT) Triglycerides 393(H) mg/dL 12/29/2024 12:30 PM CDT [facility] Comment: ----REFERENCE VALUE---- Normal: <150 mg/dL Borderline High: 150-199 mg/dL High: 200-499 mg/dL Very High: > or =500 mg/dL Cholesterol, Total 137 mg/dL 2024 12:19 PM CDT DTL Comment: ----REFERENCE VALUE---- Desirable: < 200 mg/dL Borderline High: 200 - 239 mg/dL High: > or = 240 mg/dL Cholesterol, LDL, Calculated 69 mg/dL 12/29/2024 12:30 PM CDT DTL Comment: ----REFERENCE VALUE---- Desirable: <100 mg/dL Above Desirable: 100-129 mg/dL Borderline High: 130-159 mg/dL High: 160-189 mg/dL Very High: >=190 mg/dL ----ADDITIONAL INFORMATION---- LDL cholesterol calculated using the Cuenca/NIH equation. Cholesterol, HDL, S 5(L) >=40 mg/dL 12/29/2024 12:30 PM CDT DTL Cholesterol, Non-HDL, Calculated 132 mg/dL 12/29/2024 12:30 PM CDT DTL Comment: ----REFERENCE VALUE---- Desirable: <130 mg/dL Above Desirable: 130-159 mg/dL Borderline High: 160-189 mg/dL High: 190-219 mg/dL Very High: > or =220 mg/dL Fasting (8 HR or more) No 12/29/2024 10:16 AM CDT DTL Blood (Blood, Venous) 12/29/2024 10:16 AM CDT 12/29/2024 11:01 AM CDT Kassi Pascual M.D., Ph.D. LAB BLOOD ADD-ON Final Result [facility] [address] [place] [address], [facility]Ad[facility] [address] [place] [address] * (ABNORMAL) Hepatic Function Panel (12/29/2024 10:16 AM CDT) Bilirubin, Total, S 14.9(H) 0.0 - 1.2 mg/dL 12/29/2024 11:27 AM CDT DTL Bilirubin, Direct, S 12.3(H) 0.0 - 0.3 mg/dL 12/29/2024 12:21 PM CDT DTL Aspartate Aminotransferase (AST), S 300(H) 8 - 48 U/L 12/29/2024 11:27 AM CDT DTL Alanine Aminotransferase (ALT), S 93(H) 7 - 55 U/L 12/29/2024 11:27 AM CDT DTL Alkaline Phosphatase, S 196(H) 40 - 129 U/L 12/29/2024 11:27 AM CDT DTL Albumin, S 2.7(L) 3.5 - 5.0 g/dL 12/29/2024 11:27 AM CDT DTL Protein, Total, S 6.1(L) 6.3 - 7.9 g/dL 12/29/2024 11:27 AM CDT DTL Blood (Blood, Venous) 12/29/2024 10:16 AM CDT 12/29/2024 11:01 AM CDT us Kassi Pascual M.D., Ph.D. LAB BLOOD ADD-ON Final Result [facility] [address] [facility] [address] [place] [address] * (ABNORMAL) Fbrwf-1-Oikmlfgvxgj (12/29/2024 10:16 AM CDT) Rueqw-9-Rcibbeh psin, S 239(H) 100 - 190 mg/dL 12/29/2024 4:10 PM CDT [facility] Blood (Blood, Venous) 12/29/2024 10:16 AM CDT 12/29/2024 2:54 PM CDT us Kassi Pascual M.D., Ph.D. LAB BLOOD ADD-ON Final Result [facility] [address] [place] [address] [facility] [address] [place] [address] * (ABNORMAL) Ceruloplasmin (12/29/2024 10:16 AM CDT) [facility] Ceruloplasmin, S 39.7(H) 19.0 - 31.0 mg/dL 12/29/2024 1:30 PM CDT DT Blood (Blood, Venous) 12/29/2024 10:16 AM CDT 12/29/2024 11:43 AM CDT Kassi Pascual M.D., Ph.D. LAB BLOOD ADD-ON Final Result [facility] [address] [place] [address], [facility] [address] [place] [address] * Mitochondrial Antibodies (M2) (12/29/2024 10:16 AM CDT) [facility] Mitochondrial Ab, M2, S <0.1 <0.1 (Negative) U 12/29/2024 6:43 PM CDT [facility] Blood (Blood, Venous) 12/29/2024 10:16 AM CDT 12/29/2024 12:59 PM CDT Kassi Pascual M.D., Ph.D. LAB BLOOD ADD-ON Final Result [facility] [address] [place] [address] [facility] [address] [place] [address] * (ABNORMAL) Immunoglobulin G (IgG) (12/29/2024 10:16 AM CDT) [facility] Immunoglobulin G (IgG), S 1780(H) 767 - 1590 mg/dL 12/29/2024 4:04 PM CDT [facility] Blood (Blood, Venous) 12/29/2024 10:16 AM CDT 12/29/2024 1:44 PM CDT us Kassi Pascual M.D., Ph.D. LAB BLOOD ADD-ON Final Result [facility] [address] [place] [address] [facility] [address] [place] [address] * (ABNORMAL) Ferritin (12/29/2024 10:16 AM CDT) Ferritin, S 417(H) 31 - 409 mcg/L 12/29/2024 11:27 AM CDT DTL Blood (Blood, Venous) 12/29/2024 10:16 AM CDT 12/29/2024 10:49 AM CDT Kassi Pascual M.D., Ph.D. LAB BLOOD ADD-ON Final Result Performing Organization Address City/[facility]/ZIP Co de Phone Number [facility] [address] [facility] [address] [place] [address] * (ABNORMAL) Iron and Total Iron-Binding Capacity (12/29/2024 10:16 AM CDT) Iron 65 50 - 150 mcg/dL 12/29/2024 11:27 AM CDT DTL Total Iron Binding Capacity 177(L) 250 - 400 mcg/dL 12/29/2024 11:27 AM CDT DTL Percent Saturation 37 14 - 50 % 12/29/2024 11:27 AM CDT DTL Blood (Blood, Venous) 12/29/2024 10:16 AM CDT 12/29/2024 10:49 AM CDT us Kassi Pascual M.D., Ph.D. LAB BLOOD ADD-ON Final Result Performing Organization Address City/[facility]/ZIP Co de Phone Number [facility] [address] [facility] [address] [place] [address] * Smooth Muscle Antibodies (12/29/2024 10:16 AM CDT) Pathologist [facility] Smooth Muscle Ab Screen, S Negative Negative 12/30/2024 10:42 AM CDT [facility] Comment: Negative: No further testing will be performed ----ADDITIONAL INFORMATION---- This test was developed and its performance characteristics determined by [facility] in a manner consistent with CLIA requirements. This test has not been cleared or approved by the U.S. Food and Drug Administration. Blood (Blood, Venous) 12/29/2024 10:16 AM CDT 12/29/2024 12:54 PM CDT Kassi Pascual M.D., Ph.D. LAB BLOOD ADD-ON Final Result Performing Organization Address [facility] Co de Phone Number [facility] [address] [place] [address] [place] [id number] [place] [address] [place] [address] * (ABNORMAL) EMANUEL (Antinuclear Antibodies) (12/29/2024 10:16 AM CDT) Pathologist [facility] Antinuclear Ab, S 2.1(H) <=1.0 (Negative) U 12/29/2024 7:34 PM CDT [facility] Comment: Interpretation: Weak Positive (1.1-2.9) ----ADDITIONAL INFORMATION---- Method: Enzyme-linked immunoassay using HEp-2 nuclear extract supplemented with purified antigens. Blood (Blood, Venous) 12/29/2024 10:16 AM CDT 12/29/2024 12:58 PM CDT us Kassi Pascual M.D., Ph.D. LAB BLOOD ADD-ON Final Result Performing Organization Address City/[facility]/ZIP Co de Phone Number [facility] [address] [place] [address] [facility] [address] [place] [address] * (ABNORMAL) CBC with Differential, Blood (12/29/2024 10:16 AM CDT) Hemoglobin 12.3(L) 13.2 - 16.6 g/dL 12/29/2024 10:51 AM CDT DTL Hematocrit 34.4(L) 38.3 - 48.6 % 12/29/2024 10:51 AM CDT DTL Erythrocytes 3.65(L) 4.35 - 5.65 x10(12)/L 12/29/2024 10:51 AM CDT DTL MCV 94.2 78.2 - 97.9 fL 12/29/2024 10:51 AM CDT DTL RBC Distrib Width 19.2(H) 11.8 - 14.5 % 12/29/2024 10:51 AM CDT DTL Platelet Count 396(H) 135 - 317 x10(9)/L 12/29/2024 10:51 AM CDT DTL Leukocytes 12.0(H) 3.4 - 9.6 x10(9)/L 12/29/2024 10:51 AM CDT DTL Neutrophils 9.62(H) 1.56 - 6.45 x10(9)/L 12/29/2024 11:52 AM CDT [facility] Comment:Rechecked Lymphocytes 0.95 0.95 - 3.07 x10(9)/L 12/29/2024 11:52 AM CDT DTL Monocytes 1.19(H) 0.26 - 0.81 x10(9)/L 12/29/2024 11:52 AM CDT DTL Eosinophils 0.11 0.03 - 0.48 x10(9)/L 12/29/2024 11:52 AM CDT DTL Basophils 0.10(H) 0.01 - 0.08 x10(9)/L 12/29/2024 11:52 AM CDT DTL Blood (Blood, Venous) 12/29/2024 10:16 AM CDT 12/29/2024 10:37 AM CDT Kassi Pascual M.D., Ph.D. LAB BLOOD ADD-ON Final Result [facility] [address] [place] [address], [facility] DTL [facility] [address] [place] [address] [facility] [address] [place] [address] * (ABNORMAL) Basic Metabolic Panel (12/29/2024 10:16 AM CDT) [facility] Potassium, S 4.3 3.6 - 5.2 mmol/L 12/29/2024 11:27 AM CDT DTL Sodium, S 129(L) 135 - 145 mmol/L 12/29/2024 11:27 AM CDT DTL Chloride, S 100 98 - 107 mmol/L 12/29/2024 11:27 AM CDT DTL Bicarbonate, S 18(L) 22 - 29 mmol/L 12/29/2024 11:27 AM CDT DTL Anion Gap 11 7 - 15 12/29/2024 11:27 AM CDT DTL BUN (Blood Urea Nitrogen), S 6(L) 8 - 24 mg/dL 12/29/2024 11:27 AM CDT DTL Creatinine 0.43(L) 0.74 - 1.35 mg/dL 12/29/2024 1:39 PM CDT DTL Estimated GFR (eGFR) >90 >=60 mL/min/BSA 12/29/2024 1:39 PM CDT DTL Comment: Estimated GFR calculated using the 2020 CKD_EPI creatinine equation. Calcium, Total, S 7.9(L) 8.6 - 10.0 mg/dL 12/29/2024 11:27 AM CDT DTL Glucose, S 119 70 - 140 mg/dL 12/29/2024 11:27 AM CDT DTL Blood (Blood, Venous) 12/29/2024 10:16 AM CDT 12/29/2024 10:49 AM CDT Kassi Pascual M.D., Ph.D. LAB BLOOD ADD-ON Final Result [facility] [address] [place] [address], [place] [facility] [address] [place] [address] * Hemoglobin A1c (12/29/2024 10:15 AM CDT) Pathologist [facility] Hemoglobin A1c, B 4.8 4.0 - 5.6 % 12/29/2024 11:08 AM CDT [facility] Blood (Blood, Venous) 12/29/2024 10:15 AM CDT 12/29/2024 10:37 AM CDT Kassi Pascual M.D., Ph.D. LAB BLOOD ADD-ON Final Result [facility] [address] [place] [address], [facility] [address] [place] [address] * HBs Antigen Scrn, Serum (12/29/2024 10:15 AM CDT) [facility] HBs Antigen Scrn, S Negative Negative 12/29/2024 1:48 PM CDT [facility] Blood (Blood, Peripheral Draw) 12/29/2024 10:15 AM CDT 12/29/2024 1:04 PM CDT Kassi Pascual M.D., Ph.D. LAB MICROBIOLOGY - BLOOD ORDERABLES Final Result [facility] [address] [place] [address] [facility] [address] [place] [address] * HCV Ab w/Reflex to HCV PCR, Serum (12/29/2024 10:15 AM CDT) Pathologist [facility] HCV Ab, S Negative Negative 12/29/2024 1:48 PM CDT [facility] Comment: Consumption of high-dose biotin supplement within 12 hours of blood collection for this test can cause false-negative results. Blood (Blood, Venous) 12/29/2024 10:15 AM CDT 12/29/2024 1:04 PM CDT Result [facility] Kassi Pascual M.D., Ph.D. LAB MICROBIOLOGY - BLOOD ORDERABLES Final Result Performing Organization Address [facility] Co de Phone Number [facility] [address] [place] [address] [facility] [address] [place] [address] * Hepatitis A IgM Ab, Serum (12/29/2024 10:15 AM CDT) Hepatitis A IgM Ab, S Negative Negative 12/29/2024 1:48 PM CDT [facility] Comment: This result does not exclude the possibility of recent exposure to hepatitis A virus. Antibody level during early infection stage may be below the limit of detection of the assay. Consumption of high-dose biotin supplement within 12 hours of blood collection for this test can cause false-negative results. Blood (Blood, Peripheral Draw) 12/29/2024 10:15 AM CDT 12/29/2024 1:04 PM CDT Result [facility] Kassi Pascual M.D., Ph.D. LAB MICROBIOLOGY - BLOOD ORDERABLES Final Result Performing Organization Address [facility] Co de Phone Number [facility] [address] [place] [address] [place] [id number] [place] [address] * Hepatitis B Core IgM Ab (12/29/2024 10:15 AM CDT) HBc IgM Ab, S Negative Negative 12/29/2024 1:48 PM CDT [facility] Comment: Consumption of high-dose biotin supplement within 12 hours of blood collection for this test can cause false-negative results. Blood (Blood, Peripheral Draw) 12/29/2024 10:15 AM CDT 12/29/2024 1:04 PM CDT Result [facility] Kassi Pascual M.D., Ph.D. LAB MICROBIOLOGY - BLOOD ORDERABLES Final Result Performing Organization Address City/[facility]/ZIP Co de Phone Number [facility] [address] [place] [address] [facility] [address] [place] [address] * Acetaminophen Level (12/29/2024 9:50 AM CDT) Acetaminophen, S <7 Therapeutic Range: 10-30 mcg/mL 12/29/2024 12:27 PM CDT DTL Blood (Blood, Venous) 12/29/2024 9:50 AM CDT 12/29/2024 12:02 PM CDT Camilla Beth M.D. LAB BLOOD ADD-ON Final Result Performing Organization Address [facility] Co de Phone Number [facility] [address] [place] [address] * (ABNORMAL) Magnesium (12/28/2024 11:42 PM CDT) Pathologist [facility] Magnesium, P 2.4(H) 1.7 - 2.3 mg/dL 12/29/2024 12:16 AM CDT DTL Blood (Blood, Venous) 12/28/2024 11:42 PM CDT 12/28/2024 11:52 PM CDT Regi Mcadams APRN, C.N.P., D.N.P., M.S.N. LAB BLO OD ADD-ON Final Result Performing Organization Address [facility] Co de Phone Number [facility] [address] [place] [address] * (ABNORMAL) Phosphorus Inorganic (12/28/2024 11:42 PM CDT) Pathologist [facility] Phosphorus (Inorganic), P 1.6(L) 2.5 - 4.5 mg/dL 12/29/2024 12:16 AM CDT DTL Blood (Blood, Venous) 12/28/2024 11:42 PM CDT 12/28/2024 11:52 PM CDT Edilberto Mcguire APRN.N.P., D.N.P., M.S.N. LAB BLO OD ADD-ON Final Result Performing Organization Address [facility] Co de Phone Number [facility] [address] [place] [address] * Lactate (12/28/2024 11:42 PM CDT) Lactate, P 1.0 0.5 - 2.2 mmol/L 12/29/2024 12:17 AM CDT DTL Blood (Blood, Venous) 12/28/2024 11:42 PM CDT 12/28/2024 11:52 PM CDT Regi Mcadams APRN C.N.P., D.N.P., M.S.N. LAB BLO OD NON ADD-ON Final Result Performing Organization Address [facility] de Phone Number [facility] [address] [place] [address] * Ethanol Level, Serum (12/28/2024 11:42 PM CDT) Ethanol, S <10 <10 mg/dL 12/29/2024 12:24 AM CDT DTL Blood (Blood, Venous) 12/28/2024 11:42 PM CDT 12/29/2024 12:13 AM CDT Jeanine Thompson P.A.-C., M.S. LAB BLOOD NON ADD -ON Final Result [facility] [address] [place] [address], [place] DTL [facility] [address] [place] [address] * US Liver with Liver Doppler (12/28/2024 8:58 PM CDT) Anatomical Region Laterality Modality Abdomen, Ultrasound RST LOS, Ultrasound ARZ LOS, Ultrasound FLA LOS N/A Ultrasound Impressions 12/29/2024 7:06 AM CDT 1. Echogenic and coarsened liver parenchyma consistent with steatosis and chronic parenchymal disease. No focal hepatic observations. 2. Reversal of flow in the right, left and main portal veins which can be seen in the setting of portal hypertension. 3. Normal antegrade flow in the main hepatic artery and hepatic veins. Narrative 12/29/2024 7:06 AM CDT EXAM: US LIVER WITH LIVER DOPPLER Exam performed with color and spectral Doppler analysis. COMPARISON: CT abdomen pelvis 12/28/2024 FINDINGS: Liver: Coarse echotexture consistent with chronic parenchymal disease. Diffuse hepatic steatosis. No focal hepatic observations. Doppler: Hepatic veins are patent with antegrade flow. The main hepatic artery is patent with antegrade flow. Reversal of flow in the left portal vein, main portal vein, and right portal vein. Intrahepatic ducts: Not dilated. Common duct: Normal caliber common hepatic duct. Common bile duct was obscured by shadowing bowel gas. Other: Trace ascites. Procedure Note Miah Johnson M.D. - 12/29/2024 EXAM: US LIVER WITH LIVER DOPPLER Exam performed with color and spectral Doppler analysis. COMPARISON: CT abdomen pelvis 12/28/2024 FINDINGS: Liver: Coarse echotexture consistent with chronic parenchymal disease.Diffuse hepatic steatosis. No focal hepatic observations. Doppler: Hepatic veins are patent with antegrade flow. The main hepaticartery is patent with antegrade flow. Reversal of flow in the left portalvein, main portal vein, and right portal vein. Intrahepatic ducts: Not dilated. Common duct: Normal caliber common hepatic duct. Common bile duct wasobscured by shadowing bowel gas. Other: Trace ascites. IMPRESSION: 1. Echogenic and coarsened liver parenchyma consistent with steatosis andchronic parenchymal disease. No focal hepatic observations. 2. Reversal of flow in the right, left and main portal veins which can beseen in the setting of portal hypertension. 3. Normal antegrade flow in the main hepatic artery and hepatic veins. us Ivan Meléndez M.D. IMG US PROCEDURES Ann l Result * US Gallbladder and or Biliary Ducts (12/28/2024 8:58 PM CDT) Anatomical Region Laterality Modality Abdomen, Ultrasound RST LOS, Ultrasound ARZ LOS, Ultrasound FLA LOS N/A Ultrasound Impressions 12/29/2024 6:32 AM CDT 1. No biliary ductal dilatation. 2. Appearance of the gallbladder is within normal limits given known liver parenchymal disease/cirrhosis. Narrative 12/29/2024 6:32 AM CDT EXAM: US GALLBLADDER AND OR BILIARY DUCTS COMPARISON: CT abdomen pelvis 12/28/2024 FINDINGS: Gallbladder: Nondistended gallbladder. Mild gallbladder wall thickening is nonspecific and likely normal given gallbladder underdistention and known liver parenchymal disease/cirrhosis. Small amount of gallbladder sludge. Negative sonographic Galan's sign. Trace perihepatic ascites including adjacent to the gallbladder. Intrahepatic ducts: Not dilated. Common duct: Not dilated. Aorta: Normal caliber proximally. Distal abdominal aorta obscured by shadowing bowel gas. Procedure Note Miah Johnson M.D. - 12/29/2024 EXAM: US GALLBLADDER AND OR BILIARY DUCTS COMPARISON: CT abdomen pelvis 12/28/2024 FINDINGS: Gallbladder: Nondistended gallbladder. Mild gallbladder wall thickening isnonspecific and likely normal given gallbladder underdistention and knownliver parenchymal disease/cirrhosis. Small amount of gallbladder sludge.Negative sonographic Galan's sign. Trace perihepatic ascites including adjacent to the gallbladder. Intrahepatic ducts: Not dilated. Common duct: Not dilated. Aorta: Normal caliber proximally. Distal abdominal aorta obscured byshadowing bowel gas. IMPRESSION: 1. No biliary ductal dilatation. 2. Appearance of the gallbladder is within normal limits given known liverparenchymal disease/cirrhosis. us Ivan LaraD. IMG US PROCEDURES Ann l Result * CT Abdomen Pelvis with IV Contrast (12/28/2024 7:37 PM CDT) Anatomical Region Laterality Modality Abdomen, Pelvis, Abdominal R ST LOS, Abdominal ARZ LOS, Abdominal FLA LOS N/A Computed Tomograp hy, Computed Tomography 12/28/2024 7:34 PM CDT Impressions 12/28/2024 8:06 PM CDT 1. Heterogenous appearance of the liver parenchyma suspicious for interval development of cirrhosis especially considering additional findings suggestive of portal hypertension including mild ascites and congestion of the proximal colon. 2. Gallbladder wall measures 3 mm with pericholecystic fluid, favor reactive due to hepatic dysfunction. No cholelithiasis. 3. Duodenal wall thickening may represent reactive duodenitis versus less likely grooved pancreatitis. Narrative 12/28/2024 8:06 PM CDT EXAM: CT ABDOMEN PELVIS WITH IV CONTRAST COMPARISON: CT 02/10/2022 FINDINGS: Heterogenous appearance of the liver parenchyma. No suspicious hepatic lesions. Small volume ascites. New splenomegaly. New prominent vascular collaterals throughout the abdomen including recannulization of the periumbilical vein. Mild gallbladder wall thickening measuring 3 mm with pericholecystic fluid, favor reactive due to hepatic dysfunction. No cholelithiasis. No hydronephrosis. Long segment (20.0 cm) duodenal wall thickening. Periduodenal stranding. Long segment cecal and ascending colonic wall thickening and pericolonic stranding. Normal-appearing terminal ileum. No obstruction. Scattered mesenteric stranding. No abdominopelvic organized fluid collection. No adenopathy. No suspicious osseous lesions. Lung bases are clear. Procedure Note Bold, Vikas Ibarra M.D. - 12/28/2024 EXAM: CT ABDOMEN PELVIS WITH IV CONTRAST COMPARISON: CT 02/10/2022 FINDINGS: Heterogenous appearance of the liver parenchyma. No suspicious hepaticlesions. Small volume ascites. New splenomegaly. New prominent vascularcollaterals throughout the abdomen including recannulization of theperiumbilical vein. Mild gallbladder wall thickening measuring 3 mm with pericholecystic fluid, favor reactive dueto hepatic dysfunction. No cholelithiasis. No hydronephrosis. Long segment (20.0 cm) duodenal wall thickening. Periduodenal stranding.Long segment cecal and ascending colonic wall thickening and pericolonicstranding. Normal-appearing terminal ileum. No obstruction. Scatteredmesenteric stranding. No abdominopelvic organized fluid collection. No adenopathy. No suspicious osseous lesions. Lung bases are clear. IMPRESSION: 1. Heterogenous appearance of the liver parenchyma suspicious forinterval development of cirrhosis especially considering additionalfindings suggestive of portal hypertension including mild ascites andcongestion of the proximal colon. 2. Gallbladder wall measures 3 mm with pericholecystic fluid, favorreactive due to hepatic dysfunction. No cholelithiasis. 3. Duodenal wall thickening may represent reactive duodenitis versus lesslikely grooved pancreatitis. Jeanine Thompson P.A.-C., M.S. IMG CT PROCEDURES Final Result * (ABNORMAL) Lactate, B (12/28/2024 5:17 PM CDT) Pathologist [facility] Lactate, B 2.6(H) 0.5 - 2.2 mmol/L 12/28/2024 5:26 PM CDT STMA Blood (Blood, Venous) 12/28/2024 5:17 PM CDT 12/28/2024 5:24 PM CDT Deysi Garcia P.A.-C., M.S. LAB BLOOD NON ADD -ON Final Result [facility] [address] [place] [address], [facility] [address] [place] [address] * Lipase (12/28/2024 5:17 PM CDT) Pathologist [facility] Lipase, S 44 13 - 60 U/L 12/28/2024 6: 02 PM CDT DTL Blood (Blood, Venous) 12/28/2024 5:17 PM CDT 12/28/2024 5:44 PM CDT Deysi Garcia P.A.-C., M.S. LAB BLOOD ADD-ON Final Result Performing Organization Address City/[facility] Co de Phone Number [facility] [address] DTL [facility] [address] [place] [address] * (ABNORMAL) Prothrombin Time (PT) (12/28/2024 5:17 PM CDT) Prothrombin Time, P 15.7(H) 9.4 - 12.5 sec 12/28/2024 5:33 PM CDT [facility]4 0.9 - 1.1 12/28/2024 5:33 PM CDT [facility] Comment: ----ADDITIONAL INFORMATION---- Standard intensity warfarin therapeutic range: 2.0 to 3.0 High intensity warfarin therapeutic range: 2.5 to 3.5 Blood (Blood, Venous) 12/28/2024 5:17 PM CDT 12/28/2024 5:24 PM CDT Deysi Garcia P.A.-C., M.S. LAB BLOOD ADD-ON Final Result Performing Organization Address City/[facility] Co de Phone Number [facility] [address] [place] [address], [facility] [address] [place] [address] * (ABNORMAL) Hepatic Function Panel (12/28/2024 5:17 PM CDT) Bilirubin, Total, S 15.9(H) 0.0 - 1.2 mg/dL 12/28/2024 6:02 PM CDT DTL Bilirubin, Direct, S 13.7(H) 0.0 - 0.3 mg/dL 12/28/2024 6:34 PM CDT DTL Aspartate Aminotransferase (AST), S 300(H) 8 - 48 U/L 12/28/2024 6:02 PM CDT DTL Alanine Aminotransferase (ALT), S 98(H) 7 - 55 U/L 12/28/2024 6:02 PM CDT DTL Alkaline Phosphatase, S 213(H) 40 - 129 U/L 12/28/2024 6:02 PM CDT DTL Albumin, S 2.8(L) 3.5 - 5.0 g/dL 12/28/2024 6:02 PM CDT DTL Protein, Total, S 6.5 6.3 - 7.9 g/dL 12/28/2024 6:02 PM CDT DTL Blood (Blood, Venous) 12/28/2024 5:17 PM CDT 12/28/2024 5:44 PM CDT us Deysi Garcia P.A.-C., M.S. LAB BLOOD ADD-ON Final Result [place] [address] [place] [address], [facility] [place] [address] [place] [address] * (ABNORMAL) Basic Metabolic Panel (12/28/2024 5:17 PM CDT) Potassium, P 3.8 3.6 - 5.2 mmol/L 12/28/2024 5:41 PM CDT [facility] Sodium, P 127(L) 135 - 145 mmol/L 12/28/2024 5:41 PM CDT [facility] Chloride, P 95(L) 98 - 107 mmol/L 12/28/2024 5:41 PM CDT [facility] Bicarbonate, P 20(L) 22 - 29 mmol/L 12/28/2024 5:41 PM CDT [facility] Anion Gap, P 12 7 - 15 12/28/2024 5:41 PM CDT [facility] BUN (Blood Urea Nitrogen), P 6(L) 8 - 24 mg/dL 12/28/2024 5:41 PM CDT [facility] Creatinine 0.53(L) 0.74 - 1.35 mg/dL 12/28/2024 6:45 PM CDT DTL Estimated GFR (eGFR) >90 >=60 mL/min/BSA 12/28/2024 6:45 PM CDT DTL Comment: Estimated GFR calculated using the 2020 CKD_EPI creatinine equation. Calcium, Total, P 8.2(L) 8.6 - 10.0 mg/dL 12/28/2024 5:41 PM CDT STMA Glucose, P 108 70 - 140 mg/dL 12/28/2024 5:41 PM CDT [facility] Blood (Blood, Venous) 12/28/2024 5:17 PM CDT 12/28/2024 5:24 PM CDT Deysi Garcia P.A.-C., M.S. LAB BLOOD ADD-ON Final Result [facility] [address] [place] [address], [facility] STMA [facility] [address] [place] [address] DTL [facility] [address] [place] [address] * (ABNORMAL) CBC with Differential, Blood (12/28/2024 5:17 PM CDT) Pathologist [facility] Hemoglobin 13.1(L) 13.2 - 16.6 g/dL 12/28/2024 5:27 PM CDT STMA Hematocrit 37.8(L) 38.3 - 48.6 % 12/28/2024 5:27 PM CDT [facility]MA Erythrocytes 3.91(L) 4.35 - 5.65 x10(12)/L 12/28/2024 5:27 PM CDT [facility] MCV 96.7 78.2 - 97.9 fL 12/28/2024 5:27 PM CDT [facility] RBC Distrib Width 18.8(H) 11.8 - 14.5 % 12/28/2024 5:27 PM CDT [facility] Platelet Count 412(H) 135 - 317 x10(9)/L 12/28/2024 5:27 PM CDT [facility] Leukocytes 12.5(H) 3.4 - 9.6 x10(9)/L 12/28/2024 5:27 PM CDT [facility] Neutrophils 10.02(H) 1.56 - 6.45 x10(9)/L 12/28/2024 6:17 PM CDT [facility] Comment:Rechecked Lymphocytes 0.96 0.95 - 3.07 x10(9)/L 12/28/2024 6:17 PM CDT [facility]MA Monocytes 1.25(H) 0.26 - 0.81 x10(9)/L 12/28/2024 6:17 PM CDT [facility] Eosinophils 0.14 0.03 - 0.48 x10(9)/L 12/28/2024 6:17 PM CDT [facility] Basophils 0.12(H) 0.01 - 0.08 x10(9)/L 12/28/2024 6:17 PM CDT [facility] Blood (Blood, Venous) 12/28/2024 5:17 PM CDT 12/28/2024 5:24 PM CDT Deysi Garcia P.A.-C., M.S. LAB BLOOD ADD-ON Final Result Performing Organization Address City/State/[facility] Co de Phone Number [facility] [address] [place] [address], [facility] STMA [facility] [address] [place] [address] documented in this encounter Visit Diagnoses Diagnosis Hyperbilirubinemia- Primary Hyperbilirubinemia Jaundice Hyponatremia documented in this encounter Admitting Diagnoses Diagnosis Hyperbilirubinemia documented in this encounter Administered Medications Inactive Administered Medications - up to 3 most recent administrations Medication Order MAR Action Action Date Dose Rate Site diphenhydrAMINE capsule 25 mg (BenadryL) 25 mg, oral, Every 6 hours PRN, itching, Starting on Wed12/29/24 at 0301 heparin (porcine) injection 5,000 Units 5,000 Units, subcutaneous, Every 8 hours scheduled, First dose on Wed12/29/24 at 0600 Given 12/31/2024 5:56 AM CDT 5,000 Units Right Lower Abdomen Given 12/30/2024 9:39 PM CDT 5,000 Units R ight Upper Abdomen Given 12/30/2024 2:34 PM CDT 5,000 Units R ight Lower Abdomen iohexoL 300 mg iodine/mL solution 1-200 mL (Omnipaque) 1-200 mL, intravenous, Once in imaging, contrast, Starting on [facility] 12/28/24 at 1928, For 1 dose, Imaging Protocol Orders, Dose per Radiant Medication Guidelines Given 12/28/2024 7:30 PM CDT 200 mL lidocaine 10 mg/mL (1 %) injection (Xylocaine) As needed, Starting on Wed12/29/24 at 1633, Intra-Op Given 12/29/2024 4:33 PM CDT 10 mL Right Lower Abdomen multivitamin/mineral-prenata l tablet 1 tablet 1 tablet, oral, Daily, First dose on Wed12/29/24 at 0900 Given 12/30/2024 8:10 AM CDT 1 tablet Given 12/29/2024 9:23 AM CDT 1 tablet NaCl 0.9 % bolus 1,000 mL 1,000 mL, intravenous, at 1,000 mL/hr, Administer over 1 Hours, Once, On [facility] 12/28/24 at 1829, For 1 dose New Bag 12/28/2024 6:38 PM CDT 1,000 mL 1000 mL/hr [id number] 280-160-250 mg per packet 1 packet (Phos-NaK) 1 packet, oral, Every 4 hours while awake, First dose on Wed12/29/24 at 0600, For 4 doses, Mix each packet in 75 mL water or juice then administer ordered dose. 250 mg of phosphate is equivalent to 8 mmol of phosphate., Monitor the following for replacement: Phosphorus Given 12/29/2024 4:58 PM CDT 1 packet Given 12/29/2024 2:43 PM CDT 1 packet Given 12/29/2024 9:23 AM CDT 1 packet sodium chloride (PF) 0.9 % injection 1-100 mL 1-100 mL, intravenous, Once, On [facility] 12/28/24 at 1929, For 1 dose, Imaging Protocol Orders, Dose per Radiant Medication Guidelines Given 12/28/2024 7:30 PM CDT 50 mL sodium chloride 0.9 % injection 3 mL 3 mL, intravenous, Every 12 hours scheduled, First dose on Wed12/29/24 at 0900, Peripheral Intravenous Catheter and Rapid Infusion Catheter, when no infusion to maintain patency Given 12/30/2024 8: 13 PM CDT 3 mL Given 12/30/2024 8:10 AM CDT 3 mL Given 12/29/2024 10:59 PM CDT 3 mL thiamine injection 100 mg (Vitamin B-1) 100 mg, intravenous, Once, On Wed12/29/24 at 0116, For 1 dose Given 12/29/2024 2:14 AM CDT 100 mg documented in this encounter Active and Recently Administered Medications Times are shown in CDT. Scheduled Medication Order 12/29/2024 12/30/2024 12/31/2024 heparin (porcine) injection 5,000 Units 5,000 Units, subcutaneous, Every 8 hours scheduled, First dose on Wed12/29/24 at 0600 0624 (Given - Provider: Tawana Vega R.N.)1443 (Given - Provider: Jaden Cano R.N.)2257 (Given - Provider: Erika Elizalde R.N.) 0615 (Given - Provider: Erika Elizalde R.N.)1434 (Given - Provider: Jaden Cano R.N.)2139 (Given - Provider: Erika Elizalde R.N.) 0556 (Given - Provider: Erika Elizalde R.N.) multivitamin/mineral-p renatal tablet 1 tablet 1 tablet, oral, Daily, First dose on Wed12/29/24 at 0900 0923 (Given - Provider: Jaden Cano R.N.) 0810 (Given - Provider: Jaden Cano R.N.) [id number] hate 280-160-250 mg per packet 1 packet (Phos-NaK) (COMPLETED) 1 packet, oral, Every 4 hours while awake, First dose on Wed12/29/24 at 0600, For 4 doses, Mix each packet in 75 mL water or juice then administer ordered dose. 250 mg of phosphate is equivalent to 8 mmol of phosphate., Monitor the following for replacement: Phosphorus 0624 (Given - Provider: Tawana Vega R.N.)0923 (Given - Provider: Jaden Cano R.N.)1443 (Given - Provider: Jaden Cano R.N.)1658 (Given - Provider: Kassidy Shetty R.N.) sodium chloride 0.9 % injection 3 mL 3 mL, intravenous, Every 12 hours scheduled, First dose on Wed12/29/24 at 0900, Peripheral Intravenous Catheter and Rapid Infusion Catheter, when no infusion to maintain patency 0924 (Given - Provider: Jaden Cano R.N.)2259 (Given - Provider: Erika Elizalde R.N.) 08 (Given - Provider: Jaden Cano R.N.)2012 (Given - Provider: Erika Elizalde R.N.) thiamine injection 100 mg (Vitamin B-1) (COMPLETED) 100 mg, intravenous, Once, On Wed12/29/24 at 0116, For 1 dose 0214 (Given - Provider: Tawana Vega R.N.) PRN Medication Order 12/29/2024 12/30/2024 12/31/2024 diphenhydrAMINE capsule 25 mg (BenadryL) 25 mg, oral, Every 6 hours PRN, itching, Starting on Wed12/29/24 at 0301 lidocaine 10 mg/mL (1 %) injection (Xylocaine) (COMPLETED) As needed, Starting on Wed12/29/24 at 1633, Intra-Op 1633 (Given - Provider: Gurpreet Loomis Jr., M.D.) sodium chloride 0.9 % injection 10 mL 10 mL, intravenous, As needed, line care, Starting on Wed12/29/24 at 0107, Peripheral Intravenous Catheter and Rapid Infusion Catheter, prior to blood sampling, post blood transfusion or post blood sampling sodium chloride 0.9 % injection 3 mL 3 mL, intravenous, As needed, line care, Starting on Wed12/29/24 at 0107, Prior to and following infusion and between multiple consecutive infusions: sodium chloride 0.9 % injection documented in this encounter Care Teams [employer] Relationship Specialty Start Date End Date Elsewhere, Pcp PCP - General Internal Medicine 02/10/22 documented as of this encounter
--- OUTSIDE RECORDS SUMMARY | 2025-01-24 00:33 | XMS_ITS | Clinical Summary ---
Author Organization [facility] Address [address] [place] [address] Care Team Providers Care Pineapple Plantation Manager Name Role Phone Elsewhere, Pcp Primary Care Provider Unavailabl e Source Comments Patient records contain information from all sites at [facility]. For routine questions regarding patient records, call [phone] during business hours, M-F 8:00 AM - 5:00 PM Central Time. Record requests for emergency care only can be directed to [phone] at any time.[facility] Allergies No known active allergies Medications [...] 12/31/2024 Clinical Communication Division of Gastroenterology in [place], [place] [address] [place] [phone] Evon Colby M.D. 12/29/2024 Clinical Communication [facility] [address] [place] [phone] Nate Pinto M.D. 12/28/2024 4:48 PM CDT - 12/31/2024 8:07 AM CDT Hospital Encounter [facility], [facility], Third Floor [address] [place] [phone] Jeanine Thompson P.A.-C., M.S. Regi Mcadams APRN [...] alcohol) Detox for withdrawal 02/08/2022 [facility] dianboomities Answer Date Recorded In the past 12 months has [facility] [email or web address], gas, oil, or water [place] threatened to shut off services in your [...] your living situation today? I have a [facility] place to live 12/29/2024 Sex and Gender [...] 12/29/2024 12:08 AM CDT Plan of Treatment Health Maintenance Due Date Last Done Comments HIV Screening 1992 DTaP,Tdap,and Td Vaccines (1 - Tdap) 02/21/2011 COVID-19 Vaccine (2023-2 5 season) 2024 Influenza Vaccine (#1) 2024 Depression Screening (Annual PHQ-2) 08/02/2024 Hepatitis B Vaccines (2 of 3 - 19+ 3-dose series) 02/19/2025 01/22/2025 Hepatitis B Screening Discontinued 11/25/2021 HPV Vaccines [...] AM CDT PROTHROMBIN TIME (PT), P Routine 025 9:00 AM CDT HEPATIC FUNCTION PANEL, S [...] PANEL, S Routine 2024 10:16 AM CDT [id number], S Routine 10:16 AM CDT CERULOPLASMIN, S Routine 12/29/2024 10:16 AM CDT MITOCHONDRIAL ABS (M2), S Routine 2024 10:16 AM CDT IMMUNOGLOBULIN G (IGG), S Routine 2024 10:16 AM CDT FERRITIN, S Routine 12/29/2024 10:16 AM CDT IRON AND TOT IRON-BINDING CAPACITY, S/P Routine 12/29/2024 10:16 AM CDT SMOOTH MUSCLE ABS, S Routine 12/29/2024 10:16 AM CDT ANTINUCLEAR ABS (EMANUEL), S Routine 10:16 AM CDT CBC WITH DIFFERENTIAL, B Routine 10:16 AM CDT BASIC METABOLIC PANEL, S/P [...] M.D. LAB BLOOD ADD-ON Final Resu lt [address] [address], [place] [address] * (ABNORMAL) Prothrombin Time (PT) (12/30/2024 9:00 [...] LAB BLOOD ADD-ON Final Resu lt [facility] [address] [place] [address], [place] D[place] [facility] [address] [place] [address] * (ABNORMAL) CBC with Differential, Blood (12/30/2024 9:00 AM CDT) Only the most recent of3 resultswithin the time period is included. Hemoglobin 12.7(L) 13.2 - 16.6 g/dL 12/30/2024 [...] - 6.45 x10(9)/L 12/30/2024 11:04 AM CDT DH Comment:Rechecked Lymphocytes 0.88(L) 0.95 - 3.07 x10(9)/L [...] Resu lt [facility] [address] [place] [address], [place] DTL [facility] [address] [place] [address] [facility] 200 [place] [address] * (ABNORMAL) Basic Metabolic Panel (12/30/2024 9:00 AM CDT) Only the most recent of3 resultswithin the time period is included. Pathologist [facility] Potassium, S 4.2 3.6 - 5.2 mmol/L [...] ADD-ON Final Resu lt Performing Organization Address [facility] Co de Phone Number [facility] [address] DTL [facility] 200 [place] [address] * Lactate for Sepsis with Reflex (12/29/2024 6:34 PM CDT) Pathologist [facility] Lactate, P 1.7 0.5 - 2.2 mmol/L 12/29/2024 7:02 PM CDT [facility] Blood (Blood, Venous) 12/29/2024 6:34 PM CDT 12/29/2024 6:40 PM CDT us Janki Perkins M.D. LAB BLOOD NON ADD-ON Final Result Performing Organization Address [facility] de Phone Number [facility] [address] STMA [facility] 200 [place] [address] * Bacteria / Avril Culture, Blood #2 [...] LAB MICROBIOLOGY - GENERAL ORDERABLES Final Result [facility] [address] [place] [address], [place] DTL [facility] [address] [place] [address] * US Paracentesis with Imaging Guidance (12/29/2024 [...] Result [facility] [address] [place] [address], [place] D[place] [facility] [address] [place] [address] * Cell Count and Differential, Body Fluid (12/29/2024 4:15 PM CDT) Fluid Type Peritoneal /Paracente sis 12/29/2024 5:54 PM CDT DHPM Gross Appearance Serous 12/30/19 5:54 PM CDT DHPM Total Nucleated Cells 220 /mcL 12/29/2024 5:54 PM CDT DHPM Comment: ----REFERENCE VALUE---- Synovial: <150 /mcL Peritoneal: <500 /mcL Pleural: <500 /mcL Pericardial: <500 /mcL ----ADDITIONAL INFORMATION---- This test has been modified from the oil filters inspector's instructions. Its performance characteristics were determined by [facility] in a manner consistent with CLIA requirements. This test has not been cleared or approved by the U.S. Food and Drug Administration. Neutrophils 3 % 12/29/2024 9:11 PM CDT [facility] Comment: ----REFERENCE VALUE---- Synovial: <25% Peritoneal: <25% Pleural: <25% Pericardial: <25% Lymphocytes 6 Synovial <75% % 12/29/2024 9:11 PM CDT DHPM Monocytes/Macropha ges 90 Synovial <70% % 12/29/2024 9:11 PM CDT DHPM Other Cells 1 % 12/29/2024 9:11 PM CDT PM Comment: ----REFERENCE VALUE---- The reference range and [...] Reviewed by: Ina 12/29/2024 9:11 PM CDT [facility] Fluid (Peritoneal Fluid) 12/29/2024 4:15 PM CDT Janki Perkins M.D. LAB BODY FLUIDS AND STOOLS ORDERABLES Final Result [facility] [address] [place] [address], [facility] [address] [place] [address] * Phosphatidylethanol Confirmation (12/29/2024 11:10 AM CDT) PEth 16:0/18:1 (POPEth) by LC-MS/MS 457 Cutoff: 10 ng/mL 12/31/2024 2:16 PM CDT [facility] Comment: Phosphatidylethanol (PEth) homologues result interpretation [...] Cutoff: 10 ng/mL 12/31/2024 2:16 PM CDT [facility] Comment: PEth 16:0/18:2 (PLPEth) Reference ranges are not well established PEth Interpretation Positive. 12/31 2:16 PM CDT [facility] Comment: ----ADDITIONAL INFORMATION---- This report is intended for use in clinical monitoring and management of patients. It is not intended for use in employment-related testing. This test was developed and its performance characteristics determined by [facility] in a manner consistent with CLIA requirements. This test has not been cleared or approved by the U.S. Food and Drug Administration. Blood (Blood, Venous) 12/29/2024 11:10 AM CDT 12/29/2024 12:47 PM CDT Camilla Beth M.D. LAB BLOOD ADD-ON Final Result [facility] [place] [address] [place] [address] [facility] [address] [place] [address] [place] [address] * (ABNORMAL) Lipid Panel (12/29/2024 10:16 AM [...] Ph.D. LAB BLOOD ADD-ON Final Result [facility] [address] [place] [address], [address] [facility] [address] [place] [address] * (ABNORMAL) Iron and Total Iron-Binding Capacity [...] Result [facility] [address] [place] [address], [address] [facility] [facility] [address] [place] [address] * (ABNORMAL) Rkiqs-4-Wluduqxiuzr (12/29/2024 10:16 AM CDT) Uzpze-5-Gieofom psin, S 239(H) 100 - 190 mg/dL 12/29/2024 4:10 PM CDT [facility] Blood (Blood, Venous) 12/29/2024 10:16 AM CDT 12/29/2024 2:54 PM CDT Kassi Pascual M.D., Ph.D. LAB BLOOD ADD-ON Final Result Performing Organization Address City/[facility]/ZIP Co de Phone Number [facility] [address] [place] [address] [facility] [address] [place] [address] * (ABNORMAL) Ceruloplasmin (12/29/2024 10:16 AM CDT) Ceruloplasmin, S 39.7(H) 19.0 - 31.0 mg/dL 12/29/2024 1:30 PM CDT [facility] Blood (Blood, Venous) 12/29/2024 10:16 AM CDT 12/29/2024 11:43 AM CDT Kassi Pascual M.D., Ph.D. LAB BLOOD ADD-ON Final Result Performing Organization Address City/[facility]/ZIP Co de Phone Number [facility] [address] [place] [address], [place] D[place] [facility] [address] [place] [address] * Mitochondrial Antibodies (M2) (12/29/2024 10:16 AM CDT) Pathologist [facility] Mitochondrial Ab, M2, S <0.1 <0.1 (Negative) U 12/29/2024 6:43 PM CDT [facility] Blood (Blood, Venous) 12/29/2024 10:16 AM CDT 12/29/2024 12:59 PM CDT Kassi Pascual M.D., Ph.D. LAB BLOOD ADD-ON Final Result Performing Organization Address [facility]/ZIP Co de Phone Number [facility] [address] [place] [id number] [place] [address] [place] [address] * Smooth Muscle Antibodies (12/29/2024 10:16 AM CDT) [facility] Smooth Muscle Ab Screen, S Negative Negative 12/30/2024 10:42 AM CDT [facility] Comment: Negative: No further testing will be performed ----ADDITIONAL INFORMATION---- This test was developed and its performance characteristics determined by [facility] in a manner consistent with CLIA requirements. This test has not been cleared or approved by the U.S. Food and Drug Administration. Blood (Blood, Venous) 12/29/2024 10:16 AM CDT 12/29/2024 12:54 PM CDT Kassi Pascual M.D., Ph.D. LAB BLOOD ADD-ON Final Result Performing Organization Address City/[facility]/ZIP Co de Phone Number [facility] [address] [place] [address] [facility] [address] [place] [facility] [place] [address] * (ABNORMAL) EMANUEL (Antinuclear Antibodies) (12/29/2024 10:16 AM CDT) [facility] Antinuclear Ab, S 2.1(H) <=1.0 (Negative) U 12/29/2024 7:34 PM CDT [facility] Comment: Interpretation: Weak Positive (1.1-2.9) ----ADDITIONAL INFORMATION---- Method: Enzyme-linked immunoassay using HEp-2 nuclear extract supplemented with purified antigens. Blood (Blood, Venous) 12/29/2024 10:16 AM CDT 12/29/2024 12:58 PM CDT Kassi Pascual M.D., Ph.D. LAB BLOOD ADD-ON Final Result [facility] [address] [place] [address] [facility] [address] [place] [address] * (ABNORMAL) Phosphorus Inorganic (12/29/2024 10:16 AM CDT) Only the most recent of2 resultswithin the time period is included. Pathologist [facility] Phosphorus (Inorganic), S 1.7(L) 2.5 - 4.5 mg/dL 12/29/2024 11:27 AM CDT [facility] Blood (Blood, Venous) 12/29/2024 10:16 AM CDT 12/29/2024 11:01 AM CDT Kassi Pascual M.D., Ph.D. LAB BLOOD ADD-ON Final Result Performing Organization Address City/[facility]/ZIP Co de Phone Number [facility] [address] [place] [address], [place] [facility] [address] [place] [address] * (ABNORMAL) Immunoglobulin G (IgG) (12/29/2024 10:16 AM CDT) Immunoglobulin G (IgG), S 1780(H) 767 - 1590 mg/dL 12/29/2024 4:04 PM CDT [facility] Blood (Blood, Venous) 12/29/2024 10:16 AM CDT 12/29/2024 1:44 PM CDT Kassi Pascual M.D., Ph.D. LAB BLOOD ADD-ON Final Result [facility] [address] [place] [address] [facility] [address] [place] [address] * (ABNORMAL) Ferritin (12/29/2024 10:16 AM CDT) Ferritin, S 417(H) 31 - 409 mcg/L 12/29/2024 11:27 AM CDT DT Blood (Blood, Venous) 12/29/2024 10:16 AM CDT 12/29/2024 10:49 AM CDT Kassi Pascual M.D., Ph.D. LAB BLOOD ADD-ON Final Result Performing Organization Address City/[facility]/ZIP Co de Phone Number [facility] [address] [place] [address], [address] [facility] [facility] [address] [place] [address] * HBs Antigen Scrn, Serum (12/29/2024 10:15 AM CDT) [facility] HBs Antigen Scrn, S Negative Negative 12/29/2024 1:48 PM CDT [facility] Blood (Blood, Peripheral Draw) 12/29/2024 10:15 AM CDT 12/29/2024 1:04 PM CDT us Kassi Pascual M.D., Ph.D. LAB MICROBIOLOGY - BLOOD ORDERABLES Final Result [facility] [address] [place] [address] [facility] [address] [place] [place] [address] * HCV Ab w/Reflex to HCV PCR, Serum (12/29/2024 10:15 AM CDT) Pathologist [facility] HCV Ab, S Negative Negative 12/29/2024 1:48 PM CDT [facility] Comment: Consumption of high-dose biotin supplement within 12 hours of blood collection for this test can cause false-negative results. Blood (Blood, Venous) 12/29/2024 10:15 AM CDT 12/29/2024 1:04 PM CDT Kassi Pascual M.D., Ph.D. LAB MICROBIOLOGY - BLOOD ORDERABLES Final Result Performing Organization Address [facility] Co de Phone Number [facility] [address] [place] [address] [facility] [address] [place] [address] * Hepatitis A IgM Ab, Serum (12/29/2024 10:15 AM CDT) [facility] Hepatitis A IgM Ab, S Negative Negative 12/29/2024 1:48 PM CDT [facility] Comment: This result does not exclude [...] [facility]/ZIP Co de Phone Number [facility] [address] [place] [address] [facility] [address] [place] [address] * Hepatitis B Core IgM Ab (12/29/2024 10:15 AM CDT) Pathologist [facility] HBc IgM Ab, S Negative Negative 12/29/2024 1:48 PM CDT [facility] Comment: Consumption of high-dose biotin supplement within 12 hours of blood collection for this test can cause false-negative results. Blood (Blood, Peripheral Draw) 12/29/2024 10:15 AM CDT 12/29/2024 1:04 PM CDT Kassi Pascual M.D., Ph.D. LAB MICROBIOLOGY - BLOOD ORDERABLES Final Result Performing Organization Address [facility]/ZIP Co de Phone Number [facility] [address] [place] [address] [facility] [address] [place] [address] * Hemoglobin A1c (12/29/2024 10:15 AM CDT) Pathologist [facility] Hemoglobin A1c, B 4.8 4.0 - 5.6 % 12/29/2024 11:08 AM CDT DTL Blood (Blood, Venous) 12/29/2024 10:15 AM CDT 12/29/2024 10:37 AM CDT Kassi Pascual M.D., Ph.D. LAB BLOOD ADD-ON Final Result Performing Organization Address [facility] Co de Phone Number [facility] [address] [place] [address] * Acetaminophen Level (12/29/2024 9:50 AM CDT) Pathologist [facility] Acetaminophen, S <7 Therapeutic Range: 10-30 mcg/mL 12/29/2024 12:27 PM CDT DTL Blood (Blood, Venous) 12/29/2024 9:50 AM CDT 12/29/2024 12:02 PM CDT Camilla Beth M.D. LAB BLOOD ADD-ON Final Result Performing Organization Address City/[facility]/ZIP Co de Phone Number [facility] [address] [facility] 200 [place] [address] * Ethanol Level, Serum (12/28/2024 11:42 PM CDT) [facility] Ethanol, S <10 <10 mg/dL 12/29/2024 12:24 AM CDT DTL Blood (Blood, Venous) 12/28/2024 11:42 PM CDT 12/29/2024 12:13 AM CDT Jeanine Thompson P.A.-C., M.S. LAB BLOOD NON ADD -ON Final Result Performing Organization Address City/[facility]/ZIP Co de Phone Number [facility] [address] [place] [address] * (ABNORMAL) Magnesium (12/28/2024 11:42 PM CDT) [facility] Magnesium, P 2.4(H) 1.7 - 2.3 mg/dL 12/29/2024 12:16 AM CDT DT Blood (Blood, Venous) 12/28/2024 11:42 PM CDT 12/28/2024 11:52 PM CDT Regi Mcadams APRN C.N.P., D.N.P., M.S.N. LAB BLO OD ADD-ON Final Result [facility] [address] [place] [address] * Lactate (12/28/2024 11:42 PM CDT) [facility] Lactate, P 1.0 0.5 - 2.2 mmol/L 12/29/2024 12:17 AM CDT DTL Blood (Blood, Venous) 12/28/2024 11:42 PM CDT 12/28/2024 11:52 PM CDT us Regi Mcadams APRN, Edilberto.N.P., D.N.P., M.S.N. LAB BLO OD NON ADD-ON Final Result [facility] [address] [place] [address], [place] D[place] [facility] [address] [place] [address] * US Liver with Liver Doppler (12/28/2024 [...] known liverparenchymal disease/cirrhosis. us Ivan Meléndez M.D. IM US PROCEDURES Ann l Result * CT [...] lesions. Lung bases are clear. Procedure Note Nikhil, Vikas Ibarra M.D. - 12/28/2024 EXAM: CT [...] (ABNORMAL) Lactate, B (12/28/2024 5:17 PM CDT) [facility] Lactate, B 2.6(H) 0.5 - 2.2 mmol/L 12/28/2024 5:[address] [facility] Blood (Blood, Venous) 12/28/2024 5:17 PM CDT 12/28/2024 5:24 PM CDT Deysi Garcia P.A.-C., M.S. LAB BLOOD NON ADD -ON Final Result [facility] [address] [place] [address], [facility] [address] [place] [address] * Lipase (12/28/2024 5:17 PM CDT) Pathologist [facility] Lipase, S 44 13 - 60 U/L 12/28/2024 6: 02 PM CDT DTL Blood (Blood, Venous) 12/28/2024 5:17 PM CDT 12/28/2024 5:44 PM CDT Deysi Garcia P.A.-C., M.S. LAB BLOOD ADD-ON Final Result [facility] [address] [place] [address], [place] D[place] [facility] [address] [place] [address] from Last 3 Months Insurance [employer] Advance Directives For more information, please contact: [phone] * Full Code (Latest Code Status on File) Date Activated Date Inactivated Comments 12/29/2024 1:11 AM 12/31/2024 10:12 AM Question Answer Comments Full Code: Discussed Care Teams [employer] Plant[employer] Manager Relationship Specialty Start Date End Date Elsewhere, Pcp PCP - General Internal Medicine 02/10/22
--- OUTSIDE RECORDS SUMMARY | 2025-01-24 00:33 | XMS_ITS | Encounter Summary ---
Author Organization [facility] Address [address] [place] [address] Care Team Providers Care Bakery Sales Clerk Name Role Phone Elsewhere, Pcp Primary Care Provider Unavailabl e Encounter Details Date Type Department Care Team (Latest Contact Info) Description 12/31/2024 Clinical Communication Division of Gastroenterology in [place], [place] [address] [place] [phone] Evon Colby M.D. [address] [place] [phone] Social History Tobacco Use Types Packs/Day Years Used Date Smoking Tobacco: Never Smokeless Tobacco: Never Alcohol Use Standard Drinks/Week Comments Yes 84 (1 standard drink = 0.6 oz pure alcohol) Detox for withdrawal 02/08/2022 [facility] Utilities Answer Date Recorded In the past 12 months has [facility] [email or web address], gas, oil, or water T[employer] threatened to shut off services in your [...] your living situation today? I have a [facility] place to live 12/29/2024 Sex and Gender Information Value Date Recorded Sex Assigned at Not on file Legal Sex Male 12:18 PM CDT Gender Identity Not on file Sexual Orientation Not on file documented as of this encounter Plan of Treatment Not on file documented as of this encounter Visit Diagnoses Diagnosis Alcoholic Hepatitis Without Ascites (HCC)- Primary documented in this encounter Care Teams Bakery Sales Clerk Relationship Specialty Start Date End Date Elsewhere, Pcp PCP - General Internal Medicine 02/10/22 documented as of this encounter
--- OUTSIDE RECORDS SUMMARY | 2025-01-24 00:34 | XMS_ITS | Clinical Summary ---
Author Organization [facility] Address [address] [place] [address] Care Team Providers Care Beauty Therapist Name Role Phone Vikas Oliver MD Primary Care P rovider Allergies No known active allergies Medications cholestyramine 4 gram powdIndications:E levated bilirubin Mix 4 g in liquid then take by mouth 2 times daily if needed (Use 4g 1-2x per day as needed for itching). 231 g 01/06/20 25 Active multivitamin no.36-folate no.6 1 mg chewIndications:H epatitis Chew 1 Each by mouth once daily. 01/06/20 25 Active thiamine 100 mg tabletIndications :Hepatitis Take 1 Tablet (100 mg) by mouth once daily. 01/06/20 25 Active pantoprazole 40 mg delayed-release tabletIndications :Varices, gastric,Alcoholic gastritis, presence of bleeding unspecified, unspecified chronicity Take 1 Tablet (40 mg) by mouth two times daily before meals. 60 Tablet 1 5 2:15 PM CDT 01/18/20 25 Active hydrocortisone 1 % creamIndications: External hemorrhoid, bleeding Apply topically to affected area(s) four times daily. 26 g 3 01/18/20 25 Active furosemide 20 mg tabletIndications :Alcoholic cirrhosis of liver with ascites (HC) Take 1 Tablet (20 mg) by mouth once daily in the morning. 30 Tablet 1 01/23/20 25 Active spironolactone 50 mg tabletIndications :Alcoholic cirrhosis of liver with ascites (HC) Take 1 Tablet (50 mg) by mouth once daily. 30 Tablet 1 01/23/20 25 Active sertraline (ZOLOFT) 50 mg tabletIndications :Current moderate episode of major depressive disorder, unspecified whether recurrent (HC),Anxiety Take 1 Tablet (50 mg) by mouth once daily. 30 Tablet 1 04/14/20 24 2024 Discontinued(* Med complete/Regim en complete/Level of care change) oxyCODONE (ROXICODONE) 5 mg immediate release tabletIndications :Right sided abdominal pain Take 1 Tablet (5 mg) by mouth every 6 hours if needed for Pain. 6 Tablet 09/11/19 25 2024 Discontinued(* Med complete/Regim en complete/Level of care change) ondansetron (ZOFRAN ODT) 4 mg disintegrating tabletIndications :RUQ pain Place 1 Tablet (4 mg) on the tongue every 8 hours if needed for Nausea/Vomit ing. 10 Tablet 10/12/19 25 2024 Discontinued(* Med complete/Regim en complete/Level of care change) hydrocortisone 1 % creamIndications: External hemorrhoid, bleeding Apply topically to affected area(s) four times daily. 26 g 3 01/18/20 25 2024 Discontinued Active Problems Problem Noted Date Diagnosed Date Leukocytosis 01/16/2025 Hepatic failure 01/16/2025 Overview (01/16/2025): 01/15/25 MELD 3.0: 25 Diarrhea 01/16/2025 Abdominal pain, LUQ 01/16/2025 Alcohol abuse 01/16/2025 Overview (01/16/2025): Reports no use since early 11/2024. 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, gastric 01/16/2025 Hematochezia 01/16/2025 Alcoholic hepatitis with ascites 01/16/2025 Portal hypertension 01/07/2025 Alcoholic cirrhosis of liver with ascites 2024 Resolved Problems Problem Noted Date Diagnosed Date Resolved Date Hyperbilirubinemia 12/28/2024 Elevated LFTs 12/27/2024 01/16/2025 New onset seizure 06/21/2024 01/16/2025 Fatty liver 06/21/2024 01/16/2025 Recurrent dislocation of right shoulder 04/25/2024 01/16/2025 Depression 04/14/2024 01/16/2025 Anxiety 04/14/2024 01/16/2025 Encounters Date Type Department Care Team Description 01/23/2025 E-Visit [facility] [address] [place] [address] Vikas Oliver MD Message about your results 01/22/2025 11:15 AM CDT Office Visit [address] [address] Vikas Oliver MD Hospital F/U ([facility]-01/17/25) 01/22/2025 Travel 01/18/2025 Patient Outreach [facility] [address] [place] [address] Ewelina Rowell, RN Primary RN Care Management; Hospital F/U ([facility]) 01/16/2025 Travel 01/15/2025 11:25 PM CDT - 01/17/2025 2:40 PM CDT Hospital Encounter [facility] [address] [place], [place] [id number] Devyn Mohr MD Caldwell, Robert Del, MD External hemorrhoid, bleeding (Primary Dx); Varices, gastric; Alcoholic gastritis, presence of bleeding unspecified, unspecified chronicity Discharge Disposition: Home Self Care 01/15/2025 Refill [facility] [address] [place] [address] Vikas Oliver MD Refill Request (Cholestyramine Light) 01/15/2025 Telephone [facility] [address] [place], [place] [phone] Pema Madera MD Error-please disregard 01/15/2025 Telephone [facility] [address] [place] [address] Vikas Oliver MD Other (Sick) 01/14/2025 2:00 PM CDT Telemedicine [facility] [address] [place] [phone] Zora Moon NP Telehealth (/My stomach being bloated and my stool. /No vitals taken -virtual visit./) 01/09/2025 Nurse Triage [facility] [address] [place] [address] Vikas Oliver MD Leg Swelling 01/06/2025 4:18 PM CDT - 01/06/2025 9:13 PM CDT Emergency [facility] [address] [place] [address] Cal Love PA Cirrhosis of liver with ascites, unspecified hepatic cirrhosis type (HC) (Primary Dx); Hyperbilirubinemia Discharge Disposition: Home Self Care 01/06/2025 Travel 01/05/2025 1:00 PM CDT Office Visit [facility] [address] [place] [address] Vikas Oliver MD Hospital F/U (Yellow skin and eyes and itching 12/28-12/31/24) 01/05/2025 Travel 12/27/2024 2:15 PM CDT Office Visit [facility] [address] [place] [address] Vikas Oliver MD Concerns (Eyes jaundice/itching skin) 12/27/2024 Travel 12/27/2024 Nurse Triage [facility] [address] [place] [address] Josie Munoz, Jaundice 10/27/2024 Telephone [facility] [address] [place] [address] Josie Munoz, Questions (Paperwork) from Last 3 Months Immunizations Immunization Administration Dates Next Due Hepatitis B (Adult) 01/22/2025 Family History Medical History Relation Name Comments Diabetes type II Father Hypertension Father Relation Name Status Comments Father Social History Tobacco Use Types Packs/Day Years Used Date Smoking Tobacco: Never Smokeless Tobacco: Never Tobacco Cessation:Counseling Given: Yes Alcohol Use Standard Drinks/Week Comments Not Currently 0 (1 standard drink = 0.6 oz pur e alcohol) last drink early November 2024 PHQ-2 Answer Date Recorded PHQ-2 TOTAL SCORE 2 04/06/2024 Social Connections Answer Date Recorded Do you often feel lonely or isolated from those around you? 0 01/16/2025 Financial Resource Strain Answer Date R ecorded Difficulty of Paying Living Expenses 3 04/06/2024 Difficulty of Paying Living Expenses Not on file 04/06/2024 Food Insecurity Answer Date Recorded Do you worry your food will run out before you are able to buy more? 1 01/16/2025 Transportation Needs Answer Date Record ed Does lack of transportation keep you from medica l appointments? 1 01/16/2025 Does lack of transportation keep you from work, meetings or getting things that you need? 1 01/16/2025 Housing Stability Answer Date Recorded What is your housing situation today? 1 01/16/2025 Interpersonal Safety Answer Date Record ed Are you being hit, kicked, p ushed or yelled at (see row info)? No 01/16/2025 Interpersonal Safety Abuse 12 - 18 Not on file 01/16/2025 Interpersonal Safety Ambulatory Vulnerability No t on file 01/16/2025 Utilities Answer Date Recorded Do you have trouble paying f or utilities (for example, heat, electricity, water, phone)? 1 01/16/2025 Sex and Gender Information Value Date Recorded Sex Assigned at Male 10/11/2024 10:03 AM CDT Legal Sex Male 6:11 AM CDT Gender Identity Male 10/11/2024 10:03 AM CDT Sexual Orientation Straight 10/11/2024 10 :03 AM CDT Obstetrics History Last Filed Vital Signs Vital Sign Reading Time Taken Comments Blood Pressure 116/72 01/22/2025 11:08 AM CDT Pulse 108 01/22/2025 11:08 AM CDT Temperature 36.7 C (98.1 F) 01/22/2025 11:08 AM CDT Respiratory Rate 16 01/17/2025 3:37 PM CDT Oxygen Saturation 99% 01/22/2025 11: 08 AM CDT Inhaled Oxygen Concentration - - Weight 123.1 kg (271 lb 6.4 oz) 025 11:08 AM CDT Height 167.6 cm (5' 6) 01/06/2025 4:28 PM CDT Body Mass Index 43.81 01/06/2025 4:28 PM CDT Plan of Treatment Upcoming Encounters Date Type Department Care Team (Late st Contact Info) Description 02/12/2025 10:50 AM CDT Office Visit [facility] [address] [place] [address] Vikas Oliver MD [address] [place] [address] Health Maintenance Due Date Last Done Comments Tdap 02/21/2003 HIV for age 15-65 02/21/2007 Pneumococcal series for age 6-49 (1 of 2 - PCV) 02/21/2011 Tetanus booster 2012 BMI (ht and wt on same day) for age 18+ 04/15/2022 04/15/2021, 02/13/2021 COVID-19 vaccine series (1 - 2023- season) 2024 Hepatitis B series for 19+ ( 2 of 3 - 19+ 3-dose series) 02/19/2025 01/22/2025 Influenza Vaccine (Season Ended) 2025 Depression screening for age 12+ 04/06/2025 04/06/2024, 11/28/2021, 11/27/2021, Additional history exists Hepatitis C screening for ag e 18-79 Completed 11/25/2021 Procedures Procedure Name Priority Date/Time Associated Diagnosis Comments CBC W PLT NO DIFF Routine 01/22/2025 12: 27 PM CDT Alcoholic cirrhosis of liver with ascites (HC) Portal hypertension (HC) COMP METABOLIC PANEL Routine 01/22/2025 12:27 PM CDT Alcoholic cirrhosis of liver with ascites (HC) Portal hypertension (HC) AFP TUMOR MARKER SERUM BONITA 8:09 AM CDT PROTIME-INR Early AM 01/17/2025 8:09 AM CDT HEPATIC FUNCTION PANEL Early AM 8:09 AM CDT HEMOGLOBIN Early AM 01/17/2025 8:09 AM CDT WHITE BLOOD COUNT Early AM 01/17/2025 8:0 9 AM CDT PHOSPHATIDYLETHANOL, BLOOD Early AM 01/17/2025 8:09 AM CDT SODIUM Today 01/16/2025 9:35 PM CDT CREATININE Today 01/16/2025 9:35 PM CDT POTASSIUM Today 01/16/2025 9:35 PM CDT STOOL PATHOGEN MULTIPLEX PCR PANEL Today 01/16/2025 2:55 PM CDT SCAN CORRESP-LABORATORY RESULTS 01/16/2025 2:36 PM CDT US ABDOMEN LIMITED ASCITES Routine 01/16/2025 11:19 AM CDT CLOSTRIDIOIDES DIFFICILE TOXIN PCR Today 01/16/2025 9:52 AM CDT AMMONIA Early AM 01/16/2025 7:01 AM CDT BASIC METABOLIC PANEL Early AM 01/16/2025 7:01 AM CDT CBC W PLT NO DIFF Early AM 01/16/2025 7:0 1 AM CDT HEPATIC FUNCTION PANEL Early AM 7:[address] ABDOMEN PELVIS W STAT 01/06/2025 7 [...] 5:20 PM CDT HEPATIC FUNCTION PANEL STAT 5:20 PM CDT CBC WITH AUTO DIFFERENTIAL STAT 01/06/2025 5:20 PM CDT BASIC METABOLIC PANEL STAT 01/06/2025 5:20 PM CDT EKG 12 LEAD STAT 01/06/2025 4:44 PM CDT HEPATIC FUNCTION PANEL Routine 3:10 PM CDT Fatty liver Jaundice LIPID PANEL Routine 12/27/2024 3:10 PM CDT Fatty liver PROTIME-INR Routine 12/27/2024 3:08 PM CDT Fatty liver Jaundice ANTI HCV Add On 11/25/2021 10:00 AM CDT Elevated liver enzymes from Last 3 Months or Most Recently Relevant to Health Maintenance Results * (ABNORMAL) CBC W PLT NO DIFF (01/22/2025 12:27 PM CDT) Only the most recent of2 resultswithin the time period is included. WHITE BLOOD CELL COUNT 22.2(H) 3.8 - 10.8 Thousand/u L [facility] RED BLOOD CELL COUNT 2.66(L) 4.20 - 5.80 Million/uL [facility] HEMOGLOBIN 9.2(L) 13.2 - 17.1 g/dL [facility] HEMATOCRIT 26.2(L) 38.5 - 50.0 % [facility] MCV 98.5 80.0 - 100.0 fL [facility] MCH 34.6(H) 27.0 - 33.0 pg [facility] MCHC 35.1 32.0 - 36.0 g/dL [facility] Comment: For adults, a slight decrease in the calculated MCHC value (in the range of 30 to 32 g/dL) is most likely not clinically significant; however, it should be interpreted with caution in correlation with other red cell parameters and the patient's clinical condition. RDW 15.7(H) 11.0 - 15.0 % [facility] PLATELET COUNT 438(H) 140 - 400 Thousand/u L [facility] MPV 10.1 7.5 - 12.5 fL [facility] Blood BLOOD SPECIMEN / Unknown 01/22/2025 12:27 PM CDT 01/22/2025 12:28 PM CDT Narrative [facility] - 01/23/2025 8:06 AM CDT FASTING:YES FASTING: YES us Vikas Oliver MD HEMATOLOGY Final Result [facility] [address] [place] [address], [facility] [address] [place] [address] * (ABNORMAL) COMP METABOLIC PANEL (01/22/2025 12:27 PM CDT) Pathologist [facility] GLUCOSE 89 65 - 99 mg/dL [facility] Comment: Fasting reference interval UREA NITROGEN (BUN) 11 7 - 25 mg/dL [facility] CREATININE 0.72 0.60 - 1.26 mg/dL [facility] EGFR 124 > OR = 60 mL/min/1. 73m2 [facility] BUN/CREATININE RATIO SEE NOTE: 6 - 22 (calc) [facility] Comment: Not Reported: BUN and Creatinine are within reference range. SODIUM 125(L) 135 - 146 mmol/L [facility] POTASSIUM 4.6 3.5 - 5.3 mmol/L [facility] CHLORIDE 97(L) 98 - 110 mmol/L [facility] CARBON DIOXIDE 20 20 - 32 mmol/L [facility] CALCIUM 8.1(L) 8.6 - 10.3 mg/dL [facility] PROTEIN, TOTAL 5.6(L) 6.1 - 8.1 g/dL [facility] ALBUMIN 2.4(L) 3.6 - 5.1 g/dL [facility] GLOBULIN 3.2 1.9 - 3.7 g/dL (calc) [facility] ALBUMIN/GLOBULIN RATIO 0.8(L) 1.0 - 2.5 (calc) [facility] BILIRUBIN, TOTAL 18.0(H) 0.2 - 1.2 mg/dL [facility] Comment: Verified by repeat analysis. ALKALINE PHOSPHATASE 164(H) 36 - 130 U/L [facility] AST 693(H) 10 - 40 U/L [facility] ALT 239(H) 9 - 46 U/L [facility] Blood BLOOD SPECIMEN / Unknown 01/22/2025 12:27 PM CDT 01/22/2025 12:28 PM CDT Narrative [facility] - 01/23/2025 8:06 AM CDT FASTING:YES FASTING: YES Vikas Oliver MD CHEMISTRY Final Result [facility] [address] [place] [address], [facility] [address] [place] [address] * PHOSPHATIDYLETHANOL, BLOOD (01/17/2025 8:09 AM CDT) Phosphatidylethanol Negative 01/21 4:07 PM CDT [facility] Phosphatidylethanol (PEth) Negative ng/mL 01/21/2025 4:07 PM CDT [facility] Comment: Analyzed compound: PEth 16:0/18:1. 7-[id number]-[id number]-gd-ibngonn-3-phosphoethanol. Analysis performed by Liquid Chromatography with Tandem Mass Spectrometry (LC/MS/MS). Detection limit: 20 ng/mL PEth levels in excess of 20 ng/mL are considered evidence of moderate to heavy ethanol consumption. However, the Center for Substance Abuse Treatment (CSAT) advises caution in interpretation and use of biomarkers alone to assess alcohol use. Results should be interpreted in the context of all available clinical and behavioral information. Reference: Substance Abuse and Mental Health Services Administration (2012). The Role of Biomarkers in the Treatment of Alcohol Use Disorders, 2012 Revision. Advisory, Volume 11, Issue 2. This test was developed and its performance characteristics determined by [employer]. It has not been cleared or approved by the Food and Drug Administration. Blood BLOOD SPECIMEN / Unknown Non-Lab Venipuncture / Unknown 01/17/2025 8:09 AM CDT 01/17/2025 8:17 AM CDT Narrative [facility] ([facility]) - 01/21/2025 4:07 PM CDT Performed at: - [facility] [address] [id number] Lens Cleaner: Ale Muro [facility], Phone: [phone] Luma Philippe MD SEND OUTS Final Result [facility] ([facility]) [address] [place] [address], [place] * (ABNORMAL) WBC AM (01/17/2025 8:09 AM CDT) WHITE BLOOD COUNT 17.6(H) 4.5 - 11.0 thou/cu mm 01/17/2025 8:35 AM CDT [facility] NRBC 0.0 % 01/17/2025 8:35 AM CDT [facility] ABS NRBC 0.0 thou /cu mm 01/17/2025 8:35 AM CDT [facility] Blood BLOOD SPECIMEN / Unknown Non-Lab Venipuncture / Unknown 01/17/2025 8:09 AM CDT 01/17/2025 8:17 AM CDT us Danny Cason MD HEMATOLOGY Final Res ult [facility] [address] [place] [address], [place] * (ABNORMAL) Hemoglobin AM (01/17/2025 8:09 AM CDT) HEMOGLOBIN 10.6(L) 13.5 - 17.5 g/dL 01/17/2025 8:35 AM CDT [facility] MCV 101(H) 80 - 100 fL 01/17/2025 8:35 AM CDT [facility] Blood BLOOD SPECIMEN / Unknown Non-Lab Venipuncture / Unknown 01/17/2025 8:09 AM CDT 01/17/2025 8:17 AM CDT Danny Cason MD HEMATOLOGY Final Res ult Performing Organization Address [facility] Co de Phone Number [facility] [address] [place] [address], [place] * (ABNORMAL) INR AM (01/17/2025 8:09 AM CDT) Only the most recent of3 resultswithin the time period is included. INR 2.0(H) <1.3 01/17/2025 8:38 AM CDT [facility] PROTIME 23.5(H) 10.6 - 12.4 sec 01/17/2025 8:38 AM CDT [facility] Blood BLOOD SPECIMEN / Unknown Non-Lab Venipuncture / Unknown 01/17/2025 8:09 AM CDT 01/17/2025 8:17 AM CDT Narrative [facility] - 01/17/2025 8:38 AM CDT Therapeutic Range 2.0-3.0 for most anticoagulated [...] seconds if the patient is on UFH. Danny Cason MD HEMATOLOGY Final Res ult Performing Organization Address [facility] Co de Phone Number [facility] [address] [place] [address], [place] * AFP TUMOR MARKER SERUM (01/17/2025 8:09 AM CDT) AFP TUMOR MARKER,SERUM 5.2 <=8.3 ng/mL 01/17/2025 10:47 AM CDT [facility] Blood BLOOD SPECIMEN / Unknown Non-Lab Venipuncture / Unknown 01/17/2025 8:09 AM CDT 01/17/2025 8:17 AM CDT [facility] - 01/17/2025 10:47 AM CDT The test method changed on 08/04/2022. If this test has been used for serial monitoring, rebaselining is recommended. Rebaselining consists of 2 measurements, collected 3-6 weeks apart. The [employer] Ele[employer]ys AFP assay is an electrochemiluminescence immunoassay ECLIA performed on the [employer]enia Winsome e immunoassy analyzers. Values obtained with different assay methods may be different and cannot be used interchangeably. Biotin supplements may cause clinically significant interference for this test assay. If interference is suspected, it is strongly recomended that biotin is discontinued for at least one week prior to retesting. Tamara Dennison NP SEND OUTS Final Result [facility] [address] [place] [address], * (ABNORMAL) Hepatic function panel AM (01/17/2025 8:09 AM CDT) Only the most recent of4 resultswithin the time period is included. ALBUMIN 2.4(L) 4.0 - 4.9 g/dL 01/17/2025 8:51 AM CDT [facility] PROTEIN,TOTAL 6.4 6.0 - 8.0 g/dL 01/17/2025 8:51 AM CDT [facility] BILIRUBIN,TOTAL 15.7(H) 0.0 - 1.2 mg/dL 01/17/2025 8:51 AM CDT [facility] BILIRUBIN,DIRECT 11.8(H) 0.0 - 0.2 mg/dL 01/17/2025 8:51 AM CDT [facility] BILIRUBIN,INDIRE CT 3.9(H) 0.2 - 0.8 mg/dL 01/17/2025 8:51 AM CDT [facility] ALK PHOSPHATASE 151(H) 40 - 129 IU/L 01/17/2025 8:51 AM CDT [facility] ALT (SGPT) 269(H) 10 - 50 IU/L 01/17/2025 8:51 AM CDT [facility] AST (SGOT) 673(H) 10 - 50 IU/L 01/17/2025 8:51 AM CDT [facility] Blood BLOOD SPECIMEN / Unknown Non-Lab Venipuncture / Unknown 01/17/2025 8:09 AM CDT 01/17/2025 8:17 AM CDT Danny Cason MD CHEMISTRY Final Res ult [facility] [address] [place] [address], [place] * (ABNORMAL) SODIUM (01/16/2025 9:35 PM CDT) SODIUM 130(L) 136 - 145 mmol/L 01/16/2025 10:12 PM CDT [facility] Blood BLOOD SPECIMEN / Unknown Capillary / Unknown 01/16/2025 9:35 PM CDT 01/16/2025 9:42 PM CDT Danny Cason MD CHEMISTRY Final Res ult Performing Organization Address City/[facility]/ZIP Co de Phone Number [facility] [address] [place], [place] [id number], [place] * POTASSIUM (01/16/2025 9:35 PM CDT) POTASSIUM 4.2 3.5 - 5.1 mmol/L 01/16/2025 10:12 PM CDT [facility] Blood BLOOD SPECIMEN / Unknown Capillary / Unknown 01/16/2025 9:35 PM CDT 01/16/2025 9:42 PM CDT Danny Cason MD CHEMISTRY Final Res ult [facility] [address] [place] [address], [place] * (ABNORMAL) CREATININE (01/16/2025 9:35 PM CDT) [facility] eGFR >90 >90 mL/min/1.7 3m2 01/16/2025 10:13 PM CDT [facility] Comment:As of 2021, eG FR is calculated by the CKD-EPI creatinine equation without race adjustment. eGFR can be influenced by muscle mass, exercise, and diet. The reported eGFR is an estimation only and is only applicable if the renal function is stable. CREATININE 0.55(L) 0.70 - 1.20 mg/dL 01/16/2025 10:13 PM CDT [facility] Blood BLOOD SPECIMEN / Unknown Capillary / Unknown 01/16/2025 9:35 PM CDT 01/16/2025 9:42 PM CDT us Danny Cason MD CHEMISTRY Final Res ult [facility] [address] [place] [address], [place] * STOOL PATHOGEN MULTIPLEX PCR PANEL (01/16/2025 2:55 PM CDT) [facility] Campylobacter NOT Detected NOT Detected 01/17/2025 6:40 PM CDT [facility] Salmonella NOT Detected NOT Detected 01/17/2025 6:40 PM CDT [facility] Shigella NOT Detected NOT Detected 01/17/2025 6:40 PM CDT [facility] Vibrio NOT Detected NOT Detected 01/17/2025 6:40 PM CDT [facility] Yersinia Enterocolitica NOT Detected NOT Detected 01/17/2025 6:40 PM CDT [facility] Shiga Toxin 1 NOT Detected NOT Detected 01/17/2025 6:40 PM CDT [facility] Shiga Toxin 2 NOT Detected NOT Detected 01/17/2025 6:40 PM CDT [facility] Norovirus NOT Detected NOT Detected 01/17/2025 6:40 PM CDT [facility] Rotavirus NOT Detected NOT Detected 01/17/2025 6:40 PM CDT [facility] Stool STOOL SPECIMEN / Unknown Non-Blood / Unknown 01/16/2025 2:55 PM CDT 01/16/2025 3:01 PM CDT Narrative [facility] - 01/17/2025 6:40 PM CDT This test is a Culture Independent Diagnostic Test (CIDT) therefore isolates are not available for susceptibility testing. Antibiotic treatment is often contraindicated and may be detrimental in cases of enteric infections, thus routine susceptibility testing is not recommended. us Luma Philippe MD MICROBIOLOGY Final Result [facility] [address] [place] [address], [place] * SCAN CORRESP-LABORATORY RESULTS (01/16/2025 2:36 PM CDT) Narrative 01/16/2025 2:36 PM CDT Ordered by an unspecified provider. us Other Clinical Staff OTHER Final Resul t * US ABDOMEN LIMITED ASCITES (01/16/2025 11:19 AM CDT) Anatomical Region Laterality Modality Abdomen Ultrasound 01/16/2025 11:2 5 AM CDT Impressions 01/16/2025 11:25 AM CDT Small volume ascites in all 4 quadrants and the midline pelvis. Dictated by Marcela Dominguez MD @ 01/16/2025 11:25:21 AM (Electronically Signed) Narrative 01/16/2025 11:25 AM CDT For Patients: As a result of the Century Cures Act, medical imaging exams and procedure reports are released immediately into your electronic medical record. You may view this report before your referring provider. If you have questions, please contact your health care provider. INDICATION: Alcoholic hepatitis, assess ascites COMPARISON: CT 01/06/2025 TECHNIQUE: Grayscale ultrasound of the 4 quadrants and midline pelvis. FINDINGS: Small volume ascites in all 4 quadrants and the midline pelvis. No substantial loculation or septation is identified. Procedure Note Marcela Dominguez MD - 01/16/2025 For Patients: As a result of the Cures Act, medical imagingexams and procedure reports are released immediately into your electronicmedical record. You may view this report before your referring provider.If you have questions, please contact your health care provider. INDICATION: Alcoholic hepatitis, assess ascites COMPARISON: CT 01/06/2025 TECHNIQUE: Grayscale ultrasound of the 4 quadrants and midline pelvis. FINDINGS: Small volume ascites in all 4 quadrants and the midline pelvis. Nosubstantial loculation or septation is identified. IMPRESSION: Small volume ascites in all 4 quadrants and the midline pelvis. Dictated by Marcela oDminguez MD @ 01/16/2025 11:25:21 AM (Electronically Signed) us Danny Cason MD US Final Res ult * CLOSTRIDIOIDES DIFFICILE TOXIN PCR (01/16/2025 9:52 AM CDT) CLOSTRIDIUM DIFFICILE PCR Negative 01/16/2025 11:33 AM CDT [facility] PRESUMPTIVE NAP1 STRAIN Negative 01/16/2025 11:33 AM CDT [facility] Stool STOOL SPECIMEN / Unknown Non-Blood / Unknown 01/16/2025 9:52 AM CDT 01/16/2025 10:04 AM CDT Narrative [facility] - 01/16/2025 11:33 AM CDT The NAP1 (027 or BI) strain is a hypervirulent strain. Detection may be useful for epidemiological purposes. us Luma Philippe MD MICROBIOLOGY Final Result [facility] [address] [place] [address], * Ammonia AM (01/16/2025 7:01 AM CDT) AMMONIA 20 11 - 51 umol/L 01/16/2025 7:35 AM CDT [facility] Blood BLOOD SPECIMEN / Unknown Venipuncture / Unknown 01/16/2025 7:01 AM CDT 01/16/2025 7:13 AM CDT Narrative [facility] - 01/16/2025 7:35 AM CDT 1. Sulfasalazine and its metabolite Sulfapyridine at therapeutic concentrations may lead to falsely low results. 2. Temozolomide and its metabolite MTIC may lead to falsely elevated results, and its metabolite AIC may lead to falsely low results. us Devyn Mohr MD CHEMISTRY Final Res ult [facility] [address] [place] [address], * (ABNORMAL) BASIC METABOLIC PANEL (01/16/2025 7:01 AM CDT) Only the most recent of2 resultswithin the time period is included. SODIUM 131(L) 136 - 145 mmol/L 01/16/2025 8:09 AM [facility] POTASSIUM 5.0 3.5 - 5.1 mmol/L 01/16/2025 8:09 AM [facility] CHLORIDE 101 98 - 107 mmol/L 01/16/2025 8:09 AM [facility] CO2,TOTAL 21(L) 22 - 29 mmol/L 01/16/2025 8:09 AM [facility] ANION GAP 9 5 - 18 01/16/2025 8:09 AM T [facility] GLUCOSE 100(H) 70 - 99 mg/dL 01/16/2025 8:09 AM [facility] CALCIUM 8.4(L) 8.8 - 10.4 mg/dL 01/16/2025 8:09 AM [facility] Comment: Reference ranges for this test were updated on 06/06/2024 to reflect our healthy population more accurately. Reference range changes are not retroactively applied to results, but previous results using the same methodology can be interpreted in the context of the new reference range. BUN 9 6 - 20 mg/dL 01/16/2025 8:09 AM CDT [facility] CREATININE 0.75 0.70 - 1.20 mg/dL 01/16/2025 8:09 AM CDT [facility] BUN/CREAT RATIO 12 10 - 20 8:09 AM CDT [facility] eGFR >90 >90 mL/min/1. 73m2 01/16/2025 8:09 AM CDT [facility] Comment:As of 2021, eG FR is calculated by the CKD-EPI creatinine equation without race adjustment. eGFR can be influenced by muscle mass, exercise, and diet. The reported eGFR is an estimation only and is only applicable if the renal function is stable. Blood BLOOD SPECIMEN / Unknown Venipuncture / Unknown 01/16/2025 7:01 AM CDT 01/16/2025 7:12 AM CDT us Devyn Mohr MD CHEMISTRY Final Res ult [facility] [address] [place] [address], [place] * CT ABDOMEN PELVIS W (01/06/2025 7:23 [...] a result of the Cures Act, medical imaging exams and procedure [...] of the visualized thoracolumbar spine. Procedure Note Jorge Luis Kothari DO - 01/06/2025 For Patients: As a [...] MD @ 01/06/2025 8:09:32 PM (Electronically Signed) us Cal COLEMAN CT Final Re sult * [...] a result of the Cures Act, medical imaging exams and procedure [...] 01/06/2025 8:04:38 PM (Electronically Signed) us Cal COLEMAN CT Final Re sult * TROPONIN T (HS) ACUTE W/2HR REFLEX (01/06/2025 5:20 PM CDT) TROPONIN T HS <6 6-15 ng/L ng/L 01/06/2025 5:53 PM CDT [facility] Blood BLOOD SPECIMEN / Unknown Venipuncture / Unknown 01/06/2025 5:20 PM CDT 01/06/2025 5:23 PM CDT [facility] - 01/06/2025 5:53 PM CDT hs-cTnT [...] us Cal COLEMAN CHEMISTRY Final Re sult [facility] [address] [place] [address] * (ABNORMAL) CBC WITH AUTO DIFFERENTIAL (01/06/2025 5:20 PM CDT) WHITE BLOOD COUNT 16.1(H) 4.5 - 11.0 thou/cu mm 01/06/2025 6:17 PM [facility] RED BLOOD COUNT 3.58(L) 4.30 - 5.90 mil/cu mm 01/06/2025 6:17 PM [facility] HEMOGLOBIN 12.2(L) 13.5 - 17.5 g/dL 01/06/2025 6:17 PM [facility] HEMATOCRIT 35.0(L) 37.0 - 53.0 % 01/06/2025 6:17 PM [facility] MCV 98 80 - 100 fL 01/06/2025 6:17 PM [facility] MCH 34.1(H) 26.0 - 34.0 pg 01/06/2025 6:17 PM [facility] MCHC 34.9 32.0 - 36.0 g/dL 01/06/2025 6:17 PM CDT [facility] RDW 19.8(H) 11.5 - 15.5 % 01/06/2025 6:17 PM CDT [facility] PLATELET COUNT 423 140 - 440 thou/cu mm 01/06/2025 6:17 PM CDT [facility] MPV 10.3 6.5 - 11.0 fL 01/06/2025 6:17 PM CDT [facility] Blood BLOOD SPECIMEN / Unknown Venipuncture / Unknown 01/06/2025 5:20 PM CDT 01/06/2025 5:23 PM CDT Cal COLEMAN HEMATOLOGY Final Re sult [facility] [address] [place] [address] * (ABNORMAL) RED CELL MORPHOLOGY (01/06/2025 5:20 PM CDT) Pathologist [facility] TARGET CELLS Moderate 01/06/2025 6:17 PM CDT [facility] RBC COMMENT Present(A) RBC morphology appears normal, RBC morphology within normal limits for newborns. 01/06/2025 6:17 PM CDT [facility] Blood BLOOD SPECIMEN / Unknown Venipuncture / Unknown 01/06/2025 5:20 PM CDT 01/06/2025 5:23 PM CDT Cal COLEMAN HEMATOLOGY Final Re sult [facility] [address] [place] [address] * (ABNORMAL) PLATELET ESTIMATE (01/06/2025 5:20 PM CDT) PLATELET ESTIMATE Increased (A) Adequate, No estimate 01/06/2025 6:17 PM CDT [facility] Blood BLOOD SPECIMEN / Unknown Venipuncture / Unknown 01/06/2025 5:20 PM CDT 01/06/2025 5:23 PM CDT Cal COLEMAN HEMATOLOGY Final Re sult [facility] [address] [place] [address] * (ABNORMAL) MANUAL DIFFERENTIAL (01/06/2025 5:20 PM CDT) % NEUTROPHILS 82.0 % 01/06/2025 6:17 PM CDT [facility] % LYMPHOCYTES 14.0 % 01/06/2025 6:17 PM CDT [facility] % MONOCYTES 3.0 % 01/06/2025 6:17 PM T [facility] % EOSINOPHILS 1.0 % 01/06/2025 6:17 PM T [facility] % BASOPHILS 0.0 % 01/06/2025 6:17 PM [facility] NEUTROPHILS ABSOLUTE 13.2(H) 1.7 - 7.0 thou/cu mm 01/06/2025 6:17 PM T [facility] LYMPHOCYTES ABSOLUTE 2.3 0.9 - 2.9 thou/cu mm 01/06/2025 6:17 PM T [facility] MONOCYTES ABSOLUTE 0.5 <0.9 thou/cu mm 01/06/2025 6:17 PM T [facility] EOSINOPHILS ABSOLUTE 0.2 <0.5 thou/cu mm 01/06/2025 6:17 PM T [facility] BASOPHILS ABSOLUTE 0.0 <0.3 thou/cu mm 01/06/2025 6:17 PM T [facility] Blood BLOOD SPECIMEN / Unknown Venipuncture / Unknown 01/06/2025 5:20 PM CDT 01/06/2025 5:23 PM CDT Cal COLEMAN HEMATOLOGY Final Re sult [facility] [address] [place] [address] * (ABNORMAL) BLOOD GAS,VENOUS (01/06/2025 5:20 PM CDT) PH, VENOUS 7.44(H) 7.32 - 7.43 01/06/2025 5:36 PM CDT [facility] PCO2, VENOUS 34(L) 41 - 51 mmHg 01/06/2025 5:36 PM CDT [facility] PO2, VENOUS 58(H) 35 - 40 mmHg 01/06/2025 5:36 PM CDT [facility] HCO3,VENOUS 23 22 - 29 mmol/L 01/06/2025 5:36 PM CDT [facility] BASE EXCESS, VENOUS, POCT -0.5 -2.0 - 3.0 01/06/2025 5:36 PM T [facility] O2 SATURATION, VENOUS 91(H) 70 - 75 % 01/06/2025 5:36 PM CDT [facility] PATIENT TEMPERATURE 37.0 Degrees C 01/06/2025 5:36 PM CDT [facility] Blood VENOUS BLOOD SPECIMEN / Unknown Venipuncture / Unknown 01/06/2025 5:20 PM CDT 01/06/2025 5:23 PM CDT Cal COLEMAN CHEMISTRY Final Re sult [facility] [address] [place] [address] * ETHANOL SERUM OR PLASMA (01/06/2025 5:20 PM CDT) ETHANOL <0.010 <0.010 g/dL 01/06/2025 5:46 PM CDT [facility] Blood BLOOD SPECIMEN / Unknown Venipuncture / Unknown 01/06/2025 5:20 PM CDT 01/06/2025 5:23 PM CDT Cal COLEMAN CHEMISTRY Final Re sult [facility] [address] [place] [address] * (ABNORMAL) D-DIMER,QUANTITATIVE (01/06/2025 5:20 PM CDT) D-DIMER,QUANTI TATIVE 2.12(H) <=0.49 FEU mcg/mL 01/06/2025 6:06 PM CDT [facility] Blood BLOOD SPECIMEN / Unknown Venipuncture / Unknown 01/06/2025 5:20 PM CDT 01/06/2025 5:23 PM CDT [facility] - 01/06/2025 6:06 PM CDT The cut off value for exclusion of Deep Vein Thrombosis and / or Pulmonary Embolism is 0.50 FEU mcg/mL For patients greater than 50 years of age the upper limit is age dependent and was calculated with the formula: (PATIENT AGE x 0.01) FEU mcg/mL = Upper limit of normal range us Cal COLEMAN HEMATOLOGY Final Re sult [facility] [address] [place] [address] * (ABNORMAL) PRO-BNP (01/06/2025 5:20 PM CDT) [facility] PRO-BNP 144(H) <125 pg/mL 01/06/2025 5:54 PM CDT [facility] Blood BLOOD SPECIMEN / Unknown Venipuncture / Unknown 01/06/2025 5:20 PM CDT 01/06/2025 5:23 PM CDT [facility] - 01/06/2025 5:54 PM CDT [...] OUTS Final Re sult Performing Organization Address [facility]/ZIP Co de Phone Number [facility] [address] [place] [address] * LIPASE (01/06/2025 5:20 PM CDT) [facility] LIPASE 28.4 13.0 - 60.0 IU/L 01/06/2025 5:53 PM CDT [facility] Blood BLOOD SPECIMEN / Unknown Venipuncture / Unknown 01/06/2025 5:20 PM CDT 01/06/2025 5:23 PM CDT Cal COLEMAN CHEMISTRY Final Re sult Performing Organization Address [facility] Co de Phone Number [facility] [address] [place] [address] * EKG 12 LEAD (01/06/2025 4:44 PM CDT) [facility] Interpretation Sinus tachycardia Otherwise normal ECG When compared with ECG of 11-Oct-2024 11:04, No significant change was found [facility] Ventricular Rate 105 BPM [facility] NOW Atrial Rate 105 BPM [facility] NOW P-R Interval 146 ms [facility] NOW QRS Duration 94 ms BEYOND NOW QT 356 ms [facility] NOW QTc 470 ms BEYOND NOW P [place] 23 degrees BEYOND NOW R [place] 29 degrees BEYOND NOW T [place] 9 degrees BEYOND NOW 01/06/2025 4:44 PM CDT 01/06/2025 10:06 PM CDT us Cal COLEMAN EKG ORD Final Re sult Performing Organization Address City/[facility] Co de Phone Number [facility] NOW [place], [place] * (ABNORMAL) LIPID PANEL (12/27/2024 3:10 PM CDT) CHOLESTEROL, TOTAL TNP mg/dL [facility] Comment: TEST NOT PERFORMED Specimen is icteric. HDL CHOLESTEROL 7(L) > OR = 40 mg/dL [facility] TRIGLYCERIDES 468(H) <150 mg/dL [facility] Comment: If a non-fasting specimen was collected, consider repeat triglyceride testing on a fasting specimen if clinically indicated. Win et al. J. of Clin. Lipidol. 2015;9:129-169. LDL-CHOLESTEROL [facility] Comment: Result not calculated because [...] LDL-C. Hao SS et al. MADDY. 2013;310(19): 2304-7723 (http://education.All [employer]/faq/YZM818) CHOL/HDLC RATIO [facility] Comment: Result not calculated because one or more required values not available. NON HDL CHOLESTEROL [facility] Comment: Result not calculated because [...] 01/01/2025 1:30 PM CDT FASTING:NO FASTING: NO Vikas Oliver MD CHEMISTRY Final Result [facility] [address] [place] [address], [facility] [address] [place] [address] * ANTI HCV (11/25/2021 10:00 AM CDT) HEPATITIS C ANTIBODY Non-React maritza Non-React maritza 11/26/2021 10:49 AM CDT [facility] Comment:Antibodies to HCV no t detected; does not exclude the possibility of exposure to HCV. Blood BLOOD SPECIMEN / Unknown Venipuncture / Unknown 11/25/2021 10:00 AM CDT 11/25/2021 10:03 AM CDT us Henny COLEMAN SEND OUTS Final Resu lt [facility] [address] [place] [address], [place] from Last 3 Months or Most Recently Relevant to Health Maintenance Insurance [facility] Advance Directives * Full Code (Latest Code Status on File) Date Activated Date Inactivated Comments 01/16/2025 12:35 AM 01/17/2025 6:43 PM Question Answer Comments Code Status Discussion: Reviewed Preferences Care Teams Beauty Therapist Relationship Specialty Start Date End Date Vikas Oliver MD [address] [place], [place] [id number] PCP - General Family Practice 12/27/24
--- OUTSIDE RECORDS SUMMARY | 2025-01-24 00:34 | XMS_ITS | Encounter Summary ---
Author Organization [facility] Address [address] [place] [address] Care Team Providers Care Rack Cleaner Name Role Phone Elsewhere, Pcp Primary Care Provider Unavailabl e Reason for Referral * Outpatient (Routine) - Authorized Specialty Diagnoses / Procedures Referred By Contac t Referred To Contact Diagnoses Other Seizures (HCC) Procedures EEG routine - awake and sleep OR INJ TRIGGER PNT >=3 MUS Carmella Contreras M.D. [address] [place] [address] Phone: tel: fax: [facility] Region Referral ID Status Reason Start Date Expiration Date V isits Requested Visits Authorized [id number] Authorized 12/29/2024 03/31/2026 1 1 * Outpatient (Routine) - Authorized Specialty Diagnoses / Procedures Referred By Contac t Referred To Contact Neurology Diagnoses Other Seizures (HCC) Carmella Contreras M.D. [address] [place] [address] Phone: tel: fax: [facility] Region Referral ID Status Reason Start Date Expiration Date V isits Requested Visits Authorized [id number] Authorized 12/29/2024 06/30/2026 1 1 Encounter Details Date Type Department Care Team (Late st Contact Info) Description 12/29/2024 Clinical Communication [facility] [address] [place] [address] Nate Pinto M.D. [address] [place] [address] Social History Tobacco Use Types Packs/Day Years Used Date Smoking Tobacco: Never Smokeless Tobacco: Never Alcohol Use Standard Drinks/Week Comments Yes 84 (1 standard drink = 0.6 oz pure alcohol) Detox for withdrawal 02/08/2022 [facility] Utilities Answer Date Recorded In the past 12 months has [facility] [employer], gas, oil, or water [employer] threatened to shut off services in your [...] your living situation today? I have a [facility] place to live 12/29/2024 Sex and Gender Information Value Date Recorded Sex Assigned at Not on file Legal Sex Male 12:18 PM CDT Gender Identity Not on file Sexual Orientation Not on file documented as of this encounter Plan of Treatment Scheduled Orders Name Type Priority Associated Diagnoses [...] Primary documented in this encounter Care Teams Rack Cleaner Relationship Specialty Start Date End Date Elsewhere, Pcp PCP - General Internal Medicine 02/10/22 documented as of this encounter
== END 2025-01-15 22:29 | disposition home or self-care (01) ==
LOC: AMB 01-23 10:32
PROVIDERS: Visit Provider Emergency Medicine Emergency Medical Services
DX: K72.90 Hepatic failure, unspecified without coma (principal)
CPT/HCPCS: A0425; A0429

== ENCOUNTER 2025-02-08 13:52 | Outpatient (CLI) | payer OTHER, SELFPAY ==
[2025-02-08] VITALS (8 sets, daily range): BP systolic 97–118; BP diastolic 55–64; PULSE 103–111; RESP 16–18; O2SAT 96–100
--- NOTE | 2025-02-08 13:53 | PM.GSCN ---
History of Present Illness Consult details Date Seen: 02/08/25 Consult date: 02/08/25 Narrative: The patient is a 34-year-old male with alcoholic cirrhosis with varices, currently on Lasix and spironolactone here today for therapeutic paracentesis. He was admitted to [facility] from January 30 through February 02 where he underwent an EGD and colonoscopy for anemia. He was found to have grade 1 varices and bleeding from internal hemorrhoids. He also underwent paracentesis. 2.5 L of fluid was removed. Since then he has had worsening abdominal distention and pain. No significant shortness of breath. His gastroenterologists has ordered repeat therapeutic paracentesis. He has no other medical issues and has not had abdominal surgery. [facility] Social History Smoking Status: Never smoker Do you use any of these nicotine containing products: None How often do you have a drink containing alcohol: 2-3 times a week AUDIT-C Alcohol total score: 3 Non-prescribed substance use: denies use Meds Home Medications and Allergies Home Medications ?Medication ?Instructions ?Recorded ?Confirmed ?Type No Known Home Medications 01/15/25 01/15/25 History Allergies Allergy/AdvReac Type Severity Reaction Status Date / Time No Known Drug Allergies Allergy Verified 01/21/23 14:42 Exam Narrative: Exam Narrative: General: No acute distress HEENT: Scleral icterus noted CV: Mildly tachycardic in the low 100s but regular. Abdomen: Protuberant. Mild distention but soft. No scars noted. Results Labs Labs: Most recent platelets from [facility] chart were 258. INR 1.7. Imaging Abdomen CT scan report/results: report reviewed and image reviewed Additional studies: CT abdomen and pelvis done at [facility] 01/06/2025: INDICATION: Abdominal pain. TECHNIQUE: Multiplanar CT examination of the abdomen and pelvis was performed after the administration of 100 mL Omnipaque 350 intravenous contrast. COMPARISON: CT abdomen pelvis 10/11/2024. FINDINGS: Lower chest: No focal consolidation. Normal heart size. No pleural effusions or pneumothorax. Linear bandlike opacifications of the lungs bilaterally, likely subsegmental atelectasis and/or scarring. Liver: Cirrhotic liver morphology. Gallbladder: Mild gallbladder wall thickening. Biliary: Unremarkable. Pancreas: Within normal limits. Spleen: Splenomegaly. Adrenal glands: Unremarkable. Renal/ureters/bladder: Normal in size and symmetrically enhancing. No obstructive uropathy. No hydronephrosis or obstructive urinary calculi. No suspicious renal masses. The ureters appear unremarkable. The bladder is within normal limits. Pelvis: Unremarkable. Gastrointestinal: Diffuse pancolonic wall thickening, likely portal colopathy. No bowel obstruction. Normal appendix. No significant colonic diverticulosis. Mild colonic stool burden. Vasculature: No aortic aneurysm. The portal vein remains patent. Mild atherosclerotic calcifications. Gastroesophageal and splenic varices. Lymph nodes: No pathologic lymphadenopathy by size criteria. Peritoneum: Small volume ascites. No drainable fluid collections. No pneumoperitoneum. Abdominal wall/soft tissues: Soft tissue nodule in the left anterior abdominal wall, likely sebaceous cyst. Bones: No acute osseous abnormalities. Multilevel degenerative changes of the visualized thoracolumbar spine. IMPRESSION: 1. Cirrhotic liver morphology with stigmata of portal venous hypertension, including small volume of ascites, gastroesophageal and splenic varices and splenomegaly. 2. Mild gallbladder wall thickening is nonspecific and can be seen with hepatic dysfunction. 3. Moderate pancolonic wall thickening, nonspecific but suggestive of portal colopathy. Progress Note:A&P Assessment and plan (1) Cirrhosis, alcoholic: Status: Acute (2) Ascites: Status: Acute (3) Anemia: Status: Acute (4) GI bleed: Status: Acute (5) Varices of esophagus determined by endoscopy: Status: Acute (6) Splenomegaly: Status: Acute Plan The patient is a 34-year-old male who is here today for therapeutic paracentesis. Risks and benefits of the procedure were discussed and he agreed to proceed. He understands that he may need repeat procedures. I recommended that he try to push them out as far as he is able to minimize risk with repeat poke, however this can be sometimes difficulty with scheduling. He will follow-up with GI as scheduled.
--- NOTE | 2025-02-08 15:11 | W.PM.PARA ---
Paracentesis Date Date: 02/08/25 Procedure Note Procedure: Paracentesis with Ultrasound Guidance Type of paracentesis: Therapeutic Initial or Repeat?: Repeat Surgeon: Phuong Calzada Indications: The patient is a 34-year-old male who has developed ascites secondary to cirrhosis. He previously underwent paracentesis last week. 2500 mL were removed. He presents again for therapeutic paracentesis secondary to abdominal distension and discomfort. Labs and Cytology Sent:: No Albumin infused: Yes Procedure Note:: Prior to the procedure, the risks and benefits of the procedure were discussed and an informed consent was obtained. Patient identification was confirmed and TIME OUT was performed. An ultrasound was brought onto the field and an easily accessible pocket of ascites was identified that was away from intraabdominal organs. The patient's abdomen in the right mid abdomen was prepped and draped in the usual sterile fashion. 1% Lidocaine was used to anesthetize the skin, soft tissues and peritoneum over the proposed needle insertion site. A skin incision was made with a scalpel just large enough to fit the needle. The needle with the paracentesis catheter was advanced into the abdomen and ascitic fluid was aspirated into the syringe. The needle was then withdrawn and the catheter was left in place. The catheter was then connected to the drainage tubing. Unfortunately, no fluid returned and the catheter was adjusted. Ultrasound was placed and the catheter appeared to have pulled back against the peritoneum. This was removed and a 2nd attempt was made again under ultrasound guidance. The catheter was advanced slightly further this time into the fluid collection and the needle removed. There was then excellent return of fluid. 4 Liters of straw colored fluid were drained. One bottle of 25% albumin was infused. The catheter was then removed and the skin was closed with Dermabond. Patient tolerated procedure well and there were no immediate complications. Patient's vital signs were stable throughout the procedure. Recomendation: Discharge to home (ambulatory) and return to normal activities tomorrow. Follow up with referring provider as needed.
== END 2025-02-08 15:35 | disposition home or self-care (01) ==
LOC: US 13:52
PROVIDERS: Visit Provider Surgery
DX: K70.31 Alcoholic cirrhosis of liver with ascites (principal); K92.1 Melena
CPT/HCPCS: 49083; P9047